=== PATIENT | female | born 1985 | race Caucasian/White ===

== ENCOUNTER 2023-10-07 12:37 | Inpatient (IN) | payer OTHER, SELFPAY ==
[2023-10-07] VITALS (20 sets, daily range): BP systolic 109–153; BP diastolic 64–108; BMI 32.9
--- NOTE | 2023-10-07 09:29 | ED.GENMED ---
History of Present Illness
General
Chief Complaint: Seizure
Source: patient and ambulance crew
Exam Limitations: none
Time Seen by Provider: 10/07/23 09:16
Nursing documentation reviewed up to this point in time: agreed with
Travel History
Have you had any contact with someone who has COVID-19?: No
Do you have any symptoms of coronavirus? Fever > 100 degrees, chills, cough, shortness of breath, sore throat, loss of taste or smell, muscle aches, or headache?: No
History of Present Illness
History of Present Illness:
38-year-old female presents emergency department due to seizure, jaundice and fever. She went to the bathroom, and had a seizure. She has some low back pain but denies any other pain.
Past History
Past History
ED Past Medical History: None
ED Past Surgical History: Gynecological (Ectopic pregnancies with removal of left fallopian tube)
Social History
Tobacco: Non-smoker
Alcohol: Binge drinker
Drug: None
Personal:
Living: with family
Review of Systems
Review of Systems
Allergies reviewed?: Yes
All Other Systems: Not applicable
Constitutional: Reports fever
EENT: Reports other (Bit tongue)
Respiratory: Reports no symptoms
Cardiac: Reports no symptoms
ABD/GI: Reports no symptoms
: Reports no symptoms
Musculoskeletal: Reports back pain
Skin: Reports no symptoms
Neurological: Reports other (Seizure)
Endocrine: Reports no symptoms
Hematologic/Lymphatic: Reports no symptoms
Psychiatric: Reports no symptoms
Phy Exam
Physical Exam
Physical Exam:
Physical Exam
General: Fever 101.3
Neck: supple. no meningeal signs. normal posterior pharynx
Heart: s1/s2 tachycardia, no murmur. equal radial
pulses.
HEENT: Pupils equal round reactive to light, EOMI, scleral icterus
Lungs: no acute respiratory distress. clear bilaterally
Abdomen: normal bowel sounds. not tender. no CVAT
Neuro: alert and oriented. no focal neurological deficits cranial nerves II through XII intact
Skin: Jaundice
Psychiatric: well kept. interactive and cooperative
Extremities: no edema. no calf tenderness. negative homans. good distal pulses
Course
Orders/Labs/Results
Orders:
Orders
10/07/23 09:16
Cardiac Monitoring- Treatment ONCE
IV Insert/Care/Rem.- Treatment PRN
Pulse Ox/cont/shift [RESP] Urgent
Quantity: 1
10/07/23 09:23
Complete Blood Count/With Diff Urgent
Comprehensive Metabolic Panel Urgent
Lactic Acid Q4H
Comment: CANCEL 2nd LACTIC ACID IF 1st LACTIC ACID IS LESS THAN 2
PTT Urgent
Prothrombin Time Urgent
Blood Culture Q30M
LILIBETH Source: Blood/Venous
Specimen Description:
10/07/23 09:26
COVID-19 Antigen Urgent
Source: Nasal Swab
Blood Culture Q30M
LILIBETH Source: Blood/Venous
Specimen Description:
Influenza A+B Rapid Molecular Urgent
LILIBETH Source: Nasal Swab
Specimen Description:
10/07/23 09:27
US Abdomen Complete/Upper Urgent
Comment:
Reason For Exam: jaundice, fever
10/07/23 09:28
CT Head W/o Iv Contrast Urgent
Comment:
Reason For Exam: seizure, jaundice
10/07/23 10:07
0.9% Sodium Chloride 1000 ml [Nss] 1,000 ml IV BOLUS
10/07/23 10:12
CR Chest - 2 Views Urgent
Comment:
Reason For Exam: fever
10/07/23 10:48
Ammonia Urgent
Urinalysis Reflex To Culture Urgent
Date Specimen was Collected: 10/07/23
Time Specimen was Collected: 10:45
Urine Microscopic Reflex Cult Urgent
Urine Culture Urgent
LILIBETH Source: U
Specimen Description:
Date Specimen was Collected: 10/07/23
Time Specimen was Collected: 10:45
10/07/23 11:22
Cefepime HCl [Maxipime] 2,000 mg IV NOW STA
10/07/23 11:52
Alcohol Routine
Urine Drug Abuse Screen Routine
Lorazepam [Ativan] 2 mg .ROUTE .STK-MED ONE
10/07/23 11:57
Lorazepam [Ativan] 4 mg .ROUTE .STK-MED ONE
10/07/23 13:30
Lactic Acid Q4H
Comment: CANCEL 2nd LACTIC ACID IF 1st LACTIC ACID IS LESS THAN 2
Abnormal Lab Results
10/07/23 10/07/23
09:23 10:48
WBC 11.7 H 10^3/uL
(4.8-10.8)
MCH 31.4 H pg
(27.0-31.0)
RDW 17.2 H %
(11.5-14.5)
Plt Count 102 L 10^3/uL
(130-400)
MPV 11.8 H fL
(7.4-10.4)
Abs Immat Gran (auto) 0.2 H 10^3/uL
(0-0.05)
Absolute Neuts (auto) 8.8 H 10^3/uL
(1.4-6.5)
Absolute Monos (auto) 0.7 H 10^3/uL
(0.1-0.6)
Immature Gran % 1.3 H %
(0-0.5)
Lymphocytes % 17.7 L %
(20.5-51.1)
PT 18.2 H Sec
(11.4-14.6)
APTT 38.3 H Sec
(23.4-35.0)
Carbon Dioxide 16 L mmol/L
(22-30)
Glucose 151 H mg/dl
(70-99)
Lactic Acid 7.5 H* mmol/L
(0.7-2.0)
Total Bilirubin 6.4 H mg/dl
(0.2-1.3)
AST 316 H U/L
(14-36)
ALT 101 H U/L
(0-35)
Alkaline Phosphatase 318 H U/L
(38-126)
Ammonia 32 H umol/L
(9-30)
Total Protein 8.7 H g/dl
(6.3-8.2)
Urine Ketones Trace A
(Negative)
Ur Occult Blood Reflex 4+ A
(Negative)
Urine Nitrite (Reflex) Positive A
(Negative)
Urine Bilirubin 2+ A
(Negative)
Urine Urobilinogen 4+ A
(Neg - 1+)
Leukocyte Esterase Rfl 2+ A
(Negative)
Urine RBC 3-6 A /HPF
(0-2)
Urine WBC (Reflex) 70-80 A /HPF
(0-5)
Urine Bacteria (Reflex) Moderate A
(Negative)
Urine Albumin (Reflex) 2+ A
(Neg - Trace)
10/07/23 09:23
10/07/23 09:23
Vital Signs
Initial and Last Documented VS:
Initial Vital Signs
BP
123/84
10/07/23 09:08
Last Documented Vital Signs
Temp Pulse Resp BP Pulse Ox
101.3 F H 129 26 129/85 94
10/07/23 09:09 10/07/23 12:00 10/07/23 12:00 10/07/23 11:00 10/07/23 12:00
MDM/Problems Addressed
Differential Diagnosis Includes:
Sepsis, UTI, pneumonia, cirrhosis, hepatic failure, alcoholism
MDM/Problems Addressed:
38-year-old female with seizure, fever, jaundice, UTI, sepsis. IV fluids given. Cefepime ordered. Suspect seizure may be result of alcohol withdrawal. Admit to hospitalist.
*Radiology
Radiology exam reviewed: preliminary read by ED provider (Chest x-ray no acute findings) and radiology read reviewed (Ultrasound shows hepatomegaly with likely cirrhosis, distended gallbladder without cholelithiasis, CT head no acute findings)
*Pulse Oximetry
Patient hypoxic: no
*Dining Room Host/Hostess Interpretation
Rate: tachycardiac
Interpretation: abnormal
Heart Rate: 101
Rhythm: sinus tachycardia
*Critical Care Note
Total Time (30-74mins, 75-104mins- exclusive of procedures): 30
comment:
Critical care statement: A total of 30 minutes of critical care time was provided for this patient. This includes management of unstable vital signs, evaluation of the patient at bedside, reviewing the patient's pertinent medical records, discussion
with consultants, review of old EKGs and review of pertinent medical records. This time with separate from time utilized to perform the aforementioned documented procedures
Patient Management
Social determinants of health affecting care: Living situation and Strong social support
Discussion with other providers: Hospitalist
Escalation/DeEscalation of care consider admission/obs:
Admit indicated
Update Note
Update Note:
Patient had seizure while I was in the room. She asked me to adjust the bed and then had a complex procedure. She bit her tongue, seizure lasted between 1 and 2 minutes. 3 mg IV Ativan given. She is awake but agitated. Discussed with
Mazin, who states that she drinks daily, but did not drink for the past 2 days.
ED Attending Note
-
Portions of this chart may have been created with voice recognition software.� Occasional wrong word or��sound alike� substitutions may have occurred due to the inherent limitations of voice recognition software.
Discharge Plan
Departure
Patient Disposition: Admit
Date of Disposition: 10/07/23
Time of Disposition: 11:27
Admit to: ICU
Presentation/result/management discussed w/ accepting MD/DO: Hospitalist
Patient with high blood pressure during this ER visit?: Yes
Condition: Fair
Discharge Problem:
Sepsis, UTI (urinary tract infection), Jaundice, Cirrhosis, Seizure, Alcohol withdrawal
Prescriptions:
No Action
No Current Medications
0
Referrals:
NONE,* [Family Provider] -
Interventions
Interventions:
*Risk Screen - Suicide Last Done: 10/07/23 09:16
*General Assessment Last Done: 10/07/23 09:16
*Neglect/Abuse Screening Last Done: 10/07/23 09:16
ED- Fall Risk Assessment Last Done: 10/07/23 09:16
*ED COVID-19 Vaccine History Last Done: 10/07/23 09:16
ED- Cardiac Assessment Last Done: 10/07/23 09:16
ED- Neurological Assessment Last Done: 10/07/23 09:16
ED- Pulmonary Assessment Last Done: 10/07/23 09:16
[2023-10-07 09:44] LABS: % Basophils 0.5 % (0-2); % Eosinophils 0.1 % (0-6); % Immature Granulocytes 1.3 % (0-0.5); % Lymphocytes 17.7 % (20.5-51.1); % Monocytes 5.8 % (1.7-9.3); % Neutrophils 74.6 % (42.2-75.2); Absolute Basophils 0.1 10^3/uL (0-0.2); Absolute Immature Granulocytes 0.2 10^3/uL (0-0.05); Absolute Lymphocytes 2.1 10^3/uL (1.2-3.4); Absolute Monocytes 0.7 10^3/uL (0.1-0.6); Absolute Neutrophils 8.8 10^3/uL (1.4-6.5); Hematocrit 39.4 % (37.0-47.0); Hemoglobin 13.7 g/dL (12.0-16.0); Mean Corp Hgb Conc. 34.8 g/dL (33.0-37.0); Mean Corpuscular Hgb 31.4 pg (27.0-31.0); Mean Corpuscular Volume 90.4 fL (81.0-99.0); Mean Platelet Volume 11.8 fL (7.4-10.4); Nucleated Red Blood Cells % 0 %; Platelet Count 102 10^3/uL (130-400); Red Blood Cell Count 4.36 10^6/uL (4.20-5.40); Red Cell Dist. Width 17.2 % (11.5-14.5); White Blood Cell Count 11.7 10^3/uL (4.8-10.8)
[2023-10-07 09:53] LABS: INR 1.53; PT 18.2 Sec (11.4-14.6)
[2023-10-07 09:54] LABS: APTT 38.3 Sec (23.4-35.0)
[2023-10-07 09:57] LABS: ALT (SGPT) 101 U/L (0-35); AST (SGOT) 316 U/L (14-36); Albumin 4.4 g/dl (3.5-5.0); Alkaline Phosphatase 318 U/L (38-126); Blood Urea Nitrogen 7 mg/dl (7-17); Calcium 8.9 mg/dl (8.4-10.2); Carbon Dioxide 16 mmol/L (22-30); Chloride 99 mmol/L (98-107); Estimated Creatinine Clearance > 125 ml/min; Glucose 151 mg/dl (70-99); Potassium 3.5 mmol/L (3.5-5.1); Sodium 136 mmol/L (135-145); Total Bilirubin 6.4 mg/dl (0.2-1.3); Total Protein 8.7 g/dl (6.3-8.2); eGFR > 60.00
[2023-10-07 10:01] LABS: Lactic Acid 7.5 mmol/L (0.7-2.0)
[2023-10-07 10:12] LABS: COVID-19 Antigen Negative (Negative)
[2023-10-07] MEDS: NSS 1000 IV ×2 (10:55→16:55)
[2023-10-07 10:57] LABS: Urine Albumin 2+ (Neg - Trace); Urine Bilirubin 2+ (Negative); Urine Character Slightly Cloudy (Clear); Urine Color Amber; Urine Glucose Negative (Negative); Urine Ketone Trace (Negative); Urine Leukocyte 2+ (Negative); Urine Nitrite Positive (Negative); Urine Occult Blood 4+ (Negative); Urine Specific Gravity 1.015 (<1.030); Urine Urobilinogen 4+ (Neg - 1+)
[2023-10-07 11:08] LABS: Ammonia 32 umol/L (9-30)
[2023-10-07 11:15] LABS: Urine Bacteria Moderate (Negative); Urine Squamous Cell 0-2 /LPF (Few); Urine White Cell 70-80 /HPF (0-5)
--- NOTE | 2023-10-07 12:08 | EDRN ---
1150 Dr. Gutierrez with at the bedside discussing results and adjusting the head of the stretcher for the patient. Loud yell heard and a verbal order for IV ativan given. Patient currently seizing having yelled out prior to seizure. Tonic clonic
seizing, bleeding from mouth, jaw clamped, SPO2 dropping. Suction used and O2 provided with BVM ready if needed. 2mg ativan given IVP with some response. Additional 1mg ativan IVP administered. Dr. Kori Burroughs is now at the bedside discussing with
Matt and then family who were at the bedside. Orders for ICU to be provided.
--- NOTE | 2023-10-07 12:20 | HPS.HSE ---
Family Physician
-
Family Physician: * NONE
Chief Complaint
-
Seizure episode confusion
History of Present Illness
Patient is 38-year-old female with past medical history of alcohol use disorder, history of miscarriage, obesity was brought in by family after patient had a seizure at home. During my evaluation in ER patient delirious not able to provide any
information, this has been gathered from patient family who is at bedside. Patient has history of alcohol use disorder and drinks bottle of vodka in a day or 2, have history of possible seizure once before although no history of alcohol withdrawal.
No history of head trauma/motor vehicle accident. Patient had last drink on Sunday evening and today in the morning patient was going to bathroom and ended up having seizure. No visible lacerations/cuts on the body. Patient will being evaluated
in ER had a second witnessed seizure got total of 3 mg of Ativan. Patient had tongue bite from the seizure episode.
Patient overall was in her usual state of health otherwise did not have any problem chest pain/shortness of breath/cough/fever/abdominal pain/nausea/vomiting for last few days.
Medical History
Past Medical History
Past Medical History: Reports Other
Additional Past Medical History:
History of miscarriage, obesity
Past Surgical History: Reports Other
Social History
Tobacco: Non-smoker
Alcohol: Daily (Half to 1 bottle of vodka)
Drug: None
Personal:
Living: With Family
Employment: Employed
Family History
Family History: Not pertinent
Allergies / Home Medications
Allergies reflects when Allergies were last updated in [employer].
Home Medications with original date entered in [employer]
Allergy/Medication List:
Allergies
Allergy/AdvReac Type Severity Reaction Status Date / Time
No Known Allergies Allergy Unverified 10/07/23 09:16
Home Medications
No Meds [No Current Medications] 10/07/23
Review of Systems
-
Unable to obtain full review of systems at this time due to: Acuity
Physical Exam
Vital Signs
Vital Signs
Temp Pulse Resp BP Pulse Ox
101.3 F H 129 26 129/85 94
10/07/23 09:09 10/07/23 12:00 10/07/23 12:00 10/07/23 11:00 10/07/23 12:00
Physical Exam
General: Pain and Obese
HEENT: Atraumatic, Oxygen (NC) and Other (Blood from mouth)
Respiratory: Rhonchi
Cardiac: S1/S2, Regular Rhythm and Tachycardia; No Murmur
GI: Soft, Non Distended, Normal Bowel Sounds and Tender; No Organomegaly
Musculoskeletal: No Edema
Skin: No Rash
Neuro: Awake and No Motor Deficits; No Oriented
Psych: Confused
Laboratory Results
-
10/07/23 09:23
10/07/23 09:23
Laboratory Results
PT 18.2 Sec (11.4-14.6) H 10/07/23 09:23
INR 1.53 10/07/23 09:23
APTT 38.3 Sec (23.4-35.0) H 10/07/23 09:23
Lactic Acid 7.5 mmol/L (0.7-2.0) H* 10/07/23 09:23
Total Bilirubin 6.4 mg/dl (0.2-1.3) H 10/07/23 09:23
AST 316 U/L (14-36) H 10/07/23 09:23
ALT 101 U/L (0-35) H 10/07/23:23
Alkaline Phosphatase 318 U/L (38-126) H 10/07/23 09:23
Data Reviewed
-
Diagnostic Radiology: Image Personally Visualized and interpreted, Report Reviewed by me, Discussed with Physician and Discussed with Family
Lab Data: Labs Reviewed by me, Discussed with Physician and Discussed with Family
Impression/Plan
-
CT head
No acute intracranial abnormality.
Abd US
Hepatomegaly with diffuse fatty infiltration and microlobulated border, latter suggesting possible cirrhotic morphology.
Distended gallbladder without findings to confirm cholelithiasis. Gallbladder sludge versus incidental reverberation artifact. No findings to suggest intrahepatic biliary tract dilatation. Negative sonographic Montesinos's sign.
Chest xr
Low lung volumes.
No focal parenchymal consolidation to suggest pneumonia.
Mild elevation of left hemidiaphragm with minor left basilar subsegmental atelectasis.

1. Alcohol use disorder
Alcohol withdrawal
Toxic metabolic encephalopathy from Alc withdrawal
-Patient drinks half to 1 bottle of vodka every day. No previous history of withdrawal
-Blood alcohol level and urine drug screen pending in the ER
-Last reported drink on 10/05 evening.
-Patient tachycardic/delirious/seizures, likely with alcohol withdrawal and started on Precedex drip.
-MSAS/Ativan ordered
-will consider Phenobarb protocol if not improved with ativan/precedex
-Admit to ICU for close monitoring
2. Sepsis from UTI
-Tachycardic/febrile/Mild leukocytosis
-UA showing significant pyuria and bacteriuria
-Urine culture and blood culture collected in ER
-Got cefepime in ER, continue
3. Liver cirrhosis
Jaundice
Coagulopathy
Thrombocytopenia
-Abdominal ultrasound showing microlobulated liver border suggestive of cirrhotic morphology
-No previous diagnosis of liver cirrhosis
-Have associated thrombocytopenia/jaundice/transaminitis/coagulopathy
-INR 1.53, continue monitoring
-AST 316/ALT 101 suggestive alcohol related liver inj. Discriminant factor of 23.
-T kayden 6.4, direct bilirubin check ordered
-NH3 wnl .
-GI consulted to follow with new dx of liver cirrhosis
4. Seizure episode
-Likely alcohol use and alcohol withdrawal related
-CT head within normal limit
-Discussed with neurology, recommended loading of 1 g Keppra. Further dosing per neuro
-neuro planning to do an EEG emergently
DVT PPX - SCD
Full code
Discussed with Patient Family at Bedside
Discussed with neurology/GI/wheat shipper
Total time spent : 90 mins
I personally saw and examined the patient.
I have reviewed all diagnostic interpretations and treatment plans as written.
Time includes patient management by me, time spent at the patients bedside, time to review lab and imaging results, discussing patient care, documentation in the medical record, and time spent with the family or caregiver and discussing care plan
with RN/Consultants.
[2023-10-07] MEDS: KEPPRA 1000 MG IV (12:31)
[2023-10-07] MEDS: MAXIPIME 2000 MG IV ×2 (12:32→19:54)
[2023-10-07] MEDS: ATIVAN 3 MG IV (12:41)
--- NOTE | 2023-10-07 13:33 | CON.INTV ---
Consultation
Consultation Request
Date/Time Consultation Requested: 10/07/2023-1:30 PM
Date/Time Consultation Performed: 10/07/2023-1:30 PM
Requesting Provider: Hospitalist
Performing Provider: Dr. Esparza
Reason for Consultation: Alcohol withdrawal/seizures/critical care management
Medical History
-
Chief Complaint: Alcohol withdrawal/seizure
History of Present Illness:
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 Patient is actually alert
and cooperative in the emergency room receiving an EEG. She complains of some mild shortness of breath but no chest pain, chest congestion, productive cough, abdominal pain, nausea, weakness, increased swelling. She states that she has had perhaps
a seizure once before. Her last drink was 10/05/2019 4 in the evening. She has been hospitalized for withdrawal in the past.
Past Medical History
Past Medical History: None (Alcohol use disorder. Obesity.)
Social History
Tobacco: Non-smoker
Alcohol: Daily (Half a bottle of vodka)
Drug: None
Personal:
Living: With Family
Occupational Exposures: No known asbestos exposure
Environmental Exposures: No known tuberculosis exposure
Family History
Family History: Reviewed & Not Pertinent
Allergies / Home Medications
Allergies
Allergy/AdvReac Type Severity Reaction Status Date / Time
No Known Allergies Allergy Unverified 10/07/23 09:16
Home Medications
Medication Instructions Recorded Confirmed Last Taken Type
No Meds [No Current Medications] 10/07/23 10/07/23 Unknown History
Review of Systems
-
Unable to Obtain full review of systems at this time due to: Other (Per HPI)
Vitals / Labs / Diagnostic Testing
Vital Signs
Temp Pulse Resp BP Pulse Ox
101.3 F H 121 27 126/87 99
10/07/23 09:09 10/07/23 13:00 10/07/23 13:00 10/07/23 13:00 10/07/23 12:45
Lab Data
10/07/23 09:23
10/07/23 09:23
Laboratory Results
10/07/23
09:23
PT 18.2 H
INR 1.53
APTT 38.3 H
Microbiology
10/07/23 09:26 Nasal Swab Influenza Types A & B (AMAN) - Final
Negative for Influenza A & B, NAAT
Negative results must be combined with clinical observations
and patient history.
Nucleic Acid Amplification test (NAAT)performed on the
[employer] platform.
Diagnostic Testing:
Physical Exam
-
Exam:
Well-nourished and well-developed in no apparent distress
HEENT-atraumatic, normocephalic
Neck-supple, no JVD, no bruit
Heart-regular rate and rhythm-no murmurs, rubs or gallops
Chest-clear to auscultation, no wheezes, crackles
Back-no tenderness
Abdomen-soft, nontender, nondistended, no hepatosplenomegaly
Extremities-no cyanosis, clubbing, edema and good peripheral pulses
Integument-intact, no rashes, lesions or ecchymosis
Neurology-alert and oriented, nonfocal motor and sensory exam
Assessment
-
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
Assessment
Alcohol withdrawal/DTs/seizures-last drink 10/05/2023 evening
Seizure episode
Sepsis from UTI-tachycardia, febrile, mild leukocytosis
UTI
Cirrhosis-abdominal ultrasound suggestive of
Thrombocytopenia
Elevated LFTs-total bilirubin 6.4, AST 316, ALT 101
Coagulopathy
Mild leukocytosis
Thrombocytopenia-platelet count 102
Lactic acidosis
Metabolic acidosis
Obstructive sleep apnea suspected
Conditions present prior to admission:
Alcohol use disorder.
Cirrhosis suspected
[id number]
Plan
Patient will be admitted to medical intensive care unit withalcohol withdrawal syndrome
Supplemental oxygen as needed
Aspiration precautions
Incentive spirometry
Head of bed elevation
Follow MSAS
Alcohol withdrawal treatment protocol will continue
Supplements glucose and thiamine to prevent Wernicke's encephalopathy
Supplement multivitamins and folate
Replete deficiencies and glucose, potassium, magnesium and phosphorus
Benzodiazepines as needed-diazepam or lorazepam
Precedex drip if needed
If refractory DTs then would consider Phenobarbital 130-260 mg IV every 20 minutes
Alcohol cessation counseling-Dr. Esparza asked if she thought about quitting-she replied 'yes probably cutting down'-Dr. Esparza told her she needs to quit completely as she has cirrhosis and she is dying-she will think about it
Consider psychiatry evaluation
Consider rehabilitation
Check cultures
Empiric antibiotics as UTI suspected-received cefepime in the emergency room
Follow lactate
Intravenous fluids
Norepinephrine/pressors if needed
Monitor LFTs
Discriminant factor of 23
GI evaluation-pending
Seizure precautions
Keppra load
EEG-pending
Neurology evaluation pending
DVT prophylaxis-mechanical
GI prophylaxis
Early nutrition
Early mobilization
Outpatient sleep disordered breathing/obstructive sleep apnea follow-up
Critical care statement: A total of 50 minutes of critical care time was provided for this patient today. This includes management of unstable vital signs, treatment for and prevention of alcohol withdrawal, evaluation of the patient at bedside,
reviewing the patient's pertinent medical records including radiographs, delirium tremens prophylaxis, sepsis management, microbiology, laboratory evaluations, and discussion with primary team, consultants, pharmacy, nutrition, physical therapy,
case management, charge nurse, critical care nursing, and respiratory therapy.
Diagnostic data:
Chest x-ray 10/07/2023-low lung volumes, no focal parenchymal consolidation to suggest pneumonia, mildly elevated left hemidiaphragm with basilar subsegmental atelectasis
Abdominal ultrasound 10/07/2023-hepatomegaly with diffuse fatty infiltration and microlobulated border suggestive of cirrhosis, distended gallbladder without cholelithiasis, gallbladder sludge versus incidental artifact, negative Montesinos sign
CT head 10/07/2023-no acute intracranial abnormalities
Data Reviewed
-
EKG: Report reviewed by me
Radiology: Image personally visualized and interpreted and Report reviewed by me
Ultrasound: Report reviewed by me
Medical Tests (Nuc Med, Echo etc): Report reviewed by me
Labs: Labs reviewed by me
Critical Care Time (in minutes): 50
[2023-10-07 13:46] LABS: Amphetamines Negative (Negative); Barbiturates Negative (Negative); Benzodiazepines Negative (Negative); Buprenorphine Negative (Negative); Cocaine Negative (Negative); Methadone Negative (Negative); Methamphetamines Negative (Negative)
[2023-10-07 13:47] LABS: Marijuana Negative (Negative); Opiates Negative (Negative); Phencyclidine Negative (Negative); Tricyclic Antidepressants Negative (Negative)
[2023-10-07 15:06] LABS: Alcohol None Detected
--- NOTE | 2023-10-07 15:14 | CON.NEURO4 ---
Consultation - Neurology 4
-
CONSULTING PHYSICIAN: Zara
REFERRING PHYSICIAN: Manjeet
DICTATED BY: Zara
DATE/TIME OF REQUEST: 10/07/23 midday
DATE/TIME OF CONSULTATION: 10/07/23
Reason for Consultation: seizure
History of Present Illness:
38-year-old female with past medical history of alcohol use disorder, miscarriage, and possible seizure years ago in the setting of alcohol use brought in by family after she had a witnessed seizure at home. She apparently drinks about half a
bottle of vodka each day. No clear head trauma with the seizure or prior. Last drink was on Sunday evening. The seizure occurred in the context of going to the bathroom. While being evaluated in the ED she had a second convulsive seizure and
received 3 mg of Ativan. + tongue laceration with the seizure. She was initially only intermittently following commands. Stat EEG showed no evidence of any ongoing seizure. No clear epileptiform abnormalities. Head CT without any acute
findings. She was loaded with Keppra 1 g IV in the ED.
She is been found to be septic from a UTI and also has cirrhosis with coagulopathy.
Past Medical History: miscarriage, ectopic pregnancies, reports having a seizure years ago that may have been associated with ETOH w/d per patient
Surgical History: ectopic pregnancies with removal of L fallopian tube
Family History: denies family history of seizure
Social History:
Tobacco: Non-smoker
Alcohol: Binge drinker
Drug: None
Personal:
Living: with family
Allergies
No Known Allergies Allergy (Unverified 10/07/23 09:16)
Home Medications
Medication Instructions Recorded
No Meds [No Current Medications] 10/07/23
Review of Symptoms:
Patient denies any fever, headache, chest pain, shortness of breath, GI or symptoms.
�Per the HPI.�All systems are reviewed negative except above.
Vital Signs
Temp Pulse Resp BP Pulse Ox
101.3 F H 113 27 134/94 95
10/07/23 09:09 10/07/23 14:15 10/07/23 14:15 10/07/23 14:00 10/07/23 13:15
Lab Results
10/07/23 09:23
10/07/23:23
PT 18.2 Sec (11.4-14.6) H 10/07/23:23
INR 1.53 10/07/23:
APTT 38.3 Sec (23.4-35.0) H 10/07/23:23
Sodium 136 mmol/L (135-145) 10/07/23:
Potassium 3.5 mmol/L (3.5-5.1) 10/07/23:23
BUN 7 mg/dl (7-17) 10/07/23:23
Glucose 151 mg/dl (70-99) H 10/07/23:23
Calcium 8.9 mg/dl (8.4-10.2) 10/07/23 09:23
Ur Buprenorphine Negative (Negative) 10/07/23 11:52
Physical Exam:
The patient is afebrile, heart sounds S1 and S2 are regular , and chest is clear to auscultation bilaterally. +jaundice
Neurologic Examination:
The patient is awake, alert and oriented; oriented to location; able to provide some vague medical history. (He/She) is able to follow commands and answer questions appropriately. There is no aphasia or dysarthria. On cranial nerve assessment,
pupils are 3 mm bilateral, round and reactive to light and accommodation. Visual garza are full. Extraocular movements are intact. Facial sensations are intact and bilaterally symmetrical, there is no facial asymmetry. Hearing is intact bilaterally
to normal conversation volume. Tongue palate and uvula are midline. Sternocleidomastoid strengths are full bilaterally. Motor strengths are 5/5 bilateral upper and lower extremities on medical research [place] scale. There is no drift or
involuntary movement noted. Deep tendon reflexes are 2+ bilateral upper and lower extremities and Babinski is absent bilaterally. Sensations of pain, touch, temperature and vibration are intact and bilaterally symmetrical. There was no extinction
noted on double simultaneous stimulation. Coordination is intact by finger to nose bilaterally.
Neuro Imaging:
HCT, no acute findings:
'Unenhanced CT imaging of the head reveals no findings to suggest recent infarction, intracranial hemorrhage, extra-axial fluid collection, mass effect or midline shift. The ventricles, cisterns and sulci are within the limits of normal. The
brainstem and posterior fossa structures demonstrate no significant focal abnormality.'
Impression:
JUAN CARLOS PRICE is a 38 year old F who has presented to the hospital after a witnessed seizure at home in the setting of alcohol withdrawal and sepsis from UTI as well as liver cirrhosis. She had a second seizure in the ED. She was only
intermittently following commands initially. Stat EEG showed no evidence of any ongoing epileptiform abnormalities/ruled out nonconvulsive status. Her mental status is now improved and she is following commands but she has become more agitated.
Recommendations:
1. stat EEG showed no ongoing seizure activity
2. loaded with Keppra 1g IV in ER, continue 500mg IV q12 while at risk for further w/d seizure; can taper after; reviewed with pharmacy; ok with adding phenobarbital if needed from standpoint of ETOH w/d
3. reviewed HCT; will hold off on MRI brain for now
4. ETOH withdrawal protocol
5. thiamine supplementation
6. seizure precautions and neurochecks
7. check UDS
Critical care time 65 mins
Discussed patient care with: patient and her partner, nursing, ED staff, pharmacy, pharmacy picking technician
--- NOTE | 2023-10-07 15:27 | EEG.RPT ---
Electroencephalogram Report
Recording
Date of EE10/07/23
Type of EEG: Routine
Length of EEG recordin mins
Done with Video Recording: Yes
Patient Status: Emergency Room
Recording Conditions: Awake
Hyperventilation Performed: Yes
Photic Stimulation Performed: Yes
Report
METHODS
A 21 channel digitized electroencephalogram was performed at [facility]. The 10/20 international system of electrode placement was used. In addition to EEG, the patient was monitored for EKG. The duration of the recording was 28 minutes.
BACKGROUND
During the awake state, with the eyes closed, diffuse excess beta activity was seen with no clear underlying posterior dominant rhythm.
SLEEP
Stage II sleep was not obtained.
HYPERVENTILATION
Hyperventilation resulted in no slowing of the background activity but no appearance of abnormal activity.
PHOTIC STIMULATION
Photic stimulation using a step-agudelo increase in photic frequency varying from 1-31 Hertz resulted in no driving responses but no appearance of abnormal activity.
ABNORMAL EEG ACTIVITY
This EEG is abnormal due to the presence of diffuse excess beta activity without any no clear underlying posterior dominant rhythm.
CLINICAL EVENTS
One episode of not listening to commands noted by the maintenance department technician at 14:58 had no epileptiform correlate.
INTERPRETATION AND CLINICAL CORRELATION
This EEG is abnormal due to the presence of diffuse excess beta activity without any no clear underlying posterior dominant rhythm; this can be seen due to drug effect or anxiety; one episode of not listening to commands had no epileptiform
correlate.
[2023-10-07 15:51] LABS: Lactic Acid 2.3 mmol/L (0.7-2.0)
[2023-10-07 16:37] LABS: Direct Bilirubin 4.1 mg/dl (0.0-0.4)
[2023-10-07] MEDS: ATIVAN 2 MG IV ×4 (16:49→20:55)
[2023-10-07] MEDS: PHENOBARBITAL 97.5 MG IV ×2 (17:46→22:05)
[2023-10-07] MEDS: NSS (PRESERVATIVE FREE) 10 ML IV (18:31)
[2023-10-07] MEDS: PROTONIX IV 40 MG IV (18:31)
[2023-10-07] MEDS: THIAMINE INJECTION 200 MG IV (18:31)
[2023-10-07 18:56] LABS: Creatine Phosphokinase 513 U/L (30-135); GGTP 1079 U/L (12-43); Lactic Acid 1.8 mmol/L (0.7-2.0); Magnesium 1.4 mg/dl (1.6-2.3); Phosphorus 1.2 mg/dl (2.5-4.5)
[2023-10-07 19:03] LABS: B-Hydroxybutyrate 0.43 mmol/L (0.02-0.27)
--- NOTE | 2023-10-07 19:23 | PTCARENOTE ---
1630-Received pt from ED via stretcher.
Pt awakens spontaneously and to voice.Initially the date was correct,now she responds it is 1921.Pt does know she is at .RADHA 3mm.+COO[place].Frequently rolling from side to side,and at times she is prone.c/o low back pain that she states is r/t fall
today.Pt positioned for comfort.No seizure activity noted.Only 1 seizure pad is available despite calling [facility] and other nursing units.MSAS 14-15.Ativan given as per MSAS scale.ST noted.BP 131/83.IVF infusing.Temp 103.1 po.Decreased breath sounds
throughout.POX 94% on RA.+ tachypnea.No SOB noted.NPO.+ Small liquid green BM. Incontinent of large amount tea colored urine.Abrasion noted under chin.2 areas of ecchymosis noted on abdomen.+ jaundice noted.Pt's Mazin at bedside.Plan of care
discussed with pt and her .
[2023-10-07] MEDS: STERILE WATER FOR INJECTION 10 ML IV (19:53)
[2023-10-07] MEDS: OFIRMEV 100 IV (19:53)
[2023-10-07] MEDS: MAGNESIUM SULFATE 50 IV (19:53)
[2023-10-07] MEDS: KEPPRA 500 MG IV (19:54)
[2023-10-07 20:26] LABS: Blood Urea Nitrogen 7 mg/dl (7-17); Calcium 7.8 mg/dl (8.4-10.2); Carbon Dioxide 23 mmol/L (22-30); Chloride 106 mmol/L (98-107); Estimated Creatinine Clearance > 125 ml/min; Glucose 101 mg/dl (70-99); Potassium 3.2 mmol/L (3.5-5.1); Sodium 136 mmol/L (135-145); eGFR > 60.00
--- NOTE | 2023-10-07 20:30 | PTCARENOTE ---
Assumed care of pt at 1900. Pt is alert to self and aware she is in the hospital, disoriented to time (said it was January 1922) and situation. Pt very restless, continuously turning herself in bed and ends up wrapped in her IV tubing and linens.
Purewick had been in place but suction tubing was almost wrapped around pt's neck, this was disconnected and pt is in a brief. Temp 103.1, order obtained for Ofirmev which was administered, had to physically hold pt's arm straight in order to get
medication in and not lose the IV site (other IV site was residential out and pt not holding still to let me fix it at the time). Ativan 2mg given for MSAS score, see flowsheet and EMAR. Mag 2gm rider administered. Pt had removed her pulse ox, this was
replaced and reading was 86% on RA. Placed on 2LNC-->no change in SpO2. O2 increased to 4L-->90%, increased to 6LNC and now is 92%. Pt tachypneic with RR in high 30s-40s. ST on monitor, 110-120 right now but >130 just prior to receiving Ativan.
Physical assessment completed, see nursing shift assessment flowsheet for details. Seizure precautions in place. Bed alarm activated.
[2023-10-07] MEDS: POTASSIUM PHOSPHATE 259.090899999999976 MEQ IV (22:08)
[2023-10-08] VITALS (27 sets, daily range): BP systolic 46–158; BP diastolic 35–125; BMI 33.2
[2023-10-08] MEDS: THIAMINE INJECTION 200 MG IV ×3 (00:38→16:02)
[2023-10-08] MEDS: ATIVAN 1 MG IV ×4 (01:13→16:23)
--- NOTE | 2023-10-08 01:20 | PTCARENOTE ---
Assessment unchanged. Pt's temperature down to 99.3 after receiving Ofirmev and turning temp all the way down in the room. Pt received Ativan 2mg at 1941 and 2054, Phenobarb around 2199 and then was much less restless and fell asleep. Went into room
around 0030 to clean patient up, full soap and water bed bath done and all linens changed. Pt was incontinent of loose stool and large amount of urine. After fully bathed pt proceeded to have another large loose BM and was cleaned up again. At this
time pt was awake and restless/fidgety. Loosely oriented to time, relative to earlier when she said it was 1921--now she said it was 2022. RAC IV was senior care out, this was removed. L wrist IV positional and pt also picking at it despite being told
multiple times to please not touch it. Spandage placed over IV site. Two new sites placed: R forearm #20 and L forearm #22. Ativan 1mg administered at 0113. Pt pulling off pulse ox and picking at IV sites, keeps removing her gown, continuously
turning in bed and laying prone so that IV tubing is wrapped around her and taut. Able to wean pt off of her oxygen. MSAS protocol ongoing, bed alarm activated.
[2023-10-08] MEDS: NSS 1000 IV ×2 (02:11→11:21)
--- NOTE | 2023-10-08 03:27 | PTCARENOTE ---
At around 0305, pt's SpO2 alarm went off, reading 47%. Unsure if erroneous or not--waveform in room looked somewhat regular, pulse ox was still in place (had thought maybe pt had pulled it off). Light turned on, pt noted to have had a nose bleed and
had blood all over her nose and mouth and on the pillow case. Pt easily awakened, pulse ox then reading 94%. Blood cleaned off patient's face. Pt becomes restless when awakened, turned herself prone again and had wires and tubing tangled underneath
her. Incontinent of urine--incontinence care done. Temp now 98.3.
[2023-10-08 04:11] LABS: Hematocrit 38.3 % (37.0-47.0); Mean Corp Hgb Conc. 33.9 g/dL (33.0-37.0); Mean Corpuscular Hgb 31.3 pg (27.0-31.0); Mean Corpuscular Volume 92.3 fL (81.0-99.0); Red Blood Cell Count 4.15 10^6/uL (4.20-5.40); Red Cell Dist. Width 17.6 % (11.5-14.5); White Blood Cell Count 5.4 10^3/uL (4.8-10.8)
[2023-10-08] MEDS: MAXIPIME 2000 MG IV ×2 (04:11→11:22)
[2023-10-08] MEDS: STERILE WATER FOR INJECTION 10 ML IV ×2 (04:11→11:22)
[2023-10-08 04:15] LABS: Ammonia 11 umol/L (9-30)
[2023-10-08 04:29] LABS: Platelet Count 56 10^3/uL (130-400)
[2023-10-08 04:32] LABS: ALT (SGPT) 57 U/L (0-35); AST (SGOT) 211 U/L (14-36); Albumin 3.4 g/dl (3.5-5.0); Alkaline Phosphatase 209 U/L (38-126); Blood Urea Nitrogen 6 mg/dl (7-17); Calcium 7.4 mg/dl (8.4-10.2); Carbon Dioxide 24 mmol/L (22-30); Chloride 108 mmol/L (98-107); Direct Bilirubin 3.6 mg/dl (0.0-0.4); Estimated Creatinine Clearance > 125 ml/min; Glucose 85 mg/dl (70-99); Magnesium 2.2 mg/dl (1.6-2.3); Phosphorus 3.4 mg/dl (2.5-4.5); Potassium 3.6 mmol/L (3.5-5.1); Sodium 138 mmol/L (135-145); Total Bilirubin 5.1 mg/dl (0.2-1.3); Total Protein 7.3 g/dl (6.3-8.2); eGFR > 60.00
--- NOTE | 2023-10-08 04:47 | PTCARENOTE ---
0400 assessment unchanged. SR 80s-90s on monitor. SpO2 100% on RA. Medicated for MSAS score, see flowsheet/EMAR. Bed alarm activated.
[2023-10-08] MEDS: KCL 160 MEQ IV (06:14)
[2023-10-08] MEDS: PRECEDEX 100 IV ×2 (06:49→21:47)
--- NOTE | 2023-10-08 06:49 | CON.GI ---
Addendum entered and electronically signed by Janee Bond MD 10/08/23 14:59:
I saw and examined the patient.
The RN HOSPITAL or PA's note was reviewed and I agree with the note.
Comment: 38-year-old female with history of alcohol abuse presenting with seizures, fever, noted to have jaundice as well.
On admission, noted to have leukocytosis and gram-negative bacteremia and UA positive for UTI. Patient denies any GI complaints, no abdominal pain, nausea or vomiting. No heartburn or trouble swallowing. No constipation, diarrhea, blood in the
stool or black stool. Reports drinking a bottle of wine couple of times a week. On admission, AST, ALT 3-5 times upper limit of normal, elevated bilirubin and alkaline phosphatase as well. Discriminant function about 30. Abdominal ultrasound
showing possible cirrhosis of the liver.
-Alcoholic liver disease with new diagnosis of cirrhosis, alcohol abuse with current alcohol use
Monitor for DTs
Will check hepatitis panel
Avoid hepatotoxic medication
Will follow discriminant function closely for acute alcoholic hepatitis though with bacteremia, not a candidate for steroids.
Reviewed alcohol abstinence, needs outpatient rehab.
Would not follow ammonia as it is not recommended to diagnose hepatic encephalopathy, more of a clinical diagnosis.
-Gram-negative bacteremia
Currently on antibiotics
Will follow
Addendum entered and electronically signed by LILLIANA Spears 10/08/23 09:16:
hep B/C pending
Original Note:
Consultation
-
Date/Time Consultation Requested: 10/07/23 1600
Date/Time Consultation Performed: 10/08/23 0800
Requesting Provider: Chantelle Burroughs MD
Performing Provider: LILLIANA Harper, Janee Bond MD
Reason for Consultation: increased LFT's
Medical History
Chief Complaint / HPI
Chief Complaint: ETOH withdrawal
History of Present Illness:
Pt is a 38yo with hx ETOH abuse(currently admits to several cups vodka every other day), obesity with noted seizure prior to admission. On admission she is note with WBC 11,700, platelet 102 with drop to 56, INR 1.53., lactate 7.5, libertad 6.4, AST 316,
ALT 101., alk phos 318 and ammonia of 32. She is also noted with gram neg bacilli in blood and + UA with concern for UTI. US abdomen with changes of HM with fatty infiltration ans possible cirrhosis, distended GB with sludge. Pt denies hx liver
issues or hepatitis in past. No new medication or excessive Tylenol use.
Pt currently with some sedation with W/D protocol but denies odynophagia, dysphagia, nausea, vomiting, abdominal pain, diarrhea, constiaption, or rectal bleeding. Denies hx EGD or colonoscopy in past.
Past Medical History
Past Medical History: Other (ETOH abuse, obesity, seizure disorder)
Social History
Tobacco: Non-Smoker
Alcohol: Chronic Alcoholic (admits to vodka several cups every other day)
Drug: None
Personal:
Living: With Family
Employment: Employed
Family History
Family History: Other (denies family hx liver issues)
Allergies / Home Medications
Allergy/AdvReac Type Severity Reaction Status Date / Time
No Known Allergies Allergy Unverified 10/07/23 09:16
Medication Instructions Recorded
No Meds [No Current Medications] 10/07/23
Review of Systems
-
Unable to obtain full review of systems at this time due to: Other (sedated with precedex withdrawal protocol)
History Source: Patient
Constitutional: Reports Weight Loss (few lbs) and Fatigue
EENT: Reports No Symptoms
Respiratory: Reports No Symptoms
Cardiac: Reports No Symptoms
Abdomen/GI: Reports No Symptoms
: Reports No Symptoms
Musculoskeletal: Reports No Symptoms
Skin: Reports No Symptoms
Neurological: Reports Weakness
Endocrine: Reports No Symptoms
Hematologic/Lymphatic: Reports No Symptoms
Vital Signs
Temp Pulse Resp BP Pulse Ox
98.3 F 90 36 143/99 100
10/08/23 03:23 10/08/23 06:00 10/08/23 06:00 10/08/23 06:00 10/08/23 06:00
Physical Exam
Exam
General: Other (sleepy but arousable and disheveled appearing)
HEENT: Other
Respiratory: Clear
Cardiac: Other (slight tachy around 100)
GI: Soft, Non Tender (some limitation in pt positioning) and Non Distended
Musculoskeletal: No Clubbing and No Cyanosis
Skin: Warm and Dry
Neuro: Other (sleepy but answered one work responses to most questions)
Psych: Calm
Results
WBC 5.4 10^3/uL (4.8-10.8) 10/08/23 03:41
Hgb 13.0 g/dL (12.0-16.0) 10/08/23 03:41
Hct 38.3 % (37.0-47.0) 10/08/23 03:41
MCV 92.3 fL (81.0-99.0) 10/08/23 03:41
Plt Count 56 10^3/uL (130-400) L D 10/08/23 03:41
Absolute Neuts (auto) 8.8 10^3/uL (1.4-6.5) H 10/07/23 09:23
PT 18.2 Sec (11.4-14.6) H 10/07/23 09:23
INR 1.53 10/07/23 09:23
APTT 38.3 Sec (23.4-35.0) H 10/07/23 09:23
Sodium 138 mmol/L (135-145) 10/08/23 03:41
Potassium 3.6 mmol/L (3.5-5.1) 10/08/23 03:41
Chloride 108 mmol/L (98-107) H 10/08/23 03:41
Carbon Dioxide 24 mmol/L (22-30) 10/08/23 03:41
BUN 6 mg/dl (7-17) L 10/08/23 03:41
Creatinine 0.5 mg/dL (0.6-1.0) L 10/08/23 03:41
Calcium 7.4 mg/dl (8.4-10.2) L 10/08/23 03:41
Total Bilirubin 5.1 mg/dl (0.2-1.3) H 10/08/23 03:41
AST 211 U/L (14-36) H 10/08/23 03:41
ALT 57 U/L (0-35) H 10/08/23 03:41
Alkaline Phosphatase 209 U/L (38-126) H 10/08/23 03:41
Diagnostic Image Results:
10/07/23 US abdomen
�Hepatomegaly with diffuse fatty infiltration and microlobulated border, latter suggesting possible cirrhotic morphology.
Distended gallbladder without findings to confirm cholelithiasis. Gallbladder sludge versus incidental reverberation artifact. No findings to suggest intrahepatic biliary tract dilatation. Negative sonographic Montesinos's sign.
Common bile duct, pancreas, IVC and abdominal aorta significantly obscured at least in part due to overlying bowel gas.
10/07/23 HCT neg
Prior GI Procedures:
EGD: none
Colonoscopy: none
Assessment / Plan
-
Pt is a 38yo with hx ETOH abuse, obesity with noted seizure prior to admission. On admission she is note with WBC 11,700, platelet 102 with drop to 56, INR 1.53., lactate 7.5, libertad 6.4, AST 316, ALT 101., alk phos 318 and ammonia of 32. US with
changes of HM with fatty infiltration ans possible cirrhosis, distended GB with sludge.
-ETOH withdrawal seizure
-ETOH abuse
-elevated LFT's with concern for ETOH hepatitis with possible cirrhosis
-+ blood cx gram neg bacilli
-+ UA with concern for UTI
-mild ammonia elevation
-Elevated INR related to liver decompensation
-thrombocytopenia related to liver decompensation
-elevated lactate
-obesity
PLAN:
etiology of elevated LFT's with elevated INR and thrombocytopenia related to ETOH hepatitis vs underlying cirrhosis with some decompensation with thrombocytopenia and elevated INR
also concern for + blood cx and UA with possible UTI-- await cultures
DF on admission 30.3 with control of 13 no role for steroids as <32 and concern for concurrent infectious process
cont to trend labs with daily INR
ETOH abstinence-- social work for resources
avoid heptotoxic medication
repeat ammonia normal -- hold lactulose for now and monitor mental status
cont management for withdrawal per ICU team
OP GI follow up with concern for underlying cirrhosis
remains on Miralax daily
-
-
Thank you for consultation and allowing me to participate in the patient's care. Please call the manager environmental affairs GI physician during the after hours with any questions or concerns.
[2023-10-08] MEDS: KEPPRA 500 MG IV (07:48)
[2023-10-08] MEDS: PROTONIX IV 40 MG IV (07:48)
[2023-10-08] MEDS: NSS (PRESERVATIVE FREE) 10 ML IV (07:48)
[2023-10-08] MEDS: FOLVITE PO (07:49)
[2023-10-08] MEDS: PHENOBARBITAL 97.5 MG IV ×3 (07:49→21:43)
--- NOTE | 2023-10-08 08:00 | PTCARENOTE ---
PT received in bed, drowsy but arousable, disoriented to place and time, PT can be restless at times, rolling all over the bed tangling in IV tubing and monitor cables, NSR, + pulses trace edema, room air, shallow breathes, poor effort, fine
crackles bibasilar, abdomen soft NT +BS, scattered bruises notes, Left FA and Right INT flushed and patent, removing left wrist INT occluded, Precedex @ 0.2 mg/min, received order from DR Dudley for Ofirmev due to fever, administered as ordered
--- NOTE | 2023-10-08 08:01 | W.PN.INTV ---
Today's Communication / Plan
Recommendations
Precedex gtt and Abx
Follow up blood and urine Cx sensitivities
Acute liver failure workup including viral hepatitis serology and autoimmune serologes, although sepsis in setting of chronic alcoholic liver disease is likley explanation for her clinical pciture + labs
Neurochecks q1hr
Aspiration precautions
Hold of on DVT chemical ppx until plt count stabilizes and she has no evidence of bleeding
Small amount of ascitic fluid --> if she spikes fever then will see if enough fluid for paracentesis
Low threshold to be intubated
Assessment
-
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
Assessment
Alcohol withdrawal/DTs/seizures-last drink 10/05/2023 evening - currently on precedex gtt
Seizure episode likely withdrawal seizure
Gram-negative bacteremia - source likely due to UTI
AMS likely due to TME in setting of precedex + ativan; acute liver failure also on differential given her INR is >1.5 with elevated bilirubin and low platelet count with AMS
Complicated UTI
Alcoholic liver disease with suspected liver cirrhosis
Thrombocytopenia
Elevated LFTs, TCP & coagulopathy - likely related to acute liver failure in setting of sepsis with underlying suspected cirrhosis with alcohol use disorder; no RUQ or epigastric abd pain so doubt this is an acute alcoholic hepatitis
Leukocytosis
Lactic acidosis -now resolved
Metabolic acidosis - now resolved
Obstructive sleep apnea suspected
Conditions present prior to admission:
Alcohol use disorder.
Cirrhosis suspected
[id number]
Plan
Continue Precedex drip and wean as tolerated
Phenobarbital protocol
Supplemental oxygen as needed
Aspiration precautions
Incentive spirometry
Head of bed elevation
Follow MSAS
Alcohol withdrawal treatment protocol will continue
Supplements glucose and thiamine to prevent Wernicke's encephalopathy
Supplement multivitamins and folate
Replete deficiencies and glucose, potassium, magnesium and phosphorus
Benzodiazepines as needed but reduce dosing and frequency to avoid worsening mental status
Alcohol cessation counseling-Dr. Esparza asked if she thought about quitting-she replied 'yes probably cutting down'-Dr. Esparza told her she needs to quit completely as she has cirrhosis and she is dying-she will think about it
Consider psychiatry evaluation
Consider rehabilitation
Change cefepime to ceftriaxone given cefepime's tendency to lower seizure threshold, and follow-up urine culture sensitivities
Maintain MAP>65
Trend LFTs
GI on board --> recs appreciated
Considering acute liver failure is on the differential, trend INR, LFTs, GGT, LD; check autoimmune markers including anti-smooth muscle antibody, soluble liver antigen antibody, viral hepatitis serologies, and ceruloplasmin
If LFTs continue to worsen then would re-check RUQ with doppler to rule out veno-occlusive disease
Seizure precautions
Neurology on board --> recs appreciated
DVT prophylaxis-mechanical (hold off on chemical ppx for now given the dropping plt count and coagulopathy)
GI prophylaxis
Early nutrition
Early mobilization
Outpatient sleep disordered breathing/obstructive sleep apnea follow-up
Critical care statement: A total of 41 minutes of critical care time was provided for this patient today. This includes management of unstable vital signs, treatment for and prevention of alcohol withdrawal, evaluation of the patient at bedside,
reviewing the patient's pertinent medical records including radiographs, delirium tremens prophylaxis, sepsis management, microbiology, laboratory evaluations, and discussion with primary team, consultants, pharmacy, nutrition, physical therapy,
case management, charge nurse, critical care nursing, and respiratory therapy.
Diagnostic data:
Chest x-ray 10/07/2023-low lung volumes, no focal parenchymal consolidation to suggest pneumonia, mildly elevated left hemidiaphragm with basilar subsegmental atelectasis
Abdominal ultrasound 10/07/2023-hepatomegaly with diffuse fatty infiltration and microlobulated border suggestive of cirrhosis, distended gallbladder without cholelithiasis, gallbladder sludge versus incidental artifact, negative Montesinos sign
CT head 10/07/2023-no acute intracranial abnormalities
CT A/P 10-08-2023:
1. Urinary bladder wall is thickened, with adjacent inflammatory change, suggestive of cystitis. No nephrolithiasis or hydronephrosis on either side. No significant perinephric stranding on either side.
2. Liver is of diffusely heterogeneous attenuation, overall attenuation is similar to the contents of the gallbladder, consistent with diffuse fatty infiltration. Given heterogeneous attenuation pattern, hepatitis should also be considered. Liver is
enlarged, measuring 26.3 cm in diameter.
3. Nodular contour of the liver, suggestive of cirrhosis. Splenomegaly and multiple splenorenal collaterals, suggestive of portal hypertension.. Small amount of pelvic free fluid, which may be physiologic, but may also represent early ascites. No
fluid seen adjacent to the liver or spleen.
Subjective Dataa
Subjective Data
Date of Service:
Date of Service: October 08, 2023
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
Subjective:
Seen this AM. BP 123/83. Sleepy, on precedex gtt at 0.2mcg/kg/hr. she awakens easily and is answering questions appropriately. Family members x2 at bedside. She denies belly pain, headache, chest pain or shortness of breath.
Review of Systems
General: Other (Negative unless mentioned above)
Objective Data
Data Reviewed
Vital Signs / I&O / Oxygen:
Vital Signs
Temp Pulse Resp BP Pulse Ox
100.1 F 96 35 142/92 97
10/08/23 07:25 10/08/23 08:00 10/08/23 08:00 10/08/23 07:00 10/08/23 07:00
Intake and Output
10/07/23 10/08/23 10/09/23
06:59 06:59 06:59
Intake Total 1969 / 2073.4 313.2 / 313.2
Output Total 100 / 100
Balance 1869 / 1973.4 313.2 / 313.2
SaO2 97
Nasal Cannula flow liters per 2
minute
Physical Exam
General: Comfortable
HEENT: Normocephalic and Other (Icterus bilaterally)
Cardiovascular: S1-S2 and Peripheral Edema (negative)
Respiratory: Clear, Wheeze (negative), Crackles (negative), Rhonchi (negative) and Non-Labored Respirations
GI: Soft, Non Distended, Non Tender and Normal Bowel Sounds
Neurology: Awake, Tremors (negative) and Lethargic
Skin: Warm and Dry
Labs/Micro/Reports
Lab Data
10/08/23 03:41
10/08/23 03:41
Microbiology
10/07/23 10:48 Urine Urine Culture - Preliminary
Escherichia coli
10/07/23 09:26 Blood/Venous Blood Culture - Preliminary
Positive culture in progress
10/07/23 09:26 Blood/Venous Gram Stain - Final
10/07/23 09:23 Blood/Venous Blood Culture - Preliminary
Positive culture in progress
10/07/23 09:23 Blood/Venous Gram Stain - Final
10/07/23 09:26 Nasal Swab Influenza Types A & B (AMAN) - Final
Negative for Influenza A & B, NAAT
Negative results must be combined with clinical observations
and patient history.
Nucleic Acid Amplification test (NAAT)performed on the
[employer] platform.
[2023-10-08] MEDS: OFIRMEV 100 IV ×2 (08:27→20:28)
[2023-10-08] MEDS: FOLVITE 50.2000000000000028 MG IV (08:56)
--- NOTE | 2023-10-08 10:03 | W.PN.NEURO.1 ---
Today's Communication / Plan
-
.
Subjective/Objective
Subjective Data
Date of Service: October 08, 2023
This is a 38-year-old woman who presented to [facility] on October 07, 2023 with fever and seizure.
This patient reports no complaints.
24h events: afebrile, hypertensive up to 152/107, tachypneic, intermittently tachycardic, saturating well on RA.
Received Ativan 1 mg at 04: 24 and 06:33 AM today.
blood cx-positive for Gr negative Bacilli.
CXR(10/07/2023)-Low lung volumes. No focal parenchymal consolidation to suggest pneumonia.Mild elevation of left hemidiaphragm with minor left basilar subsegmental atelectasis.
Routine EEG(10/07/2023)-diffuse excess beta activity without any no clear underlying posterior dominant rhythm.
CT head(10/07/2023) mild bifrontal atrophy
Labs: ETOH level(10/07/2023)-neg
ua-WBC 70-80, LE, nitrates-positive; ammonia, Mg, -normal
PMH: ETOH addiction
All: NKDA
ROS:Constitutional: Negative. Negative for chills, fever and unexpected weight change.
HENT: Negative for ear pain, hearing loss, tinnitus and trouble swallowing.
Eyes: Negative. Negative for photophobia, pain and visual disturbance.
Respiratory: Negative for cough, choking and shortness of breath.
Cardiovascular: Negative for chest pain, palpitations and leg swelling.
Gastrointestinal: Negative for abdominal pain and vomiting.
Endocrine: Negative. Negative for cold intolerance.
Genitourinary: Negative for dysuria, flank pain and urgency.
Musculoskeletal: Negative for back pain, gait problem, neck pain and neck stiffness.
Skin: Negative for rash.
Allergic/Immunologic: Negative. Negative for immunocompromised state.
Neurological: negative for headaches.
Psychiatric/Behavioral: Negative for behavioral problems, confusion and hallucinations.
General: Well developed. In no acute distress. Icteric
Cardio: Regular rate and rhythm without murmur. Extremities are without cyanosis or edema.
Neuro:
Mental Status: Alert, oriented to self, year, president, not month. Poor attention and comprehension. Follows simple requests consistently. No hemineglect. Nonfluent
Cranial Nerves: . Pupils are equally round and reactive to light. EOMs full. Visual garza full to confrontation. No ptosis. No nystagmus. V1-V3 intact to light touch and pinprick bilaterally, symmetric. Face symmetric. Normal hearing AU.
The palate elevated well. SCMs and traps 5/5. Tongue midline. No dysarthria.
Motor: Normal bulk and tone. No pronator or arm drift. Strength 5/5 throughout. No clonus.
Reflexes: 2+ throughout the upper extremities and knees. Plantar responses flexor bilaterally.
Sensory: Donna vibration at the toes
Coordination: No dysmetria or tremor. No myoclonus
Gait: deferred
Assessment and Plan:
I. Provoked seizure
II. SIRS
III. ETOH withdrawal
IV. Multifactorial encephalopathy (infectious, toxic)
V. Thrombocytopenia
-Continue CIWA
-Avoid medications known to lower seizure threshold(Cefepime)
-Please check TFTs, CPK
-Brain MRI wo zoran
-D/c Keppra
I personally reviewed all radiology and labs along with past medical records pertinent to current medical problems.
Thank you for allowing us to participate in the care of this patient. We will continue to follow. Please do not hesitate to contact us with any questions or concerns.
Objective Data
Vital Signs
Temp Pulse Resp BP Pulse Ox
37.8 C 96 35 142/92 97
10/08/23 07:25 10/08/23 08:00 10/08/23 08:00 10/08/23 07:00 10/08/23 07:00
Lab Results
10/08/23 03:41
10/08/23 03:41
PT 18.2 Sec (11.4-14.6) H 10/07/23 09:23
INR 1.53 10/07/23 09:23
APTT 38.3 Sec (23.4-35.0) H 10/07/23 09:23
Sodium 138 mmol/L (135-145) 10/08/23 03:41
Potassium 3.6 mmol/L (3.5-5.1) 10/08/23 03:41
BUN 6 mg/dl (7-17) L 10/08/23 03:41
Glucose 85 mg/dl (70-99) 10/08/23 03:41
Calcium 7.4 mg/dl (8.4-10.2) L 10/08/23 03:41
Phosphorus 3.4 mg/dl (2.5-4.5) 10/08/23 03:41
Ur Buprenorphine Negative (Negative) 10/07/23 11:52
Patient Allergies
No Known Allergies Allergy (Unverified 10/07/23 09:16)
Modified Adis Score (MRS)
-
MRS Score:
--- NOTE | 2023-10-08 10:12 | CM ---
CM following re: discharger planning.
Reviewed pt's chart, met with pt.
Pt is a 38 year old female, admitted with primary dx of Alcohol use disorder. Alcohol withdrawal. Toxic metabolic encephalopathy from Alc withdrawal.
Pt presents lying in a bed, drowsy, falling to sleep constantly during interview. 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 Pt admitted to heavy drinking, stated: 'I should not drink that much'.
Emotional support offered and provided. Pt reports she has been drinking with her for years, usually drinks half of bottle to one bottle of vodka daily. Pt expressed her agreement to meet with [facility], referral to [facility] made, spoke to [facility]
JENNIFER Stratton and she will meet with pt tomorrow when pt is more awake. Hope pt will agree with going to inpatient residential D&A rehab.
PCP: Brien Nichole.
D/C plan: home pt agrees with going to inpatient residential D&A rehabilitation treatment. [facility] following.
CM will follow with discharge plan updates as hospitalization progresses
[2023-10-08 12:33] LABS: HCG, Serum Qualitative Screen Negative
--- NOTE | 2023-10-08 12:51 | PTCARENOTE ---
Assessment remains unchanged < PT drowsy but arousable, incontinent of large amount of siomara urine, PT cleaned and repositioned for comfort, at bedside
--- NOTE | 2023-10-08 12:55 | W.PN.HOSP.TC ---
Today's Communication/Plan
-
stop cefepime and switch IV rocephin
mr brain
r/o etiology
etoh wd protocol
ID eval
Assessment / Plan
Assessment / Plan
#Daily Alcohol use disorder
#Acute Alcohol withdrawal
#Toxic metabolic encephalopathy from Alc withdrawal and sepsis
-Patient drinks half to 1 bottle of vodka every day.� No previous history of withdrawal
-Last reported drink on 10/05 evening.
-Patient tachycardic/delirious/seizures, likely with alcohol withdrawal and started on Precedex drip.
-MSAS/Ativan ordered
-Continue wtih phenobarb protocol regimen.
-If worsening of withdrawal symptoms consider standing ativan
-Cont with ICU level of care
-CT head negative for acute pathology.
-start diet once improvement in mentation. Cont IVF.
-Electronic Court Recorder on board.
#Sepsis from e.coli UTI likely leading to e.coli bacteremia
#Lactic acidosis 2/2 above
-Tachycardic/febrile/Mild leukocytosis
-UCX with e.coli
-Blood culture positive
-Avoid cefepime in setting seizures/encephalopathy
-switch to Rocephin
-Check imaging r/o etiology.
-ID consult
#Liver cirrhosis likley 2/2 alcohol abuse
#Jaundice
#Coagulopathy
#Thrombocytopenia
-Abdominal ultrasound showing microlobulated liver border suggestive of cirrhotic morphology
-No previous diagnosis of liver cirrhosis
-Have associated thrombocytopenia/jaundice/transaminitis/coagulopathy
-defer prednisolone to GI.
-NH3 wnl . Hep serology pending
-GI consulted to follow with new dx of liver cirrhosis
#Provoked Seizure episode
-Likely alcohol use and alcohol withdrawal related
-CT head within normal limit
-Keppra stopped.
-Plan for MRI brain w/o contrast
-neuro on board.
#Hypomag/Hypophos/Hypokalemia
-replete/monitor
DVT PPX -lovenox
Full code
d/w with hydraulic press in operator
d/w with patient spouse and father at bedside in details.
Total Critical Care Time 40 minutes. I was immediately available to the patient and staff. I personally examined, reviewed labs, diagnostic images/reports, interpretations, treatment plans, discussed patient care with other providers and family
or caregivers (if patient is unable to make decisions), entered orders as appropriate and documented the medical record.
Anticipated Discharge: > 48 hours
Subjective/Interval History
-
Date of Service: October 08, 2023
sleeping comfortably
Received increase dose of ativan overnight
on precedex gtt
Objective Data
-
Labs:
Laboratory Results
10/08/23
03:41
WBC 5.4
Hgb 13.0
Hct 38.3
Plt Count 56 L D
Sodium 138
Potassium 3.6
Chloride 108 H
Carbon Dioxide 24
BUN 6 L
Creatinine 0.5 L
Glucose 85
Calcium 7.4 L
Total Bilirubin 5.1 H
AST 211 H
ALT 57 H
Alkaline Phosphatase 209 H
Vital Signs:
Vital Signs
Temp Pulse Resp BP Pulse Ox
100.2 F 96 35 142/92 97
10/08/23 11:30 10/08/23 08:00 10/08/23 08:00 10/08/23 07:00 10/08/23 07:00
I&O
10/07/23 10/08/23 10/09/23
06:59 06:59 06:59
Intake Total 1969 / 2073.4 626.4 / 626.4
Output Total 100 / 100
Balance 1870 / 1974.4 626.4 / 626.4
Physical Exam
-
General: Well Developed and No Apparent Distress
HEENT: Normocephalic, Atraumatic and Moist Mucous Membranes
Respiratory: Clear to Auscultation
Cardiac: Regular Rhythm and S1/S2; Negative Murmur, Rub or Gallop
GI: Soft, Nontender, Nondistended and Normal Bowel Sounds; Negative Organomegaly
Rectal: Deferred by Provider
Musculoskeletal: No Clubbing, No Cyanosis and No Edema
Skin: Negative Rash
Psych: Calm
[2023-10-08 13:41] LABS: Folate 19.7 ng/ml (2.76-20); Vitamin B12 831 pg/ml (239-931)
--- NOTE | 2023-10-08 15:21 | CON.ID ---
Consultation
-
Date/Time Consultation Requested: 10/08/2023 08:31
Date/Time Consultation Performed: 10/08/2023 1514
Requesting Provider: Dr. Dudley
Performing Provider: Dr. Luna
Reason for Consultation: Bacteremia
Chief Complaint / Past History
History of Present Illness
Li Estrada is a 38-year-old female being evaluated at the request of Dr. Dudley in regards to bacteremia. History is obtained from chart review, along with patient interview. The patient has a past medical history significant for alcohol use
disorder and obesity who presented to [facility] on 10/07/2023 secondary to seizures, along with noted jaundice and fever.
EMS records state that the patient had been experiencing nausea, vomiting and diarrhea for approximately 2 days along with a decreased appetite. On the morning of admission the woke up to hear a loud crash in the master bedroom and found
his on her knees slumped forward on the toilet 'convulsing'. was able to somehow assist his back to bed where the EMS team found her.
Workup in the emergency room included blood cultures, which have now been found to be positive for E. coli. The patient was found to have a leukocytosis at admission, along with marked transaminitis.
The patient admits to nausea and vomiting along with loose stool in the days prior to admission. She admits to some low back pain which she reports is in the middle and not along the flanks. It has improved since admission. She denies any recent
dysuria or hematuria. She does recall fevers prior to admission, along with chills and hot flashes. She denies any sick contacts. She denies any recent travel. She does eat out at restaurants, although not recently.
Past History
Past Medical History: None
Additional Past Surgical History:
Ectopic
Allergy History:
No Known Allergies Allergy (Unverified 10/07/23 09:16)
Medications Reviewed: Yes
Current Antibiotics:
Rocephin 2 g IV every 24 hours
Social History
Tobacco: Non-Smoker
Alcohol: Daily
Drug: None
Personal:
Living: With Family
Employment: Employed
Family History
Family History: Not Pertinent
Review of Systems
Vital Signs
Temp Pulse Resp BP Pulse Ox
100.2 F 77 42 123/78 97
10/08/23 11:30 10/08/23 13:00 10/08/23 13:00 10/08/23 13:00 10/08/23 07:00
Physical Exam
Physical Exam
Constitutional: No Acute Distress, Comfortable and Non-toxic
Eyes: No Conjunctival Hemorrhage and Sclera Anicteric
Oral: No Thrush and No Ulcers
Cardiovascular: Regular Rate and S1/S2; Negative S3/S4
Pulmonary: Clear; Negative Wheezes, Rales or Rhonchi
Gastrointestinal: Soft, Non Tender, Non Distended, Normal Bowel Sounds, No Rebound and No Guarding
Genito-Urinary: Negative [place], Suprapubic Tenderness or CVA Tenderness
Extremities: Negative Edema, Clubbing, Cyanosis or Erythema
Neurological: Awake and Alert
Psychological: Calm
Lab / Diagnostic Study Results
10/08/23 03:41
10/08/23 03:41
Abs Immat Gran (auto) 0.2 10^3/uL (0-0.05) H 10/07/23 09:23
Absolute Neuts (auto) 8.8 10^3/uL (1.4-6.5) H 10/07/23 09:23
Absolute Lymphs (auto) 2.1 10^3/uL (1.2-3.4) 10/07/23 09:23
Absolute Monos (auto) 0.7 10^3/uL (0.1-0.6) H 10/07/23 09:23
Absolute Basos (auto) 0.1 10^3/uL (0-0.2) 10/07/23 09:23
Immature Gran % 1.3 % (0-0.5) H 10/07/23 09:23
Neutrophils % 74.6 % (42.2-75.2) 10/07/23 09:23
Lymphocytes % 17.7 % (20.5-51.1) L 10/07/23 09:23
Monocytes % 5.8 % (1.7-9.3) 10/07/23 09:23
Eosinophils % 0.1 % (0-6) 10/07/23 09:23
Basophils % 0.5 % (0-2) 10/07/23 09:23
PT 18.2 Sec (11.4-14.6) H 10/07/23 09:23
INR 1.53 10/07/23 09:23
Lactic Acid Cancelled 10/08/23 04:03
Ur Squamous Epith Cells 0-2 /LPF (Few) 10/07/23 10:48
Microbiology Results
Micro:
10/07/23 09:26 Blood Culture - Preliminary
Blood/Venous Escherichia coli
Gram Stain - Final
10/07/23 10:48 Urine Culture - Preliminary
Urine Escherichia coli
10/07/23 09:23 Blood Culture - Preliminary
Blood/Venous Positive culture in progress
Gram Stain - Final
10/07/23 09:26 Influenza Types A & B (AMAN) - Final
Nasal Swab Negative for Influenza A & B, NAAT
Negative results must be combined with clinical observations
and patient history.
Nucleic Acid Amplification test (NAAT)performed on the
[employer] platform.
Imaging:
10/08/2023 CT abdomen/pelvis without contrast: Urinary bladder wall is thickened suggestive of cystitis. No nephrolithiasis or hydronephrosis noted. No perinephric stranding. Liver is diffusely heterogeneous in attenuation consistent with diffuse
fatty infiltration. Liver is enlarged with nodular contour suggestive of cirrhosis. Splenomegaly is suggestive of portal hypertension. Please see full dictation for additional detail.
Assessment / Plan
Bacteremia with E. coli
Suspected complicated urinary tract infection
Leukocytosis
Thrombocytopenia
Elevated bilirubin
Transaminitis
Seizure
Suspected acute alcohol withdrawal
Recommendations:
Continue with empiric ceftriaxone for the present.
Repeat blood cultures to assess clearance.
Monitor white count and temperature curve.
Await further susceptibility data to guide antimicrobial selection and de-escalation.
[2023-10-08] MEDS: ROCEPHIN 2000 MG IV (16:02)
[2023-10-08] MEDS: STERILE WATER FOR INJECTION 20 ML IV (16:02)
--- NOTE | 2023-10-08 16:58 | PTCARENOTE ---
PT had CT head, right tragus earring unable to be removed, notified MRI, they stated she should be fine with it, PT completed MRI without issue returned to room, Precedex continues at 0.3 mcg/min, NSS @ 100 ml/hr, at bedside
[2023-10-08 17:12] LABS: TSH Reflex To Free T4 4.44 uIU/ml (0.47-4.68)
[2023-10-08 18:51] LABS: Hepatitis B Surface Antigen Negative (Negative)
[2023-10-08 19:08] LABS: Hepatitis B Surface Antibody Positive; Hepatitis C Antibody Negative (Negative)
--- NOTE | 2023-10-08 22:39 | PTCARENOTE ---
recieved pt from [facility] RN, assessments completed. at bedside, patient is restless and shows s/s of increased anxiety. gave pt bedbath to calm / comfort her, also used shower cap to wash hair. brushed pts hair (until she became
more agitated with him) then i finished.
patient brushed teeth and washed face, ecouraged her to do as much for herself as possible.
IS brought into patients room , patient has short shallow breaths and not pulling much volume. patient educated as was her , on how to use, patient pullng 750 with IS. patient just needs cueing regarding taking deep breaths.
phenobarb protocol in place, no need for prn ativan, patients parents arrived at bedside, no issues noted there.
patient resting comfortably, and family went home, call andrade with in reach at all times.
[2023-10-09] VITALS (7 sets, daily range): BP systolic 104–159; BP diastolic 72–96; BMI 33.3
[2023-10-09] MEDS: NSS 1000 IV ×2 (00:49→19:54)
[2023-10-09] MEDS: THIAMINE INJECTION 200 MG IV ×3 (00:51→16:43)
[2023-10-09 04:24] LABS: Hematocrit 35.9 % (37.0-47.0); Hemoglobin 12.2 g/dL (12.0-16.0); Mean Corpuscular Hgb 31.4 pg (27.0-31.0); Mean Corpuscular Volume 92.5 fL (81.0-99.0); Mean Platelet Volume 11.8 fL (7.4-10.4); Platelet Count 54 10^3/uL (130-400); Red Blood Cell Count 3.88 10^6/uL (4.20-5.40); Red Cell Dist. Width 17.4 % (11.5-14.5); White Blood Cell Count 4.6 10^3/uL (4.8-10.8)
[2023-10-09 04:28] LABS: Ammonia 45 umol/L (9-30)
[2023-10-09 04:35] LABS: INR 1.93; PT 21.9 Sec (11.4-14.6)
[2023-10-09 04:53] LABS: ALT (SGPT) 53 U/L (0-35); AST (SGOT) 261 U/L (14-36); Albumin 2.8 g/dl (3.5-5.0); Alkaline Phosphatase 151 U/L (38-126); Blood Urea Nitrogen 10 mg/dl (7-17); Calcium 7.3 mg/dl (8.4-10.2); Carbon Dioxide 18 mmol/L (22-30); Chloride 108 mmol/L (98-107); Estimated Creatinine Clearance > 125 ml/min; Glucose 78 mg/dl (70-99); Magnesium 2.2 mg/dl (1.6-2.3); Phosphorus 2.5 mg/dl (2.5-4.5); Potassium 3.9 mmol/L (3.5-5.1); Sodium 139 mmol/L (135-145); Total Bilirubin 5.2 mg/dl (0.2-1.3); Total Protein 6.5 g/dl (6.3-8.2); eGFR > 60.00
[2023-10-09 05:01] LABS: IgG 1435 mg/dl (700-1600); IgM 329 mg/dl (40-230)
[2023-10-09 05:15] LABS: Vitamin D, 25-OH*** 35.2 ng/mL (30-80)
[2023-10-09 05:16] LABS: IgA 853 mg/dl (70-400)
[2023-10-09 05:37] LABS: Amylase 183 U/L (30-110); GGTP 947 U/L (12-43); LDH 570 U/L (120-246); Lipase 1485 U/L (23-300)
--- NOTE | 2023-10-09 06:19 | PTCARENOTE ---
patient remains calm, sleeping well through night, no c/o pain or discomfort. no nausea/vomiting, no abdominal pain.
patient continues to be jaundice, urine is dark siomara and foul smelling. patient remains incontinent.
precedex and ivf running with no issue, labs sent in am, no new orders.
[2023-10-09] MEDS: LR 1000 IV (07:53)
[2023-10-09] MEDS: PROTONIX IV 40 MG IV (07:55)
[2023-10-09] MEDS: PHENOBARBITAL 97.5 MG IV (07:55)
[2023-10-09] MEDS: NSS (PRESERVATIVE FREE) 10 ML IV (07:55)
--- NOTE | 2023-10-09 08:00 | PTCARENOTE ---
PT received in bed, drowsy but arousable, more awake and alert than yesterday, AAOx3 PT can be restless at times, NSR, + pulses trace edema, room air, shallow breathes, poor effort, fine crackles bibasilar, abdomen soft NT +BS, scattered bruises
notes, Left FA and Right INT flushed and patent, Precedex @ 0.3 mg/min, PT advanced to clear liquid diet, if tolerated we can advance
[2023-10-09] MEDS: PRECEDEX 100 IV (08:05)
[2023-10-09] MEDS: FOLVITE PO (08:11)
--- NOTE | 2023-10-09 08:59 | W.PN.GI.CBS2 ---
Addendum entered and electronically signed by Sebastian Jacob MD 10/09/23 18:54:
I saw and examined the patient.
The PA's note was reviewed and I agree with the note.
Comment:
Admitted with alcoholic hepatitis and acute pancreatitis. Pt has h/o alcohol abuse, has been drinking a bottle of vodka in 1-2 days, 3-4 days a week, for few years. DF on admission was 30, today increased to 46. Pt also has E. coli UTI with E.
coli bacteremia as she grew this from blooc cx. Her case was discussed with emergency dispatcher at [facility] (Dr. Faraz Watkins) - would prefer to clear bacteremia before starting steroids (if repeat blood cx is -ve, then can start prednisolone 40 mg). Continue
with supportive mx. Will follow.
Addendum entered and electronically signed by LILLIANA Spears 10/09/23 09:31:
add iron studies
Addendum entered and electronically signed by LILLIANA Spears 10/09/23 09:30:
Pt denies tylenol use prior to admission tox screen neg but will check Acetaminophen level as not checked on admission
Addendum entered and electronically signed by LILLIANA Spears 10/09/23 09:25:
hepatitis B with immunity, hep C neg, Immunoglobulin A 853, G 1435, m 329, b hyroxybutrate 0.43 HIV, SLA, F actin, LKM, ceruloplasmin pending, repeat ammonia 45 but remains awake and alert will add lactulose daily
Original Note:
Today's Communication / Plan
-
etiology of elevated LFT's with elevated INR and thrombocytopenia related to ETOH hepatitis vs underlying cirrhosis with some decompensation with thrombocytopenia and elevated INR and ETOH pancreatitis
also concern for Ecoli UTI with bacteremia
DF on admission 30.3 with control of 13 no role for steroids as <32 and concern for concurrent infectious process on admission -- repeat DF today 46 with rise in INR and bili will cont to hold steroid but likely will need when UTI adequately treated
cont to trend labs with daily INR
ETOH abstinence-- social work for resources
avoid hepatotoxic medication--- I reviewed with pharmacy to check med for any changes with worsening liver function
repeat ammonia normal mental status remains intact
cont management for withdrawal per ICU team
OP GI follow up with concern for underlying cirrhosis
remains on Miralax daily
will add clear diet and if tolerating low fat later today
tiger texted Dr. Jacob, hospitalist and computer tape librarian with update
Assessment / Plan
-
Pt is a 38yo with hx ETOH abuse, obesity with noted seizure prior to admission. On admission she is note with WBC 11,700, platelet 102 with drop to 56, INR 1.53., lactate 7.5, libertad 6.4, AST 316, ALT 101., alk phos 318 and ammonia of 32. Lipase 1485
after admission US with changes of HM with fatty infiltration ans possible cirrhosis, distended GB with sludge.
-ETOH withdrawal seizure
-ETOH abuse
-elevated LFT's with concern for ETOH hepatitis with possible cirrhosis
-elevated lipase with concern for component ETOH pancreatitis
-Ecoli UTI with bacteremia
-mild ammonia elevation
-Elevated INR related to liver decompensation
-thrombocytopenia related to liver decompensation
-elevated lactate
-obesity
PLAN:
etiology of elevated LFT's with elevated INR and thrombocytopenia related to ETOH hepatitis vs underlying cirrhosis with some decompensation with thrombocytopenia and elevated INR and ETOH pancreatitis
also concern for Ecoli UTI with bacteremia
DF on admission 30.3 with control of 13 no role for steroids as <32 and concern for concurrent infectious process on admission -- repeat DF today 46 with rise in INR and bili will cont to hold steroid but likely will need when UTI adequately treated
cont to trend labs with daily INR
ETOH abstinence-- social work for resources
avoid hepatotoxic medication--- I reviewed with pharmacy to check med for any changes with worsening liver function
repeat ammonia normal mental status remains intact
cont management for withdrawal per ICU team
OP GI follow up with concern for underlying cirrhosis
remains on Miralax daily
will add clear diet and if tolerating low fat later today
tiger texted Dr. Jacob, hospitalist and computer tape librarian with update
Subjective
Subjective
Date of Service: October 09, 2023
no abdominal pain, nausea, vomiting, or diarrhea feeling ok
Objective
Data Reviewed
Laboratory Data:
Laboratory Results
10/09/23 03:59
10/09/23 03:58
Laboratory Results
PT 21.9 Sec (11.4-14.6) H 10/09/23 03:57
INR 1.93 10/09/23 03:57
APTT 38.3 Sec (23.4-35.0) H 10/07/23 09:23
Phosphorus 2.5 mg/dl (2.5-4.5) 10/09/23 03:58
Magnesium 2.2 mg/dl (1.6-2.3) 10/09/23 03:58
Total Bilirubin 5.2 mg/dl (0.2-1.3) H 10/09/23 03:58
AST 261 U/L (14-36) H 10/09/23 03:58
ALT 53 U/L (0-35) H 10/09/23 03:58
Alkaline Phosphatase 151 U/L (38-126) H 10/09/23 03:58
Amylase 183 U/L (30-110) H 10/09/23 03:58
Lipase 1485 U/L (23-300) H* 10/09/23 03:58
Vital Signs and I&O:
Vital Signs
Temp Pulse Resp BP Pulse Ox
98.6 F 69 25 159/96 94
10/09/23 08:15 10/09/23 08:02 10/09/23 08:02 10/09/23 08:02 10/08/23 20:00
I&O
10/08/23 10/09/23 10/10/23
06:59 06:59 06:59
Intake Total 1969.4 2562.6 / 1.4 215. / 215.4
Output Total 100 / 100
Balance 1869.4 2562.6 / 1.4 215. / 215.4
Physical Exam
Physical Exam
HEENT: Other (jaundice)
Cardiology: Normal Sinus Rhythm
Pulmonary: Clear
GI: Soft, Distended (minimal) and Non Tender
Extremities: No Edema
Neuro: Other (more awake this am slight tremor)
--- NOTE | 2023-10-09 09:02 | W.PN.INTV ---
Today's Communication / Plan
Recommendations
Wean off precedex gtt and Abx
Acute liver failure workup pending including autoimmune serologies, although sepsis in setting of chronic alcoholic liver disease is likely explanation for her clinical picture + labs
Neurochecks q1hr
Aspiration precautions
Hold of on DVT chemical ppx until plt count stabilizes and she has no evidence of bleeding
Small amount of ascitic fluid --> if she spikes fever then will see if enough fluid for paracentesis
Low threshold to be intubated
GI is assisting with possible TRX to [facility]
Assessment
-
38-year-old male with a history of alcohol use disorder, obesity and was brought in by family after patient had a seizure at home-director strategic planning consulted for seizures/alcohol withdrawal/critical care management 10/07/2023.
Assessment
Alcohol withdrawal/DTs/seizures-last drink 10/05/2023 evening - currently on precedex gtt
Alcoholic pancreatitis
Seizure episode likely withdrawal seizure
E. coli bacteremia - unknown source although suspect abdomen; initially suspected source to be UTI but her UCx is growing Kluyvera ascorbata
AMS likely due to TME in setting of acute liver failure; acute hepatitis also on differential
Complicated UTI
Alcoholic liver disease with suspected liver cirrhosis
Thrombocytopenia
Elevated LFTs, TCP & coagulopathy - likely related to acute liver failure in setting of sepsis with underlying suspected cirrhosis with alcohol use disorder; no RUQ or epigastric abd pain so I question if this is an acute alcoholic hepatitis
Leukocytosis
Lactic acidosis -now resolved
Metabolic acidosis with normal AG
At risk for sbstructive sleep apnea
AOCD (elevated ferritin with preserved TIBC and low Fe-Saturation)
Conditions present prior to admission:
Alcohol use disorder.
Cirrhosis suspected
[id number]
Plan
Continue Precedex drip and wean as tolerated
Phenobarbital DC'd as this can cause rise in LFTs ---> continue prn ativan instead for EtOH withdrawal Sx
Supplemental oxygen as needed
Aspiration precautions
Incentive spirometry
Head of bed elevation
Follow MSAS
Supplement glucose and thiamine to prevent Wernicke's encephalopathy
Supplement multivitamins and folate
Replete K>3.5, Mg>1.8, PO4>3
Given her worsening LFTs, I DC'd her phenobarb and continue ativan
Alcohol cessation counseling-Dr. Esparza asked if she thought about quitting-she replied 'yes probably cutting down'-Dr. Esparza told her she needs to quit completely as she has cirrhosis and she is dying-she will think about it
Consider psychiatry evaluation
Consider rehabilitation
On 10/08, I changed cefepime to ceftriaxone given cefepime's tendency to lower seizure threshold, and follow-up urine culture sensitivities--> ID now changing ABx back to cefepime
Maintain MAP>65
Considering she continues to spike fevers, I will consult IR for paracentesis
Trend LFTs including lipase, INR, LDH and GGT
GI on board --> recs appreciated
Considering acute liver failure is on the differential, follow-up autoimmune markers including anti-smooth muscle antibody, soluble liver antigen antibody; viral hepatitis serologies are negative (HBsAb positive indicating immunization Hz); follow
up ceruloplasmin
If LFTs continue to worsen then would re-check RUQ with doppler to rule out veno-occlusive disease
Follow up phosphatidylethanol level (send-out)
Trend ammonia level
TG level 157 -> continue to monitor with infrequent TG levels
May be better taken care of at a tertiary care center with liver transplant capabilities
Seizure precautions
Neurology on board --> recs appreciated
DVT prophylaxis-mechanical (hold off on chemical ppx for now given the dropping plt count and coagulopathy)
GI prophylaxis
Early nutrition
Early mobilization
Outpatient sleep disordered breathing/obstructive sleep apnea follow-up
Critical care statement: A total of 38 minutes of critical care time was provided for this patient today. This includes management of unstable vital signs, treatment for and prevention of alcohol withdrawal, evaluation of the patient at bedside,
reviewing the patient's pertinent medical records including radiographs, delirium tremens prophylaxis, sepsis management, microbiology, laboratory evaluations, and discussion with primary team, consultants, pharmacy, nutrition, physical therapy,
case management, charge nurse, critical care nursing, and respiratory therapy.
Diagnostic data:
Chest x-ray 10/07/2023-low lung volumes, no focal parenchymal consolidation to suggest pneumonia, mildly elevated left hemidiaphragm with basilar subsegmental atelectasis
Abdominal ultrasound 10/07/2023-hepatomegaly with diffuse fatty infiltration and microlobulated border suggestive of cirrhosis, distended gallbladder without cholelithiasis, gallbladder sludge versus incidental artifact, negative Montesinos sign
CT head 10/07/2023-no acute intracranial abnormalities
CT A/P 10-08-2023:
1. Urinary bladder wall is thickened, with adjacent inflammatory change, suggestive of cystitis. No nephrolithiasis or hydronephrosis on either side. No significant perinephric stranding on either side.
2. Liver is of diffusely heterogeneous attenuation, overall attenuation is similar to the contents of the gallbladder, consistent with diffuse fatty infiltration. Given heterogeneous attenuation pattern, hepatitis should also be considered. Liver is
enlarged, measuring 26.3 cm in diameter.
3. Nodular contour of the liver, suggestive of cirrhosis. Splenomegaly and multiple splenorenal collaterals, suggestive of portal hypertension.. Small amount of pelvic free fluid, which may be physiologic, but may also represent early ascites. No
fluid seen adjacent to the liver or spleen.
MRI Brain 10-09-2023:
No definite acute process. There is no new area of abnormal signal intensity on the diffusion-weighted images.
No change in the 3 mm focus of increased T2 signal intensity in the deep white matter posterior right parietal region seen on the exam the day before. Additional small punctate focus in the right frontal lobe. These areas do not enhance.
Minimal increase in T2 signal intensity in the periaqueductal region, thalami and mamillary bodies, with faint enhancement of the thalami bilaterally question Wernicke encephalopathy.
Subjective Dataa
Subjective Data
Date of Service:
Date of Service: October 09, 2023
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
Subjective:
Seen this AM. No acute events reported from overnight. On precedex at 0.3mcg/kg/hr. She is lethargic but is awake and oriented. LFTs worsening.
Review of Systems
General: Other (12 point ROS performed and is negative unless mentioned above.)
Objective Data
Data Reviewed
Vital Signs / I&O / Oxygen:
Vital Signs
Temp Pulse Resp BP Pulse Ox
98.6 F 69 25 159/96 94
10/09/23 08:15 10/09/23 08:02 10/09/23 08:02 10/09/23 08:02 10/09/23 09:00
Intake and Output
10/08/23 10/09/23 10/10/23
06:59 06:59 06:59
Intake Total 1970 / 2073.4 2562.6 / 2671.4 322.0 / 322.0
Output Total 100 / 100
Balance 1870 / 1974.4 2562.6 / 2671.4 322.0 / 322.0
SaO2 94
Nasal Cannula flow liters per 2
minute
Physical Exam
General: Comfortable
HEENT: Normocephalic and Other (Icterus bilaterally)
Cardiovascular: S1-S2 and Peripheral Edema (negative)
Respiratory: Clear, Wheeze (negative), Crackles (negative), Rhonchi (negative) and Non-Labored Respirations
GI: Soft, Non Distended, Non Tender and Normal Bowel Sounds
Neurology: Awake, Tremors (negative) and Lethargic
Skin: Warm and Dry
Labs/Micro/Reports
Lab Data
10/09/23 03:59
10/09/23 03:58
Laboratory Results
10/09/23
03:57
PT 21.9 H
INR 1.93
Microbiology
10/07/23 10:48 Urine Urine Culture - Final
Kluyvera ascorbata
10/07/23 09:23 Blood/Venous Blood Culture - Preliminary
Escherichia coli
10/07/23 09:23 Blood/Venous Gram Stain - Final
10/07/23 09:26 Blood/Venous Blood Culture - Preliminary
Escherichia coli
10/07/23 09:26 Blood/Venous Gram Stain - Final
10/07/23 09:26 Nasal Swab Influenza Types A & B (AMAN) - Final
Negative for Influenza A & B, NAAT
Negative results must be combined with clinical observations
and patient history.
Nucleic Acid Amplification test (NAAT)performed on the
[employer] platform.
[2023-10-09 10:07] LABS: Acetaminophen < 10 ug/ml (10-30); Iron 36 ug/dl (37-170)
[2023-10-09 10:16] LABS: Percent Saturation 13 % (20-50); Total Iron Binding Capacity 266 ug/dl (265-497)
--- NOTE | 2023-10-09 10:28 | W.PN.NEURO.1 ---
Today's Communication / Plan
-
.
Subjective/Objective
Subjective Data
Date of Service: October 09, 2023
24h events: Transient hypotension down to 46/35, febrile up to 39.2 C.
This patient reports no headache, change in vision, strength or sensory deficits.
Started on ceftriaxone, continues to be on Precedex and phenobarbital.
Brain MRI without zoran-Single focus of 3 mm T2/FLAIR hyperintense signal in the subcortical white matter of the right parietal lobe with no associated edema or DWI abnormalities.
Labs: lipase-1485, normal TFTs, Pl-54.
PMH: ETOH addiction
All: NKDA
ROS:Constitutional: Negative. Negative for chills, fever and unexpected weight change.
HENT: Negative for ear pain, hearing loss, tinnitus and trouble swallowing.
Eyes: Negative. Negative for photophobia, pain and visual disturbance.
Respiratory: Negative for cough, choking and shortness of breath.
Cardiovascular: Negative for chest pain, palpitations and leg swelling.
Gastrointestinal: Negative for abdominal pain and vomiting.
Endocrine: Negative. Negative for cold intolerance.
Genitourinary: Negative for dysuria, flank pain and urgency.
Musculoskeletal: Negative for back pain, gait problem, neck pain and neck stiffness.
Skin: Negative for rash.
Allergic/Immunologic: Negative. Negative for immunocompromised state.
Neurological: negative for headaches.
Psychiatric/Behavioral: Negative for behavioral problems, confusion and hallucinations.
�
�
General: Well developed. In no acute distress. Icteric
Cardio: Regular rate and rhythm without murmur. Extremities are without cyanosis or edema.
Neuro:
Mental Status: Alert, oriented to self, year, month.� Impaired attention(improved).� Follows simple requests consistently.� No hemineglect.� Nonfluent
Cranial Nerves: . Pupils are equally round and reactive to light.� EOMs full.� Visual garza full to confrontation.� No ptosis.� No nystagmus.� V1-V3 intact to light touch and pinprick bilaterally, symmetric.� Face symmetric.� Normal hearing AU.�
The palate elevated well.� SCMs and traps 5/5.� Tongue midline.� No dysarthria.
Motor:� � � � Normal bulk and tone.� No pronator or arm drift.� Strength 5/5 throughout. No clonus.
Coordination: No dysmetria or tremor. No myoclonus
Gait: � � � � � deferred
Assessment and Plan:
�
�I. Provoked seizure
II. Abnormal brain MRI
III. ETOH withdrawal
IV.� Multifactorial encephalopathy (infectious, toxic)
V. Thrombocytopenia
. E coli bacteremia
-Continue CIWA protocol
-Avoid medications known to lower seizure threshold(Cefepime)
-Repeat brain MRI with gadolinium
-OP neurology follow up in 2 weeks
�
I personally reviewed all radiology and labs along with past medical records pertinent to current medical problems.
�
Thank you for allowing us to participate in the care of this patient. Please do not hesitate to contact us with any questions or concerns.
�
Objective Data
Vital Signs
Temp Pulse Resp BP Pulse Ox
37.0 C 69 25 159/96 94
10/09/23 08:15 10/09/23 08:02 10/09/23 08:02 10/09/23 08:02 10/09/23 09:00
Lab Results
10/09/23 03:59
10/09/23 03:58
PT 21.9 Sec (11.4-14.6) H 10/09/23 03:57
INR 1.93 10/09/23 03:57
APTT 38.3 Sec (23.4-35.0) H 10/07/23 09:23
Sodium 139 mmol/L (135-145) 10/09/23 03:58
Potassium 3.9 mmol/L (3.5-5.1) 10/09/23 03:58
BUN 10 mg/dl (7-17) 10/09/23 03:58
Glucose 78 mg/dl (70-99) 10/09/23 03:58
Calcium 7.3 mg/dl (8.4-10.2) L 10/09/23 03:58
Phosphorus 2.5 mg/dl (2.5-4.5) 10/09/23 03:58
Vitamin B12 831 pg/ml (239-931) 10/08/23 12:13
Ur Buprenorphine Negative (Negative) 10/07/23 11:52
Patient Allergies
No Known Allergies Allergy (Unverified 10/07/23 09:16)
[2023-10-09] MEDS: DUPHALAC/CHRONULAC 20 GRAMS PO (10:35)
[2023-10-09] MEDS: FOLVITE 1 MG PO (10:35)
--- NOTE | 2023-10-09 11:35 | W.PN.UPDATE ---
Addendum entered and electronically signed by LILLIANA Spears 10/09/23 12:59:
Dr. Jacob spoke with Dr. Watkins at [facility]. Await clearance of blood cx and then consider steroids. If worsening number for transfer. Will add phosphatidyethanol level. spoke updated
Addendum entered and electronically signed by LILLIANA Spears 10/09/23 11:59:
verified with patient and spouse no other medication, only supplement were probiotics and hair/nail vitamin-biotin. Spouse does confirm consumption of large amount of ETOH prior to admission.
Original Note:
Update Note
Progress Note Update
reviewed with Dr. Jacob and ICU team. Plan to review case with [facility] for hepatology input. Pt is willing for transfer if needed with rise in DF overnight and concurrent infection. I updated patient, spouse and ICU team.
[2023-10-09 11:41] LABS: HDL Cholesterol 14 mg/dl; LDL Cholesterol, Calculated 96 mg/dl; Total Cholesterol 141 mg/dl (50-199); Triglyceride 157 mg/dl (10-149); Very Low Density Lipoprotein 31 mg/dl (0-30)
--- NOTE | 2023-10-09 11:41 | PTCARENOTE ---
PT assisted OOB to bathroom and and chair, set PT up to wash face and brush teeth, PT remained OOB for aprox. 30 mins, PT advanced to clear liquid diet, tolerated breakfast, call andrade in reach, bed in lowest position
--- NOTE | 2023-10-09 12:12 | W.PN.ID1 ---
Date of Service
Date of Service: October 09, 2023
Today's Communication
Continue antibiotics. Transition back to cefepime. See below�.
Assessment / Plan
Bacteremia with E. coli
Suspected complicated urinary tract infection
- Jagdisha ascorbata recovered.
Leukocytosis
Thrombocytopenia
Elevated bilirubin
Transaminitis
Seizure
Suspected acute alcohol withdrawal
Recommendations:
Full sensitivities of recovered isolates reviewed.
Transition back to cefepime to avoid any further stressors on the liver (ceftriaxone cleared via liver metabolism)
Following repeat blood cultures to assess clearance.
Monitor white count and temperature curve.
����������������������������������������������������������
Chief Complaint
-: UTI and Bacteremia
Subjective / Review of Systems
Patient seen and examined. Reports no specific complaints today. Denies fevers or chills. Denies cough. Denies abdominal pain. Denies dysuria.
Vital Signs / Physical Exam
Vital Signs
Vital Signs
Temp Pulse Resp BP Pulse Ox
98.1 F 87 30 149/87 94
10/09/23 12:09 10/09/23 11:00 10/09/23 11:00 10/09/23 10:00 10/09/23 09:00
Physical Exam
Constitutional: No Acute Distress, Comfortable and Non-toxic
Eyes: No Conjunctival Hemorrhage
Cardiovascular: S1/S2; Negative S3/S4
Pulmonary: Clear and Non Labored; Negative Wheezes or Rales
Gastrointestinal: Soft, Non Tender, Non Distended and Normal Bowel Sounds
Neurological: Awake, Alert and Oriented
Psychological: Calm
Objective Data
Lab Data
Lab Results
10/09/23 03:59
10/09/23 03:58
PT 21.9 Sec (11.4-14.6) H 10/09/23 03:57
INR 1.93 10/09/23 03:57
APTT 38.3 Sec (23.4-35.0) H 10/07/23 09:23
Estimated Creat Clear > 125 ml/min 10/09/23 03:58
Lactic Acid Cancelled 10/08/23 04:03
Total Bilirubin 5.2 mg/dl (0.2-1.3) H 10/09/23 03:58
GGT 947 U/L (12-43) H 10/09/23 03:58
AST 261 U/L (14-36) H 10/09/23 03:58
ALT 53 U/L (0-35) H 10/09/23 03:58
Alkaline Phosphatase 151 U/L (38-126) H 10/09/23 03:58
Amylase 183 U/L (30-110) H 10/09/23 03:58
Most recent labs reviewed.
Micro Results:
10/07/23 10:48 Urine Culture - Final
Urine Kluyvera ascorbata
10/07/23 09:23 Blood Culture - Preliminary
Blood/Venous Escherichia coli
Gram Stain - Final
10/07/23 09:26 Blood Culture - Preliminary
Blood/Venous Escherichia coli
Gram Stain - Final
10/08/23 17:25 Blood Culture - Pending
Blood/Venous
10/08/23 17:25 Blood Culture - Pending
Blood/Venous
10/07/23 09:26 Influenza Types A & B (AMAN) - Final
Nasal Swab Negative for Influenza A & B, NAAT
Negative results must be combined with clinical observations
and patient history.
Nucleic Acid Amplification test (NAAT)performed on the
[employer] platform.
Imaging:
10/08/2023 CT abdomen/pelvis without contrast: Urinary bladder wall is thickened suggestive of cystitis. No nephrolithiasis or hydronephrosis noted. No perinephric stranding. Liver is diffusely heterogeneous in attenuation consistent with diffuse
fatty infiltration. Liver is enlarged with nodular contour suggestive of cirrhosis. Splenomegaly is suggestive of portal hypertension. Please see full dictation for additional detail.
Care Review
Plan reviewed with: Physician (Critical Care, GI, Clinical pharmacist)
--- NOTE | 2023-10-09 13:09 | W.PN.HOSP.TC ---
Today's Communication/Plan
-
clears started
LR IVF
Await surveillance cultures
IV cefepime
Assessment / Plan
Assessment / Plan
#Daily Alcohol use disorder
#Acute Alcohol withdrawal
#Toxic metabolic encephalopathy from Alc withdrawal and sepsis
-Patient drinks half to 1 bottle of vodka every day.� No previous history of withdrawal
-Last reported drink on 10/05 evening.
-Patient tachycardic/delirious/seizures, likely with alcohol withdrawal and started on Precedex drip.
-MSAS/Ativan ordered
-s/p phenobarb protocol regimen due to elevated in LFTs and phenobarb discontinued.
-Cont with ICU level of care
-CT head negative for acute pathology.
-start diet once improvement in mentation. Cont IVF. Clears started
-MR brain single small focus of signal alteration in the subcortical white matter of the right parietal lobe, doubtful clinical significance. Otherwise normal MRI of the brain.
-Per neurology continue with CIWA protocol. Neurology recommending MRI with contrast today
-Medical Records Manager on board.
#Sepsis from kluyvera UTI and e.coli bacteremia
#Lactic acidosis 2/2 above
-Tachycardic/febrile/Mild leukocytosis
-Blood culture positive E.coli and surveillance culture in lab
-Avoid cefepime in setting seizures/encephalopathy
-Ceftriaxone discontinued started on cefepime by ID
-CT abdomen pelvis was negative for renal stone obstruction. No nephrolithiasis or hydronephrosis. No significant perinephric stranding.
-ID consult
#Liver cirrhosis likley 2/2 alcohol abuse
#Jaundice
#Coagulopathy
#Thrombocytopenia
-Abdominal ultrasound showing microlobulated liver border suggestive of cirrhotic morphology
-No previous diagnosis of liver cirrhosis
-Have associated thrombocytopenia/jaundice/transaminitis/coagulopathy
-defer prednisolone to GI.
-NH3 wnl . Hep serology non reactive.
-CT abdomen pelvis showed Liver is of diffusely heterogeneous attenuation, overall attenuation is similar to the contents of the gallbladder, consistent with diffuse fatty infiltration. Given heterogeneous attenuation pattern, hepatitis should also
be considered. Liver is enlarged, measuring 26.3 cm in diameter. Nodular contour of the liver, suggestive of cirrhosis. Splenomegaly and multiple splenorenal collaterals, suggestive of portal hypertension. Small amount of pelvic free fluid, which
may be physiologic, but may also represent early ascites. No fluid seen adjacent to the liver or spleen.
-INR worse. Bili high. Worsening DF.
-GI following and d/w with Oscar- recommending possible start steroids if surveillance cultures negative
#Provoked Seizure episode
-Likely alcohol use and alcohol withdrawal related
-CT head within normal limit
-Keppra stopped.
-Plan for MRI brain w/ contrast
-neuro on board.
#Hypomag/Hypophos/Hypokalemia
-replete/monitor
#Non anion gap acidosis likely 2/2 NS
-Agree with LR
#Hypocalcemia
-corrected ca with albumin wnl.
DVT PPX -lovenox
Full code
d/w with GI and Medical Records Manager
Anticipated Discharge: > 48 hours
Subjective/Interval History
-
Date of Service: October 09, 2023
More awake today
answering questions
aox3
tremors noted but not agitated
Objective Data
-
Labs:
Laboratory Results
10/09/23 10/09/23 10/09/23
03:57 03:58 03:59
WBC 4.6 L
Hgb 12.2
Hct 35.9 L
Plt Count 54 L
PT 21.9 H
INR 1.93
Sodium 139
Potassium 3.9
Chloride 108 H
Carbon Dioxide 18 L
BUN 10
Creatinine 0.4 L
Glucose 78
Calcium 7.3 L
Total Bilirubin 5.2 H
AST 261 H
ALT 53 H
Alkaline Phosphatase 151 H
Vital Signs:
Vital Signs
Temp Pulse Resp BP Pulse Ox
98.1 F 87 30 149/87 94
10/09/23 12:09 10/09/23 11:00 10/09/23 11:00 10/09/23 10:00 10/09/23 09:00
I&O
10/08/23 10/09/23 10/10/23
06:59 06:59 06:59
Intake Total 1970 / 4.4 2562.6 / 2671.4 535.2 / 535.2
Output Total 100 / 100
Balance 1870 / 1974.4 2562.6 / 2671.4 535.2 / 535.2
Physical Exam
-
General: Well Developed and No Apparent Distress
HEENT: Normocephalic, Atraumatic and Moist Mucous Membranes
Respiratory: Clear to Auscultation
Cardiac: Regular Rhythm and S1/S2; Negative Murmur, Rub or Gallop
GI: Soft, Nontender, Nondistended and Normal Bowel Sounds; Negative Organomegaly
Rectal: Deferred by Provider
Musculoskeletal: No Clubbing, No Cyanosis and No Edema
Skin: Warm and Jaundice; Negative Rash
Neuro: Awake, Alert, Oriented, No Motor Deficits and Tremors
Psych: Calm
Data Reviewed
-
Total Time Spent with Patient (in minutes): 55
[2023-10-09 14:22] LABS: HIV Combo Negative (Negative)
[2023-10-09] MEDS: MAXIPIME 2000 MG IV (14:29)
[2023-10-09] MEDS: STERILE WATER FOR INJECTION 10 ML IV (14:29)
--- NOTE | 2023-10-09 14:52 | PTCARENOTE ---
PT transferred to MRI (brain), returned after, PT to continue clears for lunch then advance to low fat diet, assessment remains unchanged, call andrade in reach, bed in lowest position
--- NOTE | 2023-10-09 15:14 | PN.CDI ---
CDI
- -
CDI:
Physician Documentation Request
Admit Date: 10/07/23 12:37
Dear Doctor Octavia,
Patient hospitalized for acute alcohol withdrawal, sepsis from UTI
Hospitalist states 'Alcohol use disorder'
GI states 'ETOH abuse '
Patient has had seizures and a MSAS of 15 at times.
Pt was on Precedex gtt. and has received Ativan.
If possible, please specify the pattern of use, include all that apply:
- Use, with or without abuse and/or dependence
- Abuse with or without dependence
- Dependence
- Other
Use of terms such as suspected, likely, concern for, or probable (associated with a specific diagnosis that is being evaluated, monitored, or treated as if it exists) are acceptable and can be coded in the inpatient setting, when documented at the
time of discharge.
Thank you,
Tabatha Moreno RN, BSN
CDI Specialist
tiger text
Please use your independent medical judgment in providing your response.
--- NOTE | 2023-10-09 16:58 | PTCARENOTE ---
PT OOB x2 hours, needs assistance, shaky and unsteady, bed alarm and chair alarm on, call andrade in reach, bed in lowest position
[2023-10-09] MEDS: PRELONE 40 MG PO (19:53)
--- NOTE | 2023-10-09 20:37 | PTCARENOTE ---
received from previous shift. family at bedside. pt alert and oriented x3, pleasant and cooperative. currently on room air, lungs clear. oob ambulaing with 1 assist to the bathroom. NS on the monitor. NSS at 125
[2023-10-10] VITALS (10 sets, daily range): BP systolic 125–150; BP diastolic 80–103; BMI 33.8
[2023-10-10] MEDS: THIAMINE INJECTION 200 MG IV ×2 (00:08→07:57)
[2023-10-10] MEDS: PRECEDEX 100 IV (01:27)
[2023-10-10] MEDS: STERILE WATER FOR INJECTION 10 ML IV ×2 (01:46→14:13)
[2023-10-10] MEDS: MAXIPIME 2000 MG IV ×2 (01:47→14:13)
--- NOTE | 2023-10-10 04:58 | PTCARENOTE ---
precedex off. IV site leaking, removed and a new site started without incident. labs pending.
[2023-10-10] MEDS: NSS 1000 IV (05:02)
[2023-10-10 05:03] LABS: Hematocrit 36.7 % (37.0-47.0); Hemoglobin 12.4 g/dL (12.0-16.0); Mean Corp Hgb Conc. 33.8 g/dL (33.0-37.0); Mean Corpuscular Hgb 31.1 pg (27.0-31.0); Platelet Count 67 10^3/uL (130-400); Red Blood Cell Count 3.99 10^6/uL (4.20-5.40); Red Cell Dist. Width 17.4 % (11.5-14.5); White Blood Cell Count 4.6 10^3/uL (4.8-10.8)
[2023-10-10 05:09] LABS: INR 1.75; PT 20.3 Sec (11.4-14.6)
[2023-10-10 05:23] LABS: Ammonia 33 umol/L (9-30)
[2023-10-10 05:32] LABS: ALT (SGPT) 66 U/L (0-35); AST (SGOT) 398 U/L (14-36); Albumin 2.9 g/dl (3.5-5.0); Alkaline Phosphatase 168 U/L (38-126); Amylase 48 U/L (30-110); Blood Urea Nitrogen 8 mg/dl (7-17); Carbon Dioxide 20 mmol/L (22-30); Chloride 109 mmol/L (98-107); Estimated Creatinine Clearance > 125 ml/min; Glucose 113 mg/dl (70-99); Lipase 189 U/L (23-300); Potassium 3.9 mmol/L (3.5-5.1); Sodium 135 mmol/L (135-145); Total Bilirubin 4.2 mg/dl (0.2-1.3); Total Protein 6.6 g/dl (6.3-8.2); eGFR > 60.00
[2023-10-10] MEDS: CALCIUM GLUCONATE 130 MG IV (06:00)
[2023-10-10] MEDS: DUPHALAC/CHRONULAC 20 GRAMS PO (07:56)
[2023-10-10] MEDS: FOLVITE 1 MG PO (07:56)
[2023-10-10] MEDS: VITAMIN D3 (cholecalciferol) 125 MCG PO (07:56)
[2023-10-10] MEDS: THERAGRAN 1 TABLET PO (07:57)
--- NOTE | 2023-10-10 09:00 | PTCARENOTE ---
Additional assessment- Skin is pink wm and dry but does have bruising on R buttock and chest and arms. Scleral is sl jaundiced.
--- NOTE | 2023-10-10 09:00 | PTCARENOTE ---
Rec'd pt at 0800 awake alert and oriented resting in bed. Overall states she feels better and is hoping to take a shower today. Denies pain. No tremors noted. No seizure activity noted. Skin is pink wm and dry. Respirs are unlabored on RA with sats
of 97%. BS are clear. Monitor SR at rest but does get tachy into the 120's up to the 140's with activity then goes back to SR at rest. + pulses. VS as documented. Deneis chest pain. Abd is soft with + BS. Denies nausea. Aware that she is NPO for
potential paracentesis. Ambulated to the bathroom for urine and loose greenish/brown stool per pt. Pt does get Lactulose. IV NSS infusing at 125 ml/hr via R forearm IV site. Gait is minimally shaky with ambulation but overall easily able to bear wt
and ambulate. Call andrade in reach. Plan of care updated with pt.
--- NOTE | 2023-10-10 09:49 | W.PN.GI.CBS2 ---
Addendum entered and electronically signed by Sebastian Jacob MD 10/10/23 10:44:
I saw and examined the patient.
The PA's note was reviewed and I agree with the note.
Comment:
Pt feels better today. DF down to 37.8 from 46 yesterday which is encouraging sign. Repeat blood cx was -ve for growth yesterday and prednisolone 40 mg started. Will need to complete 4 week course. Continue / complete course of abx for E. coli
bacteremia. Pt will need alcohol counseling. Agree with diet. Will follow.
Addendum entered and electronically signed by LILLIANA Spears 10/10/23 10:33:
liver serology pending hep B/c neg, iron 36, TIBC 266, % sat 13, ferritin 260
Original Note:
Today's Communication / Plan
-
etiology of elevated LFT's with elevated INR and thrombocytopenia related to ETOH hepatitis vs underlying cirrhosis with some decompensation with thrombocytopenia and elevated INR and ETOH pancreatitis with concurrent UTI/bacteremia
LFT improving with decreased INR and platelets slightly up today
DF on admission 30.3 with (control of 13 )no role for steroids as <32 and concern for concurrent infectious process on admission -- repeat DF 46 10/09 with rise in INR and bili will cont. Dr. Jacob reviewed with Dr. June rangel for steroids if blood cx
clear. Prednisolone started last PM and DF today 37.8
cont Prednisolone daily with close watch for infection-- will need Lille score day 7 10/16 and arrange for GI follow up after discharge
MELD 3.0 21 on 10/10 labs
cont to trend labs with daily INR
ETOH abstinence-reinforced with patient and motivated to stop. She has had periods of sobriety in past
for IR eval to see if any ascites to tap for diagnostic purpose to rule out infection for cell count, cultures, etc. notify GI with volume removed if albumin needed
avoid hepatotoxic medication--
cont Lactulose daily -mental status remains intact, will stop Miralax as does not need to be on both if mental status intact
cont management for withdrawal per ICU team
OP GI follow up with concern for underlying cirrhosis
ok for regular diet with daily supplement -- review with nursing to verify NPO status-- does not need to be NPO for para
updated spouse on improvement -- sent pt name and spouse number to front desk administrator to arrange GI follow up 3-4 week
Assessment / Plan
-
Pt is a 38yo with hx ETOH abuse, obesity with noted seizure prior to admission. On admission she is note with WBC 11,700, platelet 102 with drop to 56, INR 1.53., lactate 7.5, libertad 6.4, AST 316, ALT 101., alk phos 318 and ammonia of 32. Lipase 1485
after admission US with changes of HM with fatty infiltration ans possible cirrhosis, distended GB with sludge.
-ETOH withdrawal seizure
-ETOH abuse
-elevated LFT's with concern for ETOH hepatitis with possible cirrhosis with rise in DF during admission
-elevated lipase with concern for component ETOH pancreatitis
-Ecoli bacteremia
-Kluyvera Ascorbata UTI
-mild ammonia elevation
-Elevated INR related to liver decompensation
-thrombocytopenia related to liver decompensation
-elevated lactate
-obesity
PLAN:
etiology of elevated LFT's with elevated INR and thrombocytopenia related to ETOH hepatitis vs underlying cirrhosis with some decompensation with thrombocytopenia and elevated INR and ETOH pancreatitis with concurrent UTI/bacteremia
LFT improving with decreased INR and platelets slightly up today
DF on admission 30.3 with (control of 13 )no role for steroids as <32 and concern for concurrent infectious process on admission -- repeat DF 46 10/09 with rise in INR and bili will cont. Dr. Jacob reviewed with Dr. June rangel for steroids if blood cx
clear. Prednisolone started last PM and DF today 37.8
cont Prednisolone daily with close watch for infection-- will need Lille score day 7 10/16 and arrange for GI follow up after discharge
MELD 3.0 21 on 10/10 labs
cont to trend labs with daily INR
ETOH abstinence-reinforced with patient and motivated to stop. She has had periods of sobriety in past
for IR francesca to see if any ascites to tap for diagnostic purpose to rule out infection for cell count, cultures, etc. notify GI with volume removed if albumin needed
avoid hepatotoxic medication--
cont Lactulose daily -mental status remains intact, will stop Miralax as does not need to be on both if mental status intact
cont management for withdrawal per ICU team
OP GI follow up with concern for underlying cirrhosis
ok for regular diet with daily supplement -- review with nursing to verify NPO status-- does not need to be NPO for para
updated spouse on improvement -- sent pt name and spouse number to front desk administrator to arrange GI follow up 3-4 week
Subjective
Subjective
Date of Service: October 10, 2023
NPO per doughmaker, feeling better 10/10 green, brown stool
Objective
Data Reviewed
Laboratory Data:
Laboratory Results
10/10/23 04:50
10/10/23 04:50
Laboratory Results
PT 20.3 Sec (11.4-14.6) H 10/10/23 04:50
INR 1.75 10/10/23 04:50
APTT 38.3 Sec (23.4-35.0) H 10/07/23 09:23
Phosphorus 2.5 mg/dl (2.5-4.5) 10/09/23 03:58
Magnesium 2.2 mg/dl (1.6-2.3) 10/09/23 03:58
Total Bilirubin 4.2 mg/dl (0.2-1.3) H 10/10/23 04:50
AST 398 U/L (14-36) H 10/10/23 04:50
ALT 66 U/L (0-35) H 10/10/23 04:50
Alkaline Phosphatase 168 U/L (38-126) H 10/10/23 04:50
Amylase 48 U/L (30-110) 10/10/23 04:50
Lipase 189 U/L (23-300) 10/10/23 04:50
Vital Signs and I&O:
Vital Signs
Temp Pulse Resp BP Pulse Ox
98.4 F 86 29 142/92 97
10/10/23 07:30 10/10/23 09:00 10/10/23 09:00 10/10/23 08:00 10/10/23 08:00
I&O
10/09/23 10/10/23 10/11/23
06:59 06:59 06:59
Intake Total 2562.6 / 2671.4 2896.6 / 3021.6 350 / 350
Balance 2562.6 / 2671.4 2896.6 / 3021.6 350 / 350
Physical Exam
Physical Exam
HEENT: Moist mucous membranes and Other (jaundice)
Cardiology: Normal Sinus Rhythm
Pulmonary: Clear
GI: Soft, Distended (very minimal ) and Non Tender
Extremities: No Edema
Neuro: Other (minimal shakiness but awake and alert )
--- NOTE | 2023-10-10 10:08 | PN.CDI ---
CDI
- -
CDI:
Physician Documentation Request
Admit Date: 10/07/23 12:37
Dear Doctor Octavia,
Patient admitted with sepsis, uti, TME from alcohol withdrawal and seizures.
10/07 Nurses note states 'Pt had removed her pulse ox, this was replaced and reading was 86% on RA. Placed on 2LNC-->no change in SpO2. O2 increased to 4L-->90%, increased to 6LNC and now is 92%. Pt tachypneic with RR in high 30s-40s'
Please clarify which of the following accurately represents the patient's respiratory status:
Acute respiratory failure - please indicate type
Hypoxia
Other
Additional information for Respiratory Failure:
Recognized criteria for Respiratory Failure (Source: [facility] Hospitalist Jun 2013)
ABGs: (1 or more) Symptoms Please indicate type
1. p)2 <60 or RA SPO2 <91% on RA 1. Tachypnea, SOB, dyspnea Hypoxic
2. pCO2 50 and pH <7.35 2. Use of accessory muscles Hypercapnic
3. pO2 decrease of pCO2 increase by 3. Pallor or cyanosis Hypoxic and Hypercapnic
10 mmHg from baseline if known 4. Anxiety or restlessness Unable to determine
5. Unable to speak in full sentences
Supplemental O2 of > 40% (5LPM) Intubation is not required
Use of terms such as suspected, likely, concern for, or probable (associated with a specific diagnosis that is being evaluated, monitored, or treated as if it exists) are acceptable and can be coded in the inpatient setting, when documented at the
time of discharge.
Thank you,
Tabatha Moreno RN, BSN
CDI Specialist
tiger text
Please use your independent medical judgment in providing your response.
--- NOTE | 2023-10-10 10:30 | PTCARENOTE ---
Ambulated to the bathroom then assisted oob to the chair. Again gets tachy into the 130's with movement but then settles to the 115 range. Stach. Call andrade in reach.
--- NOTE | 2023-10-10 11:03 | W.PN.ID1 ---
Date of Service
Date of Service: October 10, 2023
Today's Communication
Continue antibiotics.
Assessment / Plan
Bacteremia with E. coli
- Repeat blood cultures without growth.
Suspected complicated urinary tract infection
- Carline ascorbata recovered.
Leukocytosis
- Improved
Thrombocytopenia
Elevated bilirubin
Transaminitis
Seizure
Acute alcohol withdrawal
Recommendations:
Continue with cefepime.
Following repeat blood cultures to assure clearance.
Monitor white count and temperature curve.
����������������������������������������������������������
Chief Complaint
-: UTI and Bacteremia
Subjective / Review of Systems
Patient seen and examined. Reports no significant issues at present. Denies fevers or chills. Denies abdominal pain. Denies dysuria. No rigors. No difficulty with antibiotics noted.
Vital Signs / Physical Exam
Vital Signs
Vital Signs
Temp Pulse Resp BP Pulse Ox
98.4 F 86 29 142/92 97
10/10/23 07:30 10/10/23 09:00 10/10/23 09:00 10/10/23 08:00 10/10/23 08:00
Physical Exam
Constitutional: No Acute Distress, Comfortable and Non-toxic
Eyes: No Conjunctival Hemorrhage
Cardiovascular: S1/S2; Negative S3/S4
Pulmonary: Clear and Non Labored
Gastrointestinal: Soft, Non Tender, Non Distended and Normal Bowel Sounds
Extremities: Negative Edema, Cyanosis or Erythema
Neurological: Awake and Alert
Psychological: Calm
Objective Data
Lab Data
Lab Results
10/10/23 04:50
10/10/23 04:50
PT 20.3 Sec (11.4-14.6) H 10/10/23 04:50
INR 1.75 10/10/23 04:50
APTT 38.3 Sec (23.4-35.0) H 10/07/23 09:23
Estimated Creat Clear > 125 ml/min 10/10/23 04:50
Lactic Acid Cancelled 10/08/23 04:03
Total Bilirubin 4.2 mg/dl (0.2-1.3) H 10/10/23 04:50
GGT 947 U/L (12-43) H 10/09/23 03:58
AST 398 U/L (14-36) H 10/10/23 04:50
ALT 66 U/L (0-35) H 10/10/23 04:50
Alkaline Phosphatase 168 U/L (38-126) H 10/10/23 04:50
Amylase 48 U/L (30-110) 10/10/23 04:50
Most recent labs reviewed.
Micro Results:
10/07/23 09:26 Blood Culture - Final
Blood/Venous Escherichia coli
Gram Stain - Final
10/07/23 09:23 Blood Culture - Final
Blood/Venous Escherichia coli
Gram Stain - Final
10/10/23 04:50 Blood Culture - Pending
Blood/Venous
10/08/23 17:25 Blood Culture - Preliminary
Blood/Venous No Growth in 24 hours- Final report to follow
10/08/23 17:25 Blood Culture - Preliminary
Blood/Venous No Growth in 24 hours- Final report to follow
10/07/23 10:48 Urine Culture - Final
Urine Kluyvera ascorbata
10/07/23 09:26 Influenza Types A & B (AMAN) - Final
Nasal Swab Negative for Influenza A & B, NAAT
Negative results must be combined with clinical observations
and patient history.
Nucleic Acid Amplification test (NAAT)performed on the
[employer] platform.
Urine Culture Final 10/09/23-909
CC: Greater than 100,000 CFU/ML Kluyvera ascorbata
Organism 1 Kluyvera ascorbata
1. Kluyvera ascorbata
M.I.C. RX
--------- ---
Amoxicillin/Potas. Clavulanate 16/8 I
Ampicillin >16 R
Ampicillin/Sulbactam >16/8 R
Cefazolin 16 R
Cefepime <=2 S
Ceftazidime <=1 S
Ceftriaxone <=1 S
Ertapenem <=0.5 S
Ciprofloxacin <=0.25 S
Gentamicin <=4 S
Levofloxacin <=0.5 S
Meropenem <=1 S
Nitrofurantoin-Urine Only <=32 S
Piperacillin/Tazobactam 64 I
Tobramycin <=4 S
Trimethoprim/Sulfamethoxazole > R
Blood Culture Final 10/10/23-1005
Organism 1 Escherichia coli
1. Escherichia coli
M.I.C. RX
--------- ---
Amoxicillin/Potas. Clavulanate 16/8 I
Ampicillin >16 R
Ampicillin/Sulbactam >16/8 R
Cefazolin >16 R
Cefepime <=2 S
Ceftazidime <=1 S
Ceftriaxone <=1 S
Ertapenem <=0.5 S
Ciprofloxacin <=0.25 S
Gentamicin <=4 S
Levofloxacin <=0.5 S
Meropenem <=1 S
Piperacillin/Tazobactam 64 I
Tobramycin <=4 S
Trimethoprim/Sulfamethoxazole >/38 R
Imaging:
10/08/2023 CT abdomen/pelvis without contrast: Urinary bladder wall is thickened suggestive of cystitis. No nephrolithiasis or hydronephrosis noted. No perinephric stranding. Liver is diffusely heterogeneous in attenuation consistent with diffuse
fatty infiltration. Liver is enlarged with nodular contour suggestive of cirrhosis. Splenomegaly is suggestive of portal hypertension. Please see full dictation for additional detail.
--- NOTE | 2023-10-10 12:54 | W.PN.HOSP.TC ---
Today's Communication/Plan
-
Continue cefepime
started steroids
irad for para eval
monitor HR
Tx to tele
Assessment / Plan
Assessment / Plan
#Daily Alcohol use disorder with dependence
#Acute Alcohol withdrawal
#Toxic metabolic encephalopathy from Alc withdrawal and sepsis
-Patient drinks half to 1 bottle of vodka every day.� No previous history of withdrawal
-Last reported drink on 10/05 evening.
-Patient tachycardic/delirious/seizures, likely with alcohol withdrawal and off precedex gtt now.
-MSAS/Ativan ordered
-s/p phenobarb protocol regimen due to elevated in LFTs and phenobarb discontinued.
-CT head negative for acute pathology.
-MR brain single small focus of signal alteration in the subcortical white matter of the right parietal lobe, doubtful clinical significance. Otherwise normal MRI of the brain.
-Per neurology continue with CIWA protocol.
-Field Sales Executive on board.
#Sepsis from kluyvera UTI and e.coli bacteremia
#Lactic acidosis 2/2 above
-Tachycardic/febrile/Mild leukocytosis
-Blood culture positive E.coli and surveillance culture in lab negative.
-additional surveillance culture ordered for today
-Ceftriaxone discontinued started on cefepime by ID
-CT abdomen pelvis was negative for renal stone obstruction. No nephrolithiasis or hydronephrosis. No significant perinephric stranding.
-ID consulted
#Liver cirrhosis [facility] 2/2 alcohol abuse
#Jaundice
#Coagulopathy
#Thrombocytopenia
-Abdominal ultrasound showing microlobulated liver border suggestive of cirrhotic morphology
-No previous diagnosis of liver cirrhosis
-Have associated thrombocytopenia/jaundice/transaminitis/coagulopathy
-defer prednisolone to GI.
-NH3 wnl . Hep serology non reactive.
-CT abdomen pelvis showed Liver is of diffusely heterogeneous attenuation, overall attenuation is similar to the contents of the gallbladder, consistent with diffuse fatty infiltration. Given heterogeneous attenuation pattern, hepatitis should also
be considered. Liver is enlarged, measuring 26.3 cm in diameter. Nodular contour of the liver, suggestive of cirrhosis. Splenomegaly and multiple splenorenal collaterals, suggestive of portal hypertension. Small amount of pelvic free fluid, which
may be physiologic, but may also represent early ascites. No fluid seen adjacent to the liver or spleen.
-INR with mild improvement. DF improved fortunately. Start prednisolone 40mg daily. Add pepcid.
-IRAD eval for para
-GI following and d/w with Oscar
#Provoked Seizure episode
-Likely alcohol use and alcohol withdrawal related
-CT head within normal limit
-Keppra stopped.
-s/p MRI
-neuro on board.
#Hypomag/Hypophos/Hypokalemia
-replete/monitor
#Non anion gap acidosis likely 2/2 NS
-Agree with LR. Improving.
#Hypocalcemia 2/2 vit D def
-replete/monitor
-started po supplementation.
Acute hypoxic respiratory insufficiency
-resolved
#Sinus tachycardia
-monitor for now
DVT PPX -lovenox
Full code
tx to tele
Anticipated Discharge: > 48 hours
Subjective/Interval History
-
Date of Service: October 10, 2023
resting in bed
no abd pain or nausea or vomiting
tolerating some liquids and egg white
HR with tachycardia on exertion
no cp or sob
Objective Data
-
Labs:
Laboratory Results
10/10/23
04:50
WBC 4.6 L
Hgb 12.4
Hct 36.7 L
Plt Count 67 L D
PT 20.3 H
INR 1.75
Sodium 135
Potassium 3.9
Chloride 109 H
Carbon Dioxide 20 L
BUN 8
Creatinine 0.4 L
Glucose 113 H
Calcium 7.0 L
Total Bilirubin 4.2 H
AST 398 H
ALT 66 H
Alkaline Phosphatase 168 H
Vital Signs:
Vital Signs
Temp Pulse Resp BP Pulse Ox
98.4 F 131 18 141/102 97
10/10/23 07:30 10/10/23 11:00 10/10/23 11:00 10/10/23 10:50 10/10/23 08:00
I&O
10/09/23 10/10/23 10/11/23
06:59 06:59 06:59
Intake Total 2562.6 / 2671.4 2896.6 / 3021.6 350 / 350
Balance 2562.6 / 2671.4 2896.6 / 3021.6 350 / 350
Physical Exam
-
General: Well Developed and No Apparent Distress
HEENT: Normocephalic, Atraumatic and Moist Mucous Membranes
Respiratory: Clear to Auscultation
Cardiac: Regular Rhythm and S1/S2; Negative Murmur, Rub or Gallop
GI: Soft, Nontender, Nondistended and Normal Bowel Sounds; Negative Organomegaly
Rectal: Deferred by Provider
Musculoskeletal: No Clubbing, No Cyanosis and No Edema
Skin: Warm and Jaundice; Negative Rash
Neuro: Awake, Alert, Oriented, AO x 3 and No Motor Deficits; Negative Tremors
Psych: Calm
Data Reviewed
-
Total Time Spent with Patient (in minutes): 54
--- NOTE | 2023-10-10 13:00 | PTCARENOTE ---
Pt allowed to shower- assisted to the shower- Denies dizziness. in room with pt.
--- NOTE | 2023-10-10 13:20 | W.PN.INTV ---
Documented by User: Zee Almonte MD, Resident 10/10/23 14:02
Today's Communication / Plan
Recommendations
Precedex discontinued. Ativan PRN, although patient has not required it today.
Suitable to downgrade from ICU
Continue Cefepime
Acute liver failure workup pending including autoimmune serologies
Neurochecks q1hr
Aspiration precautions
Heparin started for DVT prophylaxis. No evidence of bleeding, Hgb stable, platelets mildly trending up (67 today).
Small amount of ascitic fluid --> if she spikes fever then will see if enough fluid for paracentesis
Low threshold to be intubated
Will conduct POCUS abd to assess ascites
Assessment
-
38-year-old male with a history of alcohol use disorder, obesity and was brought in by family after patient had a seizure at home-allergist/immunologist physician consulted for seizures/alcohol withdrawal/critical care management 10/07/2023. Out of active withdrawal
Assessment
Alcohol withdrawal/DTs/seizures-last drink 10/05/2023 evening - off precedex gtt since 4am
Alcoholic pancreatitis
Seizure episode likely withdrawal seizure
E. coli bacteremia - unknown source although suspect abdomen; initially suspected source to be UTI but her UCx is growing Kluyvera ascorbata
AMS likely due to TME in setting of acute liver failure; acute hepatitis also on differential
Complicated UTI
Alcoholic liver disease with suspected liver cirrhosis
Thrombocytopenia
Elevated LFTs, TCP & coagulopathy - likely related to acute liver failure in setting of sepsis with underlying suspected cirrhosis with alcohol use disorder; no RUQ or epigastric abd pain so I question if this is an acute alcoholic hepatitis
Leukocytosis
Lactic acidosis -now resolved
Metabolic acidosis with normal AG
At risk for sbstructive sleep apnea
AOCD (elevated ferritin with preserved TIBC and low Fe-Saturation)
Conditions present prior to admission:
Alcohol use disorder.
Cirrhosis suspected
[id number]
Plan
Phenobarbital DC'd as this can cause rise in LFTs ---> continue prn ativan, although pt has not required it today. Ready for downgrade to IMU
Supplemental oxygen as needed
Aspiration precautions
Incentive spirometry
Head of bed elevation
Follow MSAS
Supplement glucose and thiamine to prevent Wernicke's encephalopathy
Supplement multivitamins and folate
Replete K>3.5, Mg>1.8, PO4>3
Given her worsening LFTs, I DC'd her phenobarb and continue ativan PRN
Alcohol cessation counseling-Dr. Esparza asked if she thought about quitting-she replied 'yes probably cutting down'-Dr. Esparza told her she needs to quit completely as she has cirrhosis and she is dying-she will think about it
Consider psychiatry evaluation
Consider rehabilitation
On 10/08, I changed cefepime to ceftriaxone given cefepime's tendency to lower seizure threshold, and follow-up urine culture sensitivities--> ID now changing ABx back to cefepime
Maintain MAP>65
Considering she continues to spike fevers, I will consult IR for paracentesis
Trend LFTs including lipase, INR, LDH and GGT
GI on board
Considering acute liver failure is on the differential, follow-up autoimmune markers including anti-smooth muscle antibody, soluble liver antigen antibody; viral hepatitis serologies are negative (HBsAb positive indicating immunization Hz); follow
up ceruloplasmin
Continue Prednisolone for hepatitis
LFTs worsening, will consider re-check RUQ with doppler to rule out veno-occlusive disease
Follow up phosphatidylethanol level (send-out)
Trend ammonia level 45->37
TG level 157 -> continue to monitor with infrequent TG levels
May be better taken care of at a tertiary care center with liver transplant capabilities
Seizure precautions
Neurology on board --> Outpt follow up in 2 weeks
DVT prophylaxis - Heparin
GI prophylaxis
Early nutrition
Early mobilization
Outpatient sleep disordered breathing/obstructive sleep apnea follow-up
Diagnostic data:
Chest x-ray 10/07/2023-low lung volumes, no focal parenchymal consolidation to suggest pneumonia, mildly elevated left hemidiaphragm with basilar subsegmental atelectasis
Abdominal ultrasound 10/07/2023-hepatomegaly with diffuse fatty infiltration and microlobulated border suggestive of cirrhosis, distended gallbladder without cholelithiasis, gallbladder sludge versus incidental artifact, negative Montesinos sign
CT head 10/07/2023-no acute intracranial abnormalities
CT A/P 10-08-2023:
1. Urinary bladder wall is thickened, with adjacent inflammatory change, suggestive of cystitis. No nephrolithiasis or hydronephrosis on either side. No significant perinephric stranding on either side.
2. Liver is of diffusely heterogeneous attenuation, overall attenuation is similar to the contents of the gallbladder, consistent with diffuse fatty infiltration. Given heterogeneous attenuation pattern, hepatitis should also be considered. Liver is
enlarged, measuring 26.3 cm in diameter.
3. Nodular contour of the liver, suggestive of cirrhosis. Splenomegaly and multiple splenorenal collaterals, suggestive of portal hypertension.. Small amount of pelvic free fluid, which may be physiologic, but may also represent early ascites. No
fluid seen adjacent to the liver or spleen.
MRI Brain 10-09-2023:
No definite acute process. There is no new area of abnormal signal intensity on the diffusion-weighted images.
No change in the 3 mm focus of increased T2 signal intensity in the deep white matter posterior right parietal region seen on the exam the day before. Additional small punctate focus in the right frontal lobe. These areas do not enhance.
Minimal increase in T2 signal intensity in the periaqueductal region, thalami and mamillary bodies, with faint enhancement of the thalami bilaterally question Wernicke encephalopathy.
Subjective Dataa
Subjective Data
Date of Service:
Date of Service: October 10, 2023
Chief Complaint: [facility] Consultant Follow Up
Subjective:
No adverse events overnight. Pt feels better today, awake, alert and with no new complaints
Review of Systems
General: Fever (negative), Pain (negative) and Bruising (on right abdomen )
Cardiopulmonary: Dyspnea (negative), Cough (negative), Chest Pain (negative) and Lower Extremity Pain (negative)
GI: Abdominal Pain (negative), Diarrhea (positive) and Constipation (negative)
Genitourinary: Dysuria (negative)
Objective Data
Data Reviewed
Vital Signs / I&O / Oxygen:
Vital Signs
Temp Pulse Resp BP Pulse Ox
98.4 F 131 18 141/102 97
10/10/23 07:30 10/10/23 11:00 10/10/23 11:00 10/10/23 10:50 10/10/23 08:00
Intake and Output
10/09/23 10/10/23 10/11/23
06:59 06:59 06:59
Intake Total 2562.6 / 2671.4 2896.6 / 3021.6 350 / 350
Balance 2562.6 / 2671.4 2896.6 / 3021.6 350 / 350
SaO2 97
Nasal Cannula flow liters per 2
minute
Physical Exam
General: Comfortable and Pain (negative)
HEENT: Other (Scleral Icterus bilaterally)
Cardiovascular: S1-S2, Peripheral Edema (negative) and Calf Tenderness (negative)
Respiratory: Clear, Wheeze (negative), Crackles (fine crackles in LLL), Rhonchi (negative) and Non-Labored Respirations
GI: Soft, Non Distended, Non Tender and Normal Bowel Sounds
Neurology: Awake, Alert, Oriented, Tremors (negative) and Lethargic (Negative)
Skin: Warm, Dry and Jaundice
Labs/Micro/Reports
Lab Data
10/10/23 04:50
10/10/23 04:50
Laboratory Results
10/10/23
04:50
PT 20.3 H
INR 1.75
Microbiology
10/07/23 09:26 Blood/Venous Blood Culture - Final
Escherichia coli
10/07/23 09:26 Blood/Venous Gram Stain - Final
10/07/23 09:23 Blood/Venous Blood Culture - Final
Escherichia coli
10/07/23 09:23 Blood/Venous Gram Stain - Final
10/08/23 17:25 Blood/Venous Blood Culture - Preliminary
No Growth in 24 hours- Final report to follow
10/08/23 17:25 Blood/Venous Blood Culture - Preliminary
No Growth in 24 hours- Final report to follow
10/07/23 10:48 Urine Urine Culture - Final
Kluyvera ascorbata
10/07/23 09:26 Nasal Swab Influenza Types A & B (AMAN) - Final
Negative for Influenza A & B, NAAT
Negative results must be combined with clinical observations
and patient history.
Nucleic Acid Amplification test (NAAT)performed on the
[employer] platform.

Documented by User: Carloz Hopper MD 10/10/23 16:40
Today's Communication / Plan
Recommendations
Precedex discontinued. Ativan PRN, although patient has not required it today.
Continue Cefepime
Acute liver failure workup pending including autoimmune serologies
Neurochecks q4hr
Aspiration precautions
Heparin started for DVT prophylaxis. No evidence of bleeding, Hgb stable, platelets mildly trending up (67 today).
Small amount of ascitic fluid --> if she spikes fever then will see if enough fluid for paracentesis
Suitable to downgrade from ICU to IMU; [facility] Consultant/pulmonary service will sign off. Please reconsult if there are any additional questions/concerns, or if respiratory issues develop.
Assessment
-
38-year-old male with a history of alcohol use disorder, obesity and was brought in by family after patient had a seizure at home-allergist/immunologist physician consulted for seizures/alcohol withdrawal/critical care management 10/07/2023. Out of active withdrawal, and
patient now awaiting transfer to telemetry floor.
Assessment
Alcohol withdrawal/DTs/seizures-last drink 10/05/2023 evening - off precedex gtt since 4am
Alcoholic pancreatitis
Seizure episode likely EtOH withdrawal seizure
E. coli bacteremia - unknown source although suspect abdomen; initially suspected source to be UTI but her UCx is growing Kluyvera ascorbata
AMS likely due to TME in setting of acute liver failure; acute hepatitis also on differential - AMS now resolved and she is back to baseline
Complicated UTI
Alcoholic liver disease with suspected liver cirrhosis
Thrombocytopenia
Elevated LFTs, TCP & coagulopathy - likely related to acute liver failure in setting of sepsis with underlying suspected cirrhosis with alcohol use disorder; no RUQ or epigastric abd pain so I question if this is an acute alcoholic hepatitis
Leukocytosis
Lactic acidosis -now resolved
Metabolic acidosis with normal AG
At risk for obstructive sleep apnea
AOCD (elevated ferritin with preserved TIBC and low Fe-Saturation)
Conditions present prior to admission:
Alcohol use disorder.
Cirrhosis suspected
[id number]
Plan
Phenobarbital DC'd as this can cause rise in LFTs ---> continue prn ativan, although pt has not required it today. Ready for downgrade to IMU
Supplemental oxygen as needed
Aspiration precautions
Incentive spirometry
Head of bed elevation
Follow MSAS
Supplement glucose and thiamine to prevent Wernicke's encephalopathy
Supplement multivitamins and folate
Replete K>3.5, Mg>1.8, PO4>3
Given her worsening LFTs, I DC'd her phenobarb on 10/09 and continue ativan PRN
Alcohol cessation counseling-Dr. Esparza asked if she thought about quitting-she replied 'yes probably cutting down'-Dr. Esparza told her she needs to quit completely as she has cirrhosis and she is dying-she will think about it
Consider psychiatry evaluation
Consider rehabilitation
On 10/08, I changed cefepime to ceftriaxone given cefepime's tendency to lower seizure threshold, and follow-up urine culture sensitivities--> ID changed ABx back to cefepime on 10/09
Maintain MAP>65
Considering she continues to spike fevers, I consulted IR for paracentesis --> not large enough pocket for paracentesis; no fevers since 10/08 at 1930; pt has benign abdomen as well. Doubt infected ascites
Trend LFTs including lipase, INR, LDH and GGT
GI on board
Considering acute liver failure is on the differential, follow-up autoimmune markers including anti-smooth muscle antibody, soluble liver antigen antibody; viral hepatitis serologies are negative (HBsAb positive indicating immunization Hz); follow
up ceruloplasmin
Continue Prednisolone for hepatitis
LFTs worsening, will consider re-check RUQ with doppler to rule out veno-occlusive disease
Follow up phosphatidylethanol level (send-out)
Trend ammonia level 45->33
TG level 157 -> continue to monitor with infrequent TG levels
If LFTs begin to rise again, then would TRX to tertiary care center with liver transplant capabilities
Seizure precautions
Neurology on board --> Outpt follow up in 2 weeks
DVT prophylaxis - HSQ to be started today
GI prophylaxis
Early nutrition
Early mobilization
Outpatient sleep disordered breathing/obstructive sleep apnea follow-up
She also needs to follow up as an outpatient with hepatology.
Dispo: Downgrade to telemetry. [facility] Consultant/pulmonary service will now sign off. Thank you for allowing us to be involved in the care of this patient. Please reconsult if there are any additional questions/concerns, or if respiratory issues
develop.
Diagnostic data:
Chest x-ray 10/07/2023-low lung volumes, no focal parenchymal consolidation to suggest pneumonia, mildly elevated left hemidiaphragm with basilar subsegmental atelectasis
Abdominal ultrasound 10/07/2023-hepatomegaly with diffuse fatty infiltration and microlobulated border suggestive of cirrhosis, distended gallbladder without cholelithiasis, gallbladder sludge versus incidental artifact, negative Montesinos sign
CT head 10/07/2023-no acute intracranial abnormalities
CT A/P 10-08-2023:
1. Urinary bladder wall is thickened, with adjacent inflammatory change, suggestive of cystitis. No nephrolithiasis or hydronephrosis on either side. No significant perinephric stranding on either side.
2. Liver is of diffusely heterogeneous attenuation, overall attenuation is similar to the contents of the gallbladder, consistent with diffuse fatty infiltration. Given heterogeneous attenuation pattern, hepatitis should also be considered. Liver is
enlarged, measuring 26.3 cm in diameter.
3. Nodular contour of the liver, suggestive of cirrhosis. Splenomegaly and multiple splenorenal collaterals, suggestive of portal hypertension.. Small amount of pelvic free fluid, which may be physiologic, but may also represent early ascites. No
fluid seen adjacent to the liver or spleen.
MRI Brain 10-09-2023:
No definite acute process. There is no new area of abnormal signal intensity on the diffusion-weighted images.
No change in the 3 mm focus of increased T2 signal intensity in the deep white matter posterior right parietal region seen on the exam the day before. Additional small punctate focus in the right frontal lobe. These areas do not enhance.
Minimal increase in T2 signal intensity in the periaqueductal region, thalami and mamillary bodies, with faint enhancement of the thalami bilaterally question Wernicke encephalopathy.
Objective Data
Physical Exam
HEENT: Normocephalic
[2023-10-10] MEDS: PRELONE 40 MG PO (14:13)
[2023-10-10] MEDS: FLUSH (NSS) 1 FLUSH IV (14:14)
[2023-10-10] MEDS: LR 1000 IV ×2 (14:14→23:17)
--- NOTE | 2023-10-10 14:15 | PTCARENOTE ---
Pt showered then sat oob in the chair for lunch- had pt on tele pack. Currently back in bed.Dr. Hopepr in to see pt and spoke with pt and . IV fluids capped around 1100 as pt was eating and drinking but restarted currently per Dr. Dudley-
LR at 100 ml/hr via R forearm IV site. Predisilone given per md order. VS as documented. No complaints. Other then being tachycardic 105-140's depending on activity- no tremors noted. Call andrade in reach. Pt encouraged by GI to eat regularly and a
healthy diet to help with the cirrhosis. Pt education info given on diet. Will continue to monitor
[2023-10-10] MEDS: HEPARIN 5000 UNITS SC ×2 (16:16→23:17)
--- NOTE | 2023-10-10 16:30 | PTCARENOTE ---
Remains resting. No changes in assessment. SCD's reapplied to legs now that back in bed.
--- NOTE | 2023-10-10 16:42 | W.PN.UPDATE ---
Update Note
Progress Note Update
Preschool Teacher Aide Daily progress note dictated, refer to family medicine residents note (Dr. Almonte). My completed section is within that note.
--- NOTE | 2023-10-10 17:20 | W.PN.NEURO.1 ---
Today's Communication / Plan
-
.
Subjective/Objective
Subjective Data
Date of Service: October 10, 2023
24h events: Afebrile, tachycardic. Off phenobarbital, was started on prednisone yesterday.
Labs: Pl-60, WBC 4.6.
Brain MRI with zoran-Minimal increase in T2 signal intensity in the periaqueductal region, thalami and mamillary bodies, with faint enhancement of the thalami bilaterally.
PMH: ETOH addiction
All: NKDA
ROS:Constitutional: Negative. Negative for chills, fever and unexpected weight change.
HENT: Negative for ear pain, hearing loss, tinnitus and trouble swallowing.
Eyes: Negative. Negative for photophobia, pain and visual disturbance.
Respiratory: Negative for cough, choking and shortness of breath.
Cardiovascular: Negative for chest pain, palpitations and leg swelling.
Gastrointestinal: Negative for abdominal pain and vomiting.
Endocrine: Negative. Negative for cold intolerance.
Genitourinary: Negative for dysuria, flank pain and urgency.
Musculoskeletal: Negative for back pain, gait problem, neck pain and neck stiffness.
Skin: Negative for rash.
Allergic/Immunologic: Negative. Negative for immunocompromised state.
Neurological: negative for headaches.
Psychiatric/Behavioral: Negative for behavioral problems, confusion and hallucinations.
�
�
General: Well developed. In no acute distress. Icteric
Cardio: Regular rate and rhythm without murmur. Extremities are without cyanosis or edema.
Neuro:
Mental Status: Alert, oriented to self, year, month.� Impaired attention(improved).� Follows simple requests consistently.� No hemineglect.� Nonfluent
Cranial Nerves: . Pupils are equally round and reactive to light.� EOMs full.� Visual garza full to confrontation.� No ptosis.� No nystagmus.� V1-V3 intact to light touch and pinprick bilaterally, symmetric.� Face symmetric.� Normal hearing AU.�
The palate elevated well.� SCMs and traps 5/5.� Tongue midline.� No dysarthria.
Motor:� � � � Normal bulk and tone.� No pronator or arm drift.� Strength 5/5 throughout. No clonus.
Coordination: No dysmetria or tremor. No myoclonus
Gait: � � � � � deferred
R tongue laceration/ecchymosis
Assessment and Plan:
�
�I. EtOH addiction with with withdrawal and provoked seizure
II. Abnormal brain MRI, likely due to thiamine deficiency
III. Thrombocytopenia
IV. E coli bacteremia
-Avoid medications known to lower seizure threshold(Cefepime)
-Continue IV thiamine 200 mg once a day
-OP neurology follow up in 2 weeks
�
I personally reviewed all radiology and labs along with past medical records pertinent to current medical problems.
�
Thank you for allowing us to participate in the care of this patient.� Please do not hesitate to contact us with any questions or concerns
Objective Data
Vital Signs
Temp Pulse Resp BP Pulse Ox
36.8 C 110 22 139/103 97
10/10/23 15:00 10/10/23 16:06 10/10/23 16:06 10/10/23 16:01 10/10/23 16:00
Lab Results
10/10/23 04:50
10/10/23 04:50
PT 20.3 Sec (11.4-14.6) H 10/10/23 04:50
INR 1.75 10/10/23 04:50
APTT 38.3 Sec (23.4-35.0) H 10/07/23 09:23
Sodium 135 mmol/L (135-145) 10/10/23 04:50
Potassium 3.9 mmol/L (3.5-5.1) 10/10/23 04:50
BUN 8 mg/dl (7-17) 10/10/23 04:50
Glucose 113 mg/dl (70-99) H 10/10/23 04:50
Calcium 7.0 mg/dl (8.4-10.2) L 10/10/23 04:50
Phosphorus 2.5 mg/dl (2.5-4.5) 10/09/23 03:58
LDL Cholesterol, Calc 96 mg/dl 10/09/23 03:58
Vitamin B12 831 pg/ml (239-931) 10/08/23 12:13
Ur Buprenorphine Negative (Negative) 10/07/23 11:52
Patient Allergies
No Known Allergies Allergy (Unverified 10/07/23 09:16)
--- NOTE | 2023-10-10 18:21 | PTCARENOTE ---
OOB to the bathroom then to the chair. Voided and had per pt a small amt of loose stool. No other changes. Cheeks tend to get flushed which pt states happens to her. Was tearful earlier this afternoon thinking about things but is better now. Support
given. Call andrade in reach.
--- NOTE | 2023-10-10 19:20 | PTCARENOTE ---
C/O intermittent lower back soreness which she states she gets. Ambulated x2 loops in the hallway with her . HR up to the 140's with walking. Currently with resting back down to 126. Sinus Tach. K pad and Lidoderm patch ordered. Will continue
to monitor. at the bedside
[2023-10-10] MEDS: LIDOCAINE 4% PATCH 1 PATCH TOPICAL (19:34)
[2023-10-10] MEDS: VITAMIN B1 100 MG PO (20:01)
--- NOTE | 2023-10-10 20:57 | PTCARENOTE ---
alert and orientated x3, pleasnt and cooperative. visiting with family, remains on room air. heating pad applied to lower back.
[2023-10-11] VITALS (13 sets, daily range): BP systolic 105–150; BP diastolic 77–107
[2023-10-11] MEDS: STERILE WATER FOR INJECTION 10 ML IV ×2 (03:38→15:25)
[2023-10-11] MEDS: MAXIPIME 2000 MG IV ×2 (03:39→15:25)
[2023-10-11 03:49] LABS: Hematocrit 36.6 % (37.0-47.0); Hemoglobin 12.5 g/dL (12.0-16.0); Mean Corp Hgb Conc. 34.2 g/dL (33.0-37.0); Mean Corpuscular Hgb 30.9 pg (27.0-31.0); Mean Corpuscular Volume 90.6 fL (81.0-99.0); Mean Platelet Volume 12.3 fL (7.4-10.4); Platelet Count 101 10^3/uL (130-400); Red Blood Cell Count 4.04 10^6/uL (4.20-5.40); Red Cell Dist. Width 17.3 % (11.5-14.5); White Blood Cell Count 8.2 10^3/uL (4.8-10.8)
[2023-10-11 04:01] LABS: INR 1.76; PT 20.4 Sec (11.4-14.6)
[2023-10-11 04:26] LABS: ALT (SGPT) 93 U/L (0-35); AST (SGOT) 637 U/L (14-36); Albumin 3.3 g/dl (3.5-5.0); Alkaline Phosphatase 184 U/L (38-126); Amylase 125 U/L (30-110); Blood Urea Nitrogen 10 mg/dl (7-17); Calcium 8.5 mg/dl (8.4-10.2); Carbon Dioxide 25 mmol/L (22-30); Chloride 104 mmol/L (98-107); Estimated Creatinine Clearance > 125 ml/min; Glucose 93 mg/dl (70-99); Lipase 1077 U/L (23-300); Potassium 3.7 mmol/L (3.5-5.1); Sodium 134 mmol/L (135-145); Total Bilirubin 4.8 mg/dl (0.2-1.3); Total Protein 7.2 g/dl (6.3-8.2); eGFR > 60.00
[2023-10-11] MEDS: PRELONE 40 MG PO (08:13)
[2023-10-11] MEDS: DUPHALAC/CHRONULAC 20 GRAMS PO (08:14)
[2023-10-11] MEDS: THERAGRAN 1 TABLET PO (08:15)
[2023-10-11] MEDS: PEPCID 20 MG PO (08:15)
[2023-10-11] MEDS: FOLVITE 1 MG PO (08:15)
[2023-10-11] MEDS: VITAMIN B1 100 MG PO ×2 (08:15→20:14)
[2023-10-11] MEDS: VITAMIN D3 (cholecalciferol) 125 MCG PO (08:15)
[2023-10-11] MEDS: HEPARIN 5000 UNITS SC ×2 (08:15→15:25)
--- NOTE | 2023-10-11 08:24 | SUR.OPER ---
0700 patient received out of bed ambulating in a room. AAO x3 Denies pain. BP via left upper arm 151/91 ST 101; RR 20. Abdomen round non distended. Stated of having 4 loose bowel movement over night. Voiding in a bathroom. LR d/c. left AC flushed
capped . pt telemetry level of care . call andrade with reach
[2023-10-11 10:01] LABS: F-Actin Antibody IgG 6 Units (0-19)
--- NOTE | 2023-10-11 10:18 | W.PN.ID1 ---
Date of Service
Date of Service: October 11, 2023
Today's Communication
Continue antibiotics. See below�
Assessment / Plan
Bacteremia with E. coli
- Repeat blood cultures without growth.
Suspected complicated urinary tract infection
- Carline ascorbata recovered.
Leukocytosis
- Improved
Thrombocytopenia
Elevated bilirubin
Transaminitis
Seizure
Acute alcohol withdrawal
Recommendations:
Continue with cefepime. Neurology note reviewed in detail and request to avoid medications lowering the seizure threshold noted (specifically, cefepime) but antibiotic options are limited, and other medications would potentially have a equal, if
not more, deleterious effect upon the seizure threshold (ie. fluoroquinolones, carbapenems)
May be able to transition to an oral regimen in the next 24 to 48 hours.
Following repeat blood cultures to assure clearance.
Monitor white count and temperature curve.
����������������������������������������������������������
Chief Complaint
-: UTI and Bacteremia
Subjective / Review of Systems
Review of Systems: No Fever, No Chills, No Abdominal Pain, No Nausea and No Dysuria
Vital Signs / Physical Exam
Vital Signs
Vital Signs
Temp Pulse Resp BP Pulse Ox
98.9 F 130 18 150/101 100
10/11/23 08:17 10/11/23 08:20 10/11/23 08:17 10/11/23 08:17 10/11/23 08:17
Physical Exam
Constitutional: No Acute Distress, Comfortable and Non-toxic
Eyes: Sclera Anicteric
Cardiovascular: S1/S2; Negative S3/S4
Pulmonary: Non Labored; Negative Wheezes, Rales or Rhonchi
Gastrointestinal: Soft and Non Tender
Skin: Negative Rash or Jaundice
Neurological: Awake and Alert
Psychological: Calm
Objective Data
Lab Data
Lab Results
10/11/23 03:37
10/11/23 03:37
PT 20.4 Sec (11.4-14.6) H 10/11/23 03:37
INR 1.76 10/11/23 03:37
APTT 38.3 Sec (23.4-35.0) H 10/07/23 09:23
Estimated Creat Clear > 125 ml/min 10/11/23 03:37
Lactic Acid Cancelled 10/08/23 04:03
Total Bilirubin 4.8 mg/dl (0.2-1.3) H 10/11/23 03:37
GGT 947 U/L (12-43) H 10/09/23 03:58
AST 637 U/L (14-36) H* 10/11/23 03:37
ALT 93 U/L (0-35) H 10/11/23 03:37
Alkaline Phosphatase 184 U/L (38-126) H 10/11/23 03:37
Amylase 125 U/L (30-110) H 10/11/23 03:37
Most recent labs reviewed.
Micro Results:
10/10/23 04:50 Blood Culture - Preliminary
Blood/Venous No Growth in 24 hours- Final report to follow
10/08/23 17:25 Blood Culture - Preliminary
Blood/Venous No Growth in 48 hours- Final report to follow
10/08/23 17:25 Blood Culture - Preliminary
Blood/Venous No Growth in 48 hours- Final report to follow
10/07/23 09:26 Blood Culture - Final
Blood/Venous Escherichia coli
Gram Stain - Final
10/07/23 09:23 Blood Culture - Final
Blood/Venous Escherichia coli
Gram Stain - Final
10/07/23 10:48 Urine Culture - Final
Urine Kluyvera ascorbata
10/07/23 09:26 Influenza Types A & B (AMAN) - Final
Nasal Swab Negative for Influenza A & B, NAAT
Negative results must be combined with clinical observations
and patient history.
Nucleic Acid Amplification test (NAAT)performed on the
[employer] platform.
Urine Culture Final 10/09/23-909
CC: Greater than 100,000 CFU/ML Kluyvera ascorbata
Organism 1 Kluyvera ascorbata
1. Kluyvera ascorbata
M.I.C. RX
--------- ---
Amoxicillin/Potas. Clavulanate 16/8 I
Ampicillin >16 R
Ampicillin/Sulbactam >16/8 R
Cefazolin 16 R
Cefepime <=2 S
Ceftazidime <=1 S
Ceftriaxone <=1 S
Ertapenem <=0.5 S
Ciprofloxacin <=0.25 S
Gentamicin <=4 S
Levofloxacin <=0.5 S
Meropenem <=1 S
Nitrofurantoin-Urine Only <=32 S
Piperacillin/Tazobactam 64 I
Tobramycin <=4 S
Trimethoprim/Sulfamethoxazole >2/38 R
Blood Culture Final 10/10/23-1005
Organism 1 Escherichia coli
1. Escherichia coli
M.I.C. RX
--------- ---
Amoxicillin/Potas. Clavulanate 16/8 I
Ampicillin >16 R
Ampicillin/Sulbactam >16/8 R
Cefazolin >16 R
Cefepime <=2 S
Ceftazidime <=1 S
Ceftriaxone <=1 S
Ertapenem <=0.5 S
Ciprofloxacin <=0.25 S
Gentamicin <=4 S
Levofloxacin <=0.5 S
Meropenem <=1 S
Piperacillin/Tazobactam 64 I
Tobramycin <=4 S
Trimethoprim/Sulfamethoxazole > R
Imaging:
10/08/2023 CT abdomen/pelvis without contrast: Urinary bladder wall is thickened suggestive of cystitis. No nephrolithiasis or hydronephrosis noted. No perinephric stranding. Liver is diffusely heterogeneous in attenuation consistent with diffuse
fatty infiltration. Liver is enlarged with nodular contour suggestive of cirrhosis. Splenomegaly is suggestive of portal hypertension. Please see full dictation for additional detail.
[2023-10-11 11:09] LABS: Total T3 (Sendout) 80 ng/dL (80-200)
--- NOTE | 2023-10-11 12:18 | W.PN.HOSP.TC ---
Today's Communication/Plan
-
IV abx
po steroids
lopressor
Cont thiamine
GI recs
Assessment / Plan
Assessment / Plan
#Liver cirrhosis likley 2/2 alcohol abuse
#Jaundice
#Coagulopathy
#Thrombocytopenia
-Abdominal ultrasound showing microlobulated liver border suggestive of cirrhotic morphology
-No previous diagnosis of liver cirrhosis
-Have associated thrombocytopenia/jaundice/transaminitis/coagulopathy
-defer prednisolone to GI.
-NH3 wnl . Hep serology non reactive.
-CT abdomen pelvis showed Liver is of diffusely heterogeneous attenuation, overall attenuation is similar to the contents of the gallbladder, consistent with diffuse fatty infiltration. Given heterogeneous attenuation pattern, hepatitis should also
be considered. Liver is enlarged, measuring 26.3 cm in diameter. Nodular contour of the liver, suggestive of cirrhosis. Splenomegaly and multiple splenorenal collaterals, suggestive of portal hypertension. Small amount of pelvic free fluid, which
may be physiologic, but may also represent early ascites. No fluid seen adjacent to the liver or spleen.
-INR with mild improvement. DF improved fortunately. Start prednisolone 40mg daily. Added pepcid.
-IRAD eval for para-not enough fluid for para.
-severe bump in AST noted today
-GI following and d/w with Oscar and requested phosphatidylethanol level-send out.
#Daily Alcohol use disorder with dependence
#Acute Alcohol withdrawal
#Toxic metabolic encephalopathy from Alc withdrawal and sepsis
-Patient drinks half to 1 bottle of vodka every day.� No previous history of withdrawal
-Last reported drink on 10/05 evening.
-Patient tachycardic/delirious/seizures, likely with alcohol withdrawal and off precedex gtt now.
-MSAS/Ativan ordered
-s/p phenobarb protocol regimen due to elevated in LFTs and phenobarb discontinued.
-CT head negative for acute pathology.
-MR brain single small focus of signal alteration in the subcortical white matter of the right parietal lobe, doubtful clinical significance. Otherwise normal MRI of the brain.
-Continue with Thiamine.
-Per neurology continue with [facility] protocol.
#Sepsis from kluyvera UTI and e.coli bacteremia
#Lactic acidosis 2/2 above
-Tachycardic/febrile/Mild leukocytosis
-Blood culture positive E.coli and surveillance culture in lab are negative so far.
-Ceftriaxone discontinued started on cefepime by ID
-CT abdomen pelvis was negative for renal stone obstruction. No nephrolithiasis or hydronephrosis. No significant perinephric stranding.
-ID consulted
#Provoked Seizure episode
-Likely alcohol use and alcohol withdrawal related
-CT head within normal limit
-Keppra stopped.
-s/p MRI
-IV thaimine
-OP f/u with neuro
#Hypomag/Hypophos/Hypokalemia
-replete/monitor
#Non anion gap acidosis likely 2/2 NS
-improved.
#Hypocalcemia 2/2 vit D def
-replete/monitor
-started po supplementation.
Acute hypoxic respiratory insufficiency
-resolved
#Sinus tachycardia with elevated blood pressure
-monitor for now -started low dose lopressor.
DVT PPX -lovenox
Full code
awaiting bed to tele
Anticipated Discharge: > 48 hours
Subjective/Interval History
-
Date of Service: October 11, 2023
Tolerating diet
HR with tachycardia and elevated bp
no nausea or vomiting
Objective Data
-
Labs:
Laboratory Results
10/11/23
03:37
WBC 8.2
Hgb 12.5
Hct 36.6 L
Plt Count 101 L D
PT 20.4 H
INR 1.76
Sodium 134 L
Potassium 3.7
Chloride 104
Carbon Dioxide 25
BUN 10
Creatinine 0.4 L
Glucose 93
Calcium 8.5 D
Total Bilirubin 4.8 H
AST 637 H*
ALT 93 H
Alkaline Phosphatase 184 H
Vital Signs:
Vital Signs
Temp Pulse Resp BP Pulse Ox
98.3 F 130 18 150/101 100
10/11/23 11:27 10/11/23 08:20 10/11/23 08:17 10/11/23 08:17 10/11/23 08:17
I&O
10/10/23 10/11/23 10/12/23
06:59 06:59 06:59
Intake Total 2896.6 / 3021.6 2750 / 2750
Balance 2896.6 / 3021.6 2750 / 2750
Physical Exam
-
General: Well Developed and No Apparent Distress
HEENT: Normocephalic, Atraumatic and Moist Mucous Membranes
Respiratory: Clear to Auscultation
Cardiac: Regular Rhythm, S1/S2 and Tachycardic; Negative Murmur, Rub or Gallop
GI: Soft, Nontender, Nondistended and Normal Bowel Sounds; Negative Organomegaly
Rectal: Deferred by Provider
Musculoskeletal: No Clubbing, No Cyanosis and No Edema
Skin: Warm and Jaundice; Negative Rash
Neuro: Awake, Alert, Oriented, AO x 3 and No Motor Deficits; Negative Tremors
Psych: Calm
Data Reviewed
-
Total Time Spent with Patient (in minutes): 44
[2023-10-11] MEDS: LOPRESSOR 12.5 MG PO ×2 (12:42→20:15)
--- NOTE | 2023-10-11 14:12 | CM ---
CM following re: discharge planning.
Discussed in Rounds, reviewed pt's chart, met with pt yesterday. Pt is treating for Liver cirrhosis likely 2/2 alcohol abuse, Daily Alcohol use disorder with dependence, Acute Alcohol withdrawal. Toxic metabolic encephalopathy from Alc withdrawal
and sepsis, continue supportive care.
[facility] met with pt yesterday, pt declined [facility] services, inpatient and/or outpatient D&A resources and she stated she will stop drinking on her own. CM explained the benefits of D&A treatment and pt declined it.
D/C plan: home with anticipated no needs. to transport at discharge.
CM will follow with discharge plan updates as hospitalization progresses
--- NOTE | 2023-10-11 15:53 | PTCARENOTE ---
patient ambulates with her in a hallway OOB in chair 8 hrs . tolerating food and liquids without difficulties
--- NOTE | 2023-10-11 16:08 | W.PN.GI.CBS2 ---
Today's Communication / Plan
-
.
Assessment / Plan
-
Admitted with alcoholic hepatitis and acute pancreatitis.� Pt has h/o alcohol abuse, has been drinking a bottle of vodka in 1-2 days, 3-4 days a week, for few years.� DF on admission was 30, which increased to 46 on day #2. Pt also noted to have E.
coli UTI with E. coli bacteremia as she grew this from blooc cx.� Her case was discussed with [employer] principal at [facility] (Dr. Faraz Watkins) - would prefer to clear bacteremia before starting steroids. Her repeat blood cx was -ve and prednisolone 40 mg
started 10/09 evening.�
Her DF improved to 37.8, it is 38.8 today. Had discussion with pt - if her DF worsens tomorrow, will need to re-contact [facility] for possible transfer. Will follow.
Total Time Spent with Patient (in minutes): 35
Subjective
Subjective
Date of Service: October 11, 2023
No events o/n.
Objective
Data Reviewed
Laboratory Data:
Laboratory Results
10/11/23 03:37
10/11/23 03:37
Laboratory Results
PT 20.4 Sec (11.4-14.6) H 10/11/23 03:37
INR 1.76 10/11/23 03:37
APTT 38.3 Sec (23.4-35.0) H 10/07/23 09:23
Phosphorus 2.5 mg/dl (2.5-4.5) 10/09/23 03:58
Magnesium 2.2 mg/dl (1.6-2.3) 10/09/23 03:58
Total Bilirubin 4.8 mg/dl (0.2-1.3) H 10/11/23 03:37
AST 637 U/L (14-36) H* 10/11/23 03:37
ALT 93 U/L (0-35) H 10/11/23 03:37
Alkaline Phosphatase 184 U/L (38-126) H 10/11/23 03:37
Amylase 125 U/L (30-110) H 10/11/23 03:37
Lipase 1077 U/L (23-300) H* 10/11/23 03:37
Vital Signs and I&O:
Vital Signs
Temp Pulse Resp BP Pulse Ox
98.4 F 88 18 133/91 100
10/11/23 15:00 10/11/23 15:50 10/11/23 08:17 10/11/23 14:45 10/11/23 08:17
I&O
10/10/23 10/11/23 10/12/23
06:59 06:59 06:59
Intake Total 2896.6 / 3021.6 2750 / 2750 480 / 480
Balance 2896.6 / 3021.6 2750 / 2750 480 / 480
[2023-10-11 18:58] LABS: LKM-1 Ab (IgG) 0.8 U (0.0-24.9); Soluble Liver Antigen Ab 1.8 U (0.0-24.9)
--- NOTE | 2023-10-11 20:43 | PTCARENOTE ---
alert and orientated x3. oob most of the day, ambulating in room, parents at bedside.
[2023-10-12] MEDS: HEPARIN 5000 UNITS SC (00:11)
[2023-10-12 01:00] LABS: Ceruloplasmin 24 mg/dL (16-45)
[2023-10-12] MEDS: MAXIPIME 2000 MG IV (01:23)
[2023-10-12] MEDS: STERILE WATER FOR INJECTION 10 ML IV (01:23)
[2023-10-12 05:07] LABS: Hemoglobin 11.1 g/dL (12.0-16.0); Mean Corp Hgb Conc. 34.7 g/dL (33.0-37.0); Mean Corpuscular Hgb 30.9 pg (27.0-31.0); Mean Corpuscular Volume 89.1 fL (81.0-99.0); Mean Platelet Volume 12.2 fL (7.4-10.4); Platelet Count 91 10^3/uL (130-400); Red Blood Cell Count 3.59 10^6/uL (4.20-5.40); Red Cell Dist. Width 17.2 % (11.5-14.5)
[2023-10-12 05:33] LABS: Blood Urea Nitrogen 10 mg/dl (7-17); Calcium 8.1 mg/dl (8.4-10.2); Carbon Dioxide 25 mmol/L (22-30); Chloride 102 mmol/L (98-107); Estimated Creatinine Clearance > 125 ml/min; Glucose 87 mg/dl (70-99); Sodium 134 mmol/L (135-145); eGFR > 60.00
[2023-10-12 05:43] LABS: ALT (SGPT) 88 U/L (0-35); AST (SGOT) 428 U/L (14-36); Albumin 2.7 g/dl (3.5-5.0); Alkaline Phosphatase 157 U/L (38-126); Amylase 160 U/L (30-110); Direct Bilirubin 2.6 mg/dl (0.0-0.4); Lipase 1570 U/L (23-300); Total Bilirubin 3.7 mg/dl (0.2-1.3); Total Protein 6.2 g/dl (6.3-8.2)
[2023-10-12] MEDS: KCL 270 MEQ IV (06:18)
[2023-10-12] MEDS: KCL 40 MEQ PO (06:19)
[2023-10-12 08:39] VITALS: BP 146/91
[2023-10-12] MEDS: DUPHALAC/CHRONULAC 20 GRAMS PO (08:39)
[2023-10-12] MEDS: PRELONE 40 MG PO (08:39)
[2023-10-12] MEDS: PEPCID 20 MG PO (08:40)
[2023-10-12] MEDS: LOPRESSOR 12.5 MG PO ×2 (08:40→19:25)
[2023-10-12] MEDS: VITAMIN D3 (cholecalciferol) 125 MCG PO (08:40)
[2023-10-12] MEDS: FOLVITE 1 MG PO (08:40)
[2023-10-12] MEDS: THERAGRAN 1 TABLET PO (08:40)
[2023-10-12] MEDS: VITAMIN B1 100 MG PO ×2 (08:40→19:21)
[2023-10-12] MEDS: HEPARIN SC ×4 (08:41→23:15)
--- NOTE | 2023-10-12 09:14 | W.PN.ID1 ---
Date of Service
Date of Service: October 12, 2023
Today's Communication
Transition to oral cefdinir.
Assessment / Plan
Bacteremia with E. coli
- Repeat blood cultures without growth.
Suspected complicated urinary tract infection
- Jagdisha ascorbata recovered.
Leukocytosis
- Improved
Thrombocytopenia
Elevated bilirubin
Transaminitis
Seizure
Acute alcohol withdrawal
Recommendations:
Narrow to cefdinir 300 mg p.o. twice daily, to continue with antibiotic therapy through 10/18/2023
Monitor white count and temperature curve.
Continue with supportive measures.
Gastroenterology following closely re: liver failure. Prognosis remains guarded.
Patient may ultimately require transfer to tertiary care center for liver transplant evaluation.
����������������������������������������������������������
Chief Complaint
-: UTI and Bacteremia
Subjective / Review of Systems
Review of Systems: No Fever, No Chills, No Abdominal Pain and No Dysuria
Vital Signs / Physical Exam
Vital Signs
Vital Signs
Temp Pulse Resp BP Pulse Ox
99.3 F 86 18 146/91 98
10/12/23 07:45 10/12/23 08:40 10/11/23 08:17 10/12/23 08:40 10/11/23 20:42
Physical Exam
Constitutional: No Acute Distress, Comfortable and Non-toxic
Eyes: No Conjunctival Hemorrhage
Cardiovascular: S1/S2; Negative S3/S4
Pulmonary: Non Labored
Gastrointestinal: Soft, Non Distended and Normal Bowel Sounds
Skin: Jaundice
Neurological: Awake and Alert
Psychological: Calm
Objective Data
Lab Data
Lab Results
10/12/23 04:45
10/12/23 04:45
PT 20.4 Sec (11.4-14.6) H 10/11/23 03:37
INR 1.76 10/11/23 03:37
APTT 38.3 Sec (23.4-35.0) H 10/07/23 09:23
Estimated Creat Clear > 125 ml/min 10/12/23 04:45
Lactic Acid Cancelled 10/08/23 04:03
Total Bilirubin 3.7 mg/dl (0.2-1.3) H 10/12/23 04:45
GGT 947 U/L (12-43) H 10/09/23 03:58
AST 428 U/L (14-36) H 10/12/23 04:45
ALT 88 U/L (0-35) H 10/12/23 04:45
Alkaline Phosphatase 157 U/L (38-126) H 10/12/23 04:45
Amylase 160 U/L (30-110) H 10/12/23 04:45
Most recent labs reviewed.
Micro Results:
10/10/23 04:50 Blood Culture - Preliminary
Blood/Venous No Growth in 48 hours- Final report to follow
10/08/23 17:25 Blood Culture - Preliminary
Blood/Venous No Growth in 72 hours- Final report to follow
10/08/23 17:25 Blood Culture - Preliminary
Blood/Venous No Growth in 72 hours- Final report to follow
10/07/23 09:26 Blood Culture - Final
Blood/Venous Escherichia coli
Gram Stain - Final
10/07/23 09:23 Blood Culture - Final
Blood/Venous Escherichia coli
Gram Stain - Final
10/07/23 10:48 Urine Culture - Final
Urine Kluyvera ascorbata
10/07/23 09:26 Influenza Types A & B (AMAN) - Final
Nasal Swab Negative for Influenza A & B, NAAT
Negative results must be combined with clinical observations
and patient history.
Nucleic Acid Amplification test (NAAT)performed on the
[employer] platform.
Urine Culture Final 10/09/23-909
CC: Greater than 100,000 CFU/ML Klclementinevera ascorbata
Organism 1 Kluyvera ascorbata
1. Kluyvera ascorbata
M.I.C. RX
--------- ---
Amoxicillin/Potas. Clavulanate 16/8 I
Ampicillin >16 R
Ampicillin/Sulbactam >16/8 R
Cefazolin 16 R
Cefepime <=2 S
Ceftazidime <=1 S
Ceftriaxone <=1 S
Ertapenem <=0.5 S
Ciprofloxacin <=0.25 S
Gentamicin <=4 S
Levofloxacin <=0.5 S
Meropenem <=1 S
Nitrofurantoin-Urine Only <=32 S
Piperacillin/Tazobactam 64 I
Tobramycin <=4 S
Trimethoprim/Sulfamethoxazole >2/38 R
Blood Culture Final 10/10/23
Organism 1 Escherichia coli
1. Escherichia coli
M.I.C. RX
--------- ---
Amoxicillin/Potas. Clavulanate 16 I
Ampicillin >16 R
Ampicillin/Sulbactam >168 R
Cefazolin >16 R
Cefepime <=2 S
Ceftazidime <=1 S
Ceftriaxone <=1 S
Ertapenem <=0.5 S
Ciprofloxacin <=0.25 S
Gentamicin <=4 S
Levofloxacin <=0.5 S
Meropenem <=1 S
Piperacillin/Tazobactam 64 I
Tobramycin <=4 S
Trimethoprim/Sulfamethoxazole > R
Imaging:
10/08/2023 CT abdomen/pelvis without contrast: Urinary bladder wall is thickened suggestive of cystitis. No nephrolithiasis or hydronephrosis noted. No perinephric stranding. Liver is diffusely heterogeneous in attenuation consistent with diffuse
fatty infiltration. Liver is enlarged with nodular contour suggestive of cirrhosis. Splenomegaly is suggestive of portal hypertension. Please see full dictation for additional detail.
[2023-10-12] MEDS: OMNICEF 300 MG PO ×2 (09:49→19:21)
--- NOTE | 2023-10-12 10:36 | PTCARENOTE ---
Pt received from dietary services manager RN. Gayathri3, resting in bed. IV Potassium infusing through R FA PIV per order. NSR on engine monitor. Assessment documented. Transitioned to oral abx per ID. Plan for discharge tomorrow pending AM labs. GI following.
--- NOTE | 2023-10-12 11:52 | W.PN.HOSP.TC ---
Today's Communication/Plan
-
Antibiotics per ID
Continue with prednisone
Await GI recs
Monitor blood pressure and heart rate
Assessment / Plan
Assessment / Plan
#Liver cirrhosis likley 2/2 alcohol abuse
#Jaundice
#Coagulopathy
#Thrombocytopenia
-Abdominal ultrasound showing microlobulated liver border suggestive of cirrhotic morphology
-No previous diagnosis of liver cirrhosis
-Have associated thrombocytopenia/jaundice/transaminitis/coagulopathy
-NH3 wnl . Hep serology non reactive.
-CT abdomen pelvis showed Liver is of diffusely heterogeneous attenuation, overall attenuation is similar to the contents of the gallbladder, consistent with diffuse fatty infiltration. Given heterogeneous attenuation pattern, hepatitis should also
be considered. Liver is enlarged, measuring 26.3 cm in diameter. Nodular contour of the liver, suggestive of cirrhosis. Splenomegaly and multiple splenorenal collaterals, suggestive of portal hypertension. Small amount of pelvic free fluid, which
may be physiologic, but may also represent early ascites. No fluid seen adjacent to the liver or spleen.
-INR with mild improvement. DF improved fortunately. Start prednisolone 40mg daily. Added pepcid.
-IRAD eval for para-not enough fluid for para.
-improvement in AST/ALT
-GI following and d/w with Oscar and requested phosphatidylethanol level-send out.
-GI recs
#Daily Alcohol use disorder with dependence
#Acute Alcohol withdrawal
#Toxic metabolic encephalopathy from Alc withdrawal and sepsis
-Patient drinks half to 1 bottle of vodka every day.� No previous history of withdrawal
-Last reported drink on 10/05 evening.
-Patient tachycardic/delirious/seizures, likely with alcohol withdrawal and off precedex gtt now.
-MSAS/Ativan ordered
-s/p phenobarb protocol regimen due to elevated in LFTs and phenobarb discontinued.
-CT head negative for acute pathology.
-MR brain single small focus of signal alteration in the subcortical white matter of the right parietal lobe, doubtful clinical significance. Otherwise normal MRI of the brain.
-Continue with Thiamine.
-Per neurology continue with [facility] protocol.
#Sepsis from kluyvera UTI and e.coli bacteremia
#Lactic acidosis 2/2 above
-Tachycardic/febrile/Mild leukocytosis
-Blood culture positive E.coli and surveillance culture in lab are negative so far.
-Ceftriaxone discontinued started on cefepime and transitioned to Cefdinir
-CT abdomen pelvis was negative for renal stone obstruction. No nephrolithiasis or hydronephrosis. No significant perinephric stranding.
-ID consulted
#Provoked Seizure episode
-Likely alcohol use and alcohol withdrawal related
-CT head within normal limit
-Keppra stopped.
-s/p MRI
-IV thaimine
-OP f/u with neuro
#Hypomag/Hypophos/Hypokalemia
-replete/monitor
#Non anion gap acidosis likely 2/2 NS
-improved.
#Hypocalcemia 2/2 vit D def
-replete/monitor
-started po supplementation.
Acute hypoxic respiratory insufficiency
-resolved
#Sinus tachycardia with elevated blood pressure
-monitor for now -started low dose lopressor.
DVT PPX -lovenox
Full code
awaiting bed to tele
Anticipated Discharge: Within 24 hours
Subjective/Interval History
-
Date of Service: October 12, 2023
Tolerating diet
Denies abdominal pain
Denies any nausea or vomiting
Denies any tremors
Objective Data
-
Labs:
Laboratory Results
10/12/23
04:45
WBC 6.0
Hgb 11.1 L
Hct 32.0 L
Plt Count 91 L
Sodium 134 L
Potassium 3.0 L
Chloride 102
Carbon Dioxide 25
BUN 10
Creatinine 0.4 L
Glucose 87
Calcium 8.1 L
Total Bilirubin 3.7 H
AST 428 H
ALT 88 H
Alkaline Phosphatase 157 H
Vital Signs:
Vital Signs
Temp Pulse Resp BP Pulse Ox
99.3 F 88 18 146/91 98
10/12/23 07:45 10/12/23 10:00 10/11/23 08:17 10/12/23 08:40 10/11/23 20:42
I&O
10/11/23 10/12/23 10/13/23
06:59 06:59 06:59
Intake Total 2750 / 2750 960 / 960
Balance 2750 / 2750 960 / 960
Physical Exam
-
General: Well Developed and No Apparent Distress
HEENT: Normocephalic, Atraumatic and Moist Mucous Membranes
Respiratory: Clear to Auscultation
Cardiac: Regular Rhythm, S1/S2 and Tachycardic; Negative Murmur, Rub or Gallop
GI: Soft, Nontender, Nondistended and Normal Bowel Sounds; Negative Organomegaly
Rectal: Deferred by Provider
Musculoskeletal: No Clubbing, No Cyanosis and No Edema
Skin: Warm and Jaundice; Negative Rash
Neuro: Awake, Alert, Oriented, AO x 3 and No Motor Deficits; Negative Tremors
Psych: Calm
--- NOTE | 2023-10-12 11:56 | PN.CDI ---
CDI
- -
CDI:
Physician Documentation Request
Admit Date: 10/07/23 12:37
Dear Doctor Octavia,
10/10 stringing machine operator note states 'acute liver failure workup pending'
Hospitalist progress note states 'Has associated thrombocytopenia/jaundice/transaminitis/coagulopathy'
Laboratory Tests
10/07/23
09:23
PT 18.2 H
Total Bilirubin 6.4 H
AST 316 H
ALT 101 H
Alkaline Phosphatase 318 H
Ammonia
10/07/23
10:48
Ammonia 32 H
10/08/23
03:41
Total Bilirubin 5.1 H
AST 211 H
ALT 57 H
Alkaline Phosphatase 209 H
Ammonia 11
10/09/23
03:57
PT 21.9 H
Total Bilirubin 52. H
AST 261 H
ALT 53 H
Alkaline Phosphatase 151 H
Ammonia 45 H
10/10/23
04:50
PT 20.3 H
Total Bilirubin 4.2 H
AST 398 H
ALT 66 H
Alkaline Phosphatase 168 H
Ammonia 33 H
10/11/23
03:37
PT 20.4 H
Total Bilirubin 4.8 H
AST 637 h*
ALT 93 H
Alkaline Phosphatase 184 H
10/12/23
04:45
Total Bilirubin 3.7 H
AST 428 H
ALT 88 H
Alkaline Phosphatase 157 H
Please clarify the following:
____ - acute liver failure is valid diagnosis
____ - acute liver failure was ruled out
____ - Other
Use of terms such as suspected, likely, concern for, or probable (associated with a specific diagnosis that is being evaluated, monitored, or treated as if it exists) are acceptable and can be coded in the inpatient setting, when documented at the
time of discharge.
Thank you,
Tabatha Moreno RN, BSN
CDI Specialist
tiger text
Please use your independent medical judgment in providing your response.
--- NOTE | 2023-10-12 12:14 | W.PN.GI.CBS2 ---
Today's Communication / Plan
-
monitor DF
Assessment / Plan
-
38 yo F admitted with alcoholic hepatitis and acute pancreatitis.� Pt has h/o alcohol abuse, has been drinking a bottle of vodka in 1-2 days, 3-4 days a week, for few years.� DF on admission was 30, which increased to 46 on day #2. Pt also noted to
have E. coli UTI with E. coli bacteremia as she grew this from blood cx.� Her case was discussed with developer analyst at [facility] (Dr. Faraz Watkins) - would prefer to clear bacteremia before starting steroids. Her repeat blood cx was -ve and prednisolone
40 mg started 10/09 evening.� Initially DF improved to 37.8 on 10/10 then increased to 28.8 yesterday on 10/11. Today, her DF improved to 37.7.
At this time recommend to continue to monitor bloodwork in AM - if has continued improvement can consider discharge over weekend.
Needs Lille score calculated on day 7 (Sunday 10/15).
Continue prednisolone.
We discussed the importance of EtOH cessation in detail and I d/w her importance of either going on one-on-one counseling or group to help ensure she remain EtOH free.
Lipase is still elevated but clinically no signs of pancreatitis, pain free, CT 10/08 did not show pancreatitis. No need to follow lipase levels.
I made appt for patient for follow up with Sadie TAPIA 10/25 at 2:[address] Bond and will give patient the info for the appointment tomorrow.
We will continue to follow.
Total Time Spent with Patient (in minutes): 35
Subjective
Subjective
Date of Service: October 12, 2023
No complaints - no pain, nausea/vomiting
Objective
Data Reviewed
Laboratory Data:
Laboratory Results
10/12/23 04:45
10/12/23 04:45
Laboratory Results
PT 20.4 Sec (11.4-14.6) H 10/11/23 03:37
INR 1.76 10/11/23 03:37
APTT 38.3 Sec (23.4-35.0) H 10/07/23 09:23
Phosphorus 2.5 mg/dl (2.5-4.5) 10/09/23 03:58
Magnesium 2.2 mg/dl (1.6-2.3) 10/09/23 03:58
Total Bilirubin 3.7 mg/dl (0.2-1.3) H 10/12/23 04:45
AST 428 U/L (14-36) H 10/12/23 04:45
ALT 88 U/L (0-35) H 10/12/23 04:45
Alkaline Phosphatase 157 U/L (38-126) H 10/12/23 04:45
Amylase 160 U/L (30-110) H 10/12/23 04:45
Lipase 1570 U/L (23-300) H* 10/12/23 04:45
Vital Signs and I&O:
Vital Signs
Temp Pulse Resp BP Pulse Ox
99.3 F 88 18 146/91 98
10/12/23 07:45 10/12/23 10:00 10/11/23 08:17 10/12/23 08:40 10/11/23 20:42
I&O
10/11/23 10/12/23 10/13/23
06:59 06:59 06:59
Intake Total 2750 / 2750 960 / 960
Balance 2750 / 2750 960 / 960
Physical Exam
Physical Exam
HEENT: Other (icteric)
GI: Non Distended and Non Tender
--- NOTE | 2023-10-12 12:29 | CM ---
CM following re: discharge planning.
Discussed in Rounds, reviewed pt's chart, met with pt yesterday. Pt is treating for Liver cirrhosis likely 2/2 alcohol abuse, Daily Alcohol use disorder with dependence, Acute Alcohol withdrawal. Toxic metabolic encephalopathy from Alc withdrawal
and sepsis, continue supportive care.
Pt continues declining meeting with [facility] and/or any inpatient and/or outpatient D&A treatment resources. Pt stated she has [facility] brochure and she will call them if she decided. Support and encouragement offered and provided.
D/C plan: home with anticipated no needs. to transport at discharge.
CM will follow with discharge plan updates as hospitalization progresses
[2023-10-12 13:48] VITALS: BP 132/99
--- NOTE | 2023-10-12 16:00 | PTCARENOTE ---
10/12- Patient transferred and oriented to Unit without issue. AAOX3; Skin=CDI; Telemetry #[id number], NSR at this time. Patient denies any needs at this time.
[2023-10-12 16:17] VITALS: BP 147/91
--- NOTE | 2023-10-12 16:26 | PTCARENOTE ---
Pt transferred to [address] [place] [address]1. Report called to ETELVINA Noel.
[2023-10-12 19:05] VITALS: BP 137/91
[2023-10-12 22:59] VITALS: BP 144/99
[2023-10-13 03:00] VITALS: BP 141/98
[2023-10-13 06:32] LABS: % Basophils 1.1 % (0-2); % Eosinophils 1.4 % (0-6); % Immature Granulocytes 0.9 % (0-0.5); % Lymphocytes 38.6 % (20.5-51.1); % Monocytes 14.6 % (1.7-9.3); % Neutrophils 43.4 % (42.2-75.2); Absolute Basophils 0.1 10^3/uL (0-0.2); Absolute Eosinophils 0.1 10^3/uL (0-0.7); Absolute Immature Granulocytes 0.1 10^3/uL (0-0.05); Absolute Lymphocytes 2.2 10^3/uL (1.2-3.4); Absolute Monocytes 0.8 10^3/uL (0.1-0.6); Absolute Neutrophils 2.5 10^3/uL (1.4-6.5); Hematocrit 34.5 % (37.0-47.0); Hemoglobin 11.7 g/dL (12.0-16.0); Mean Corp Hgb Conc. 33.9 g/dL (33.0-37.0); Mean Corpuscular Hgb 31.2 pg (27.0-31.0); Mean Platelet Volume 11.7 fL (7.4-10.4); Nucleated Red Blood Cells % 0 %; Platelet Count 102 10^3/uL (130-400); Red Blood Cell Count 3.75 10^6/uL (4.20-5.40); Red Cell Dist. Width 17.4 % (11.5-14.5); White Blood Cell Count 5.7 10^3/uL (4.8-10.8)
[2023-10-13 06:48] LABS: INR 1.49; PT 17.8 Sec (11.4-14.6)
[2023-10-13 06:49] LABS: APTT 34.6 Sec (23.4-35.0)
[2023-10-13 07:10] LABS: ALT (SGPT) 90 U/L (0-35); AST (SGOT) 293 U/L (14-36); Albumin 2.9 g/dl (3.5-5.0); Alkaline Phosphatase 167 U/L (38-126); Blood Urea Nitrogen 9 mg/dl (7-17); Calcium 8.2 mg/dl (8.4-10.2); Carbon Dioxide 29 mmol/L (22-30); Chloride 103 mmol/L (98-107); Estimated Creatinine Clearance > 125 ml/min; Glucose 79 mg/dl (70-99); Potassium 3.8 mmol/L (3.5-5.1); Sodium 136 mmol/L (135-145); Total Bilirubin 3.7 mg/dl (0.2-1.3); Total Protein 6.4 g/dl (6.3-8.2); eGFR > 60.00
[2023-10-13 07:55] VITALS: BP 152/92
[2023-10-13] MEDS: VITAMIN B1 100 MG PO (08:16)
[2023-10-13] MEDS: DUPHALAC/CHRONULAC 20 GRAMS PO (08:16)
[2023-10-13] MEDS: PEPCID 20 MG PO (08:17)
[2023-10-13] MEDS: OMNICEF 300 MG PO (08:17)
[2023-10-13] MEDS: LOPRESSOR 12.5 MG PO (08:18)
[2023-10-13] MEDS: FOLVITE 1 MG PO (08:18)
[2023-10-13] MEDS: THERAGRAN 1 TABLET PO (08:18)
[2023-10-13] MEDS: VITAMIN D3 (cholecalciferol) 125 MCG PO (08:18)
[2023-10-13] MEDS: HEPARIN SC ×2 (08:19→08:29)
[2023-10-13] MEDS: PRELONE 40 MG PO (08:24)
--- NOTE | 2023-10-13 10:33 | W.PN.GI.CBS2 ---
Today's Communication / Plan
-
bloodwork outpatient, continue prednisolone, ok dc gi pov
Assessment / Plan
-
38 yo F admitted with alcoholic hepatitis and acute pancreatitis.� Pt has h/o alcohol abuse, has been drinking a bottle of vodka in 1-2 days, 3-4 days a week, for few years.� DF on admission was 30, which increased to 46 on day #2. Pt also noted to
have E. coli UTI with E. coli bacteremia as she grew this from blood cx.� Her case was discussed with consultant dietitian at [facility] (Dr. Faraz Watkins) - would prefer to clear bacteremia before starting steroids. Her repeat blood cx was -ve and prednisolone
40 mg started 10/09 evening.� Initially DF improved to 37.8 on 10/10 then increased to 28.8 yesterday on 10/11. Yesterday DF 37.7; today 25.8.
Needs Lille score calculated on day 7 (Sunday 10/15) - I gave pt script for bloodwork
Continue prednisolone.
OK D/C GI POV - will sign off pls call with ?s
Subjective
Subjective
Date of Service: October 13, 2023
Feels well no complaints
Objective
Data Reviewed
Laboratory Data:
Laboratory Results
10/13/23 06:11
10/13/23 06:11
Laboratory Results
PT 17.8 Sec (11.4-14.6) H 10/13/23 06:11
INR 1.49 10/13/23 06:11
APTT 34.6 Sec (23.4-35.0) 10/13/23 06:11
Phosphorus 2.5 mg/dl (2.5-4.5) 10/09/23 03:58
Magnesium 2.2 mg/dl (1.6-2.3) 10/09/23 03:58
Total Bilirubin 3.7 mg/dl (0.2-1.3) H 10/13/23 06:11
AST 293 U/L (14-36) H 10/13/23 06:11
ALT 90 U/L (0-35) H 10/13/23 06:11
Alkaline Phosphatase 167 U/L (38-126) H 10/13/23 06:11
Amylase 160 U/L (30-110) H 10/12/23 04:45
Lipase 1570 U/L (23-300) H* 10/12/23 04:45
Vital Signs and I&O:
Vital Signs
Temp Pulse Resp BP Pulse Ox
99.0 F 78 16 152/92 95
10/13/23 07:55 10/13/23 07:55 10/13/23 07:55 10/13/23 07:55 10/13/23 07:55
I&O
10/12/23 10/13/23 10/14/23
06:59 06:59 06:59
Intake Total 960 / 960 960 / 960
Balance 960 / 960 960 / 960
Physical Exam
Physical Exam
HEENT: Other (icteric)
GI: Non Distended and Non Tender
--- NOTE | 2023-10-13 11:10 | W.PN.HOSP.TC ---
Today's Communication/Plan
-
Continue statin
Continue to biotic
Lopressor
Thiamine
DC home
Assessment / Plan
Assessment / Plan
#Liver cirrhosis likley 2/2 alcohol abuse
#Jaundice
#Coagulopathy
#Thrombocytopenia
# Acute alcoholic hepatitis/liver failure
-Abdominal ultrasound showing microlobulated liver border suggestive of cirrhotic morphology
-No previous diagnosis of liver cirrhosis
-Have associated thrombocytopenia/jaundice/transaminitis/coagulopathy
-NH3 wnl . Hep serology non reactive.
-CT abdomen pelvis showed Liver is of diffusely heterogeneous attenuation, overall attenuation is similar to the contents of the gallbladder, consistent with diffuse fatty infiltration. Given heterogeneous attenuation pattern, hepatitis should also
be considered. Liver is enlarged, measuring 26.3 cm in diameter. Nodular contour of the liver, suggestive of cirrhosis. Splenomegaly and multiple splenorenal collaterals, suggestive of portal hypertension. Small amount of pelvic free fluid, which
may be physiologic, but may also represent early ascites. No fluid seen adjacent to the liver or spleen.
-INR with mild improvement. DF improved fortunately. Start prednisolone 40mg daily. Added pepcid.
-IRAD eval for para-not enough fluid for para.
-improvement in AST/ALT and bili and INR.
-OP blood work Rx provided per GI.
-GI following and d/w with Oscar and requested phosphatidylethanol level-send out. Still pending-f/u as OP
-GI recs
#Daily Alcohol use disorder with dependence
#Acute Alcohol withdrawal
#Toxic metabolic encephalopathy from Alc withdrawal and sepsis
-Patient drinks half to 1 bottle of vodka every day.� No previous history of withdrawal
-Last reported drink on 10/05 evening.
-Patient tachycardic/delirious/seizures, likely with alcohol withdrawal and off precedex gtt now.
-MSAS/Ativan ordered
-s/p phenobarb protocol regimen due to elevated in LFTs and phenobarb discontinued.
-CT head negative for acute pathology.
-MR brain single small focus of signal alteration in the subcortical white matter of the right parietal lobe, doubtful clinical significance. Otherwise normal MRI of the brain.
-Continue with Thiamine.
-Per neurology continue with [facility] protocol.
#Sepsis from kluyvera UTI and e.coli bacteremia
#Lactic acidosis 2/2 above
-Tachycardic/febrile/Mild leukocytosis
-Blood culture positive E.coli and surveillance culture in lab are negative so far.
-Ceftriaxone discontinued started on cefepime and transitioned to Cefdinir till 10/18/23
-CT abdomen pelvis was negative for renal stone obstruction. No nephrolithiasis or hydronephrosis. No significant perinephric stranding.
-ID consulted
#Provoked Seizure episode
-Likely alcohol use and alcohol withdrawal related
-CT head within normal limit
-Keppra stopped.
-s/p MRI
-IV thaimine
-OP f/u with neuro
#Hypomag/Hypophos/Hypokalemia
-replete/monitor
#Non anion gap acidosis likely 2/2 NS
-improved.
#Hypocalcemia 2/2 vit D def
-replete/monitor
-started po supplementation.
Acute hypoxic respiratory insufficiency
-resolved
#Sinus tachycardia with elevated blood pressure
-monitor for now -started low dose lopressor.
DVT PPX -lovenox
Full code
d/w with GI.
More than 30 minutes spent in discharge including
Final examination of the patient
Summarizing hospital stay
Instructions for continuing care to all relevant caregivers
Preparation of discharge records, prescriptions, and referral forms
Total time spent (in minutes): 52
Anticipated Discharge: Today
Subjective/Interval History
-
Date of Service: October 13, 2023
Tolerating diet. Denies abdominal pain
Denies lightheadedness or dizziness
Heart rate well-controlled
Objective Data
-
Labs:
Laboratory Results
10/13/23
06:11
WBC 5.7
Hgb 11.7 L
Hct 34.5 L
Plt Count 102 L
PT 17.8 H
INR 1.49
APTT 34.6
Sodium 136
Potassium 3.8 D
Chloride 103
Carbon Dioxide 29
BUN 9
Creatinine 0.5 L
Glucose 79
Calcium 8.2 L
Total Bilirubin 3.7 H
AST 293 H
ALT 90 H
Alkaline Phosphatase 167 H
Vital Signs:
Vital Signs
Temp Pulse Resp BP Pulse Ox
99.0 F 78 16 152/92 95
10/13/23 07:55 10/13/23 07:55 10/13/23 07:55 10/13/23 07:55 10/13/23 07:55
I&O
10/12/23 10/13/23 10/14/23
06:59 06:59 06:59
Intake Total 960 / 960 960 / 960
Balance 960 / 960 960 / 960
Physical Exam
-
General: Well Developed and No Apparent Distress
HEENT: Normocephalic, Atraumatic and Moist Mucous Membranes
Respiratory: Clear to Auscultation
Cardiac: Regular Rhythm, S1/S2 and Tachycardic; Negative Murmur, Rub or Gallop
GI: Soft, Nontender, Nondistended and Normal Bowel Sounds; Negative Organomegaly
Rectal: Deferred by Provider
Musculoskeletal: No Clubbing, No Cyanosis and No Edema
Skin: Warm and Jaundice; Negative Rash
Neuro: Awake, Alert, Oriented, AO x 3 and No Motor Deficits; Negative Tremors
Psych: Calm
--- NOTE | 2023-10-13 11:21 | W.DCSUMMARY ---
Discharge Summary
Discharge Data
Date of Admission: 10/07/23
Date of Discharge: 10/13/23
-
Pending Results: No
Hospital Course
38-year-old female past medical history of alcohol abuse who presented with episode of provoked seizure from home. Neurology was consulted. Patient was admitted to the medical ICU. CT of the head was done which is negative for acute pathology.
Patient was started on severe alcohol withdrawal protocol as patient with high alcohol intake at home. Patient was started on CIWA protocol. Phenobarbital protocol. Patient also required Precedex drip. Patient with severely abnormal LFTs and
gastroenterology discussed with buttonholer at [place]. Patient was also found to have sepsis from urinary tract infection and E. coli bacteremia. Infectious disease was consulted and antibiotics were managed by infectious disease. CT abdomen
pelvis was negative for acute renal stone obstruction. No hydronephrosis. Patient surveillance cultures cleared and patient started to stabilize. Phenobarbital was discontinued due to persistent elevated LFTs. Precedex drip was eventually
discontinued. Patient mentation improved and she was tolerating diet. MRI of the brain was performed MR brain single small focus of signal alteration in the subcortical white matter of the right parietal lobe, doubtful clinical significance.�
Otherwise normal MRI of the brain. Neurology recommended against starting any antiepileptic medications. Patient electrolytes were replaced and repleted. Patient was also found to elevated blood pressure with sinus tachycardia and was started on
Lopressor. Patient with elevated Madrey factor started on prednisolone. Patient with continued steroids for 40 days. Patient will require repeat labs on 10/15 and labs stable provided by weigher and grader. Patient was tolerating diet and vital
signs were stable and she was discharged home with recommendation to follow-up blood work and follow-up with weigher and grader and buttonholer as outpatient. During hospitalization patient was counseled multiple times by myself and other
specialists for complete alcohol cessation.
Discharge Plan
-
Patient Disposition: Home (Routine Discharge)
Discharge Diagnosis/Procedures: Acute alcoholic hepatitis/failure
Jaundice
Coagulopathy
Thrombocytopenia
Acute alcohol disorder
Acute alcohol withdrawal
Toxic metabolic encephalopathy
Sepsis from urinary tract infections and bacteremia
Lactic acidosis
Tachycardia with elevated blood pressure
Provoked seizure
Hypomagnesemia
Hypophosphatemia
Hypokalemia
Anion gap acidosis
Hypocalcemia
Acute hypoxic respiratory insufficiency
Condition: Fair
Diet: Low Fat
Activity: With assistance and As tolerated
Driving Restrictions: As prior to admission
Blood Work: Prescription as provided by weigher and grader
Instructions: Binge Drinking, Alcohol Use Disorder ED, BLOOD PRESSURE
Referrals:
NONE,* [Family Provider] - in less than 1 week (Follow-up for blood pressure management with primary doctor in 1 week.)
Janee Bond MD [Active] - (will need GI follow up in 3-4 weeks. Avoid all Alcohol. Pt will need labs 10/16 to check if response to steroids. )
Adelso Marquez MD [Non-Admitting Privileges] - (call to schedule hepatology follow up after admission)
Sadie Portillo PA-C [Specified Professional Personl] - 10/26/23 9:30 am (Please call to reschedule if you can not keep this appointment. If your insurance requires a referral please contact your primary care physician prior to your appointment. )
Prescriptions:
New
lactulose 20 gram/30 mL Solution
20 g PO DAILY 30 Days Qty: 900 0RF
folic acid 1 mg Tablet
1 mg PO DAILY Qty: 30 0RF
prednisolone sodium phosphate 15 mg/5 mL (3 mg/mL) Solution
40 mg PO DAILY 30 Days Qty: 400 0RF
famotidine 20 mg Tablet
20 mg PO DAILY 30 Days Qty: 30 0RF
cefdinir 300 mg Capsule
300 mg PO Q12 6 Days Qty: 12 0RF
metoprolol tartrate 25 mg Tablet
12.5 mg PO BID 30 Days Qty: 30 0RF
thiamine HCl (vitamin B1) 100 mg Tablet
100 mg PO BID Qty: 30 0RF
cholecalciferol (vitamin D3) 125 mcg (5,000 unit) Tablet
125 mcg PO DAILY 30 Days Qty: 30 0RF
Discharge Orders:
Discharge Patient (As Directed); Ordered 10/13/23
Ordered By: Dhruv Dudley
Discharge Date and Time
Discharge Date/Time: 10/13/23 12:00
--- NOTE | 2023-10-13 13:40 | CM ---
CM reviewed chart, patient discharge home with , no needs. CM will continue to follow for discharge planning needs.
Plan; home with .
== END 2023-10-13 12:00 | disposition home or self-care (01) | DRG 871 ==
LOC: 4 WEST ACU 12:37
PROVIDERS: Internal Medicine Critical Care Medicine; Nurse Practitioner Adult Health; Nurse Practitioner Family; Psychiatry & Neurology Neurology; ADMITTING PHYSICIAN Hospitalist; ATTENDING PHYSICIAN Hospitalist; CONSULT PHYSICIAN Internal Medicine Critical Care Medicine; CONSULT PHYSICIAN Internal Medicine Gastroenterology; CONSULT PHYSICIAN Internal Medicine Infectious Disease; CONSULT PHYSICIAN Psychiatry & Neurology Neurology; EMERGENCY PHYSICIAN Emergency Medicine
DX: A41.51 Sepsis due to Escherichia coli [E. coli] (principal); G92.8 Other toxic encephalopathy; K85.20 Alcohol induced acute pancreatitis without necrosis or infection; N39.0 Urinary tract infection, site not specified; D68.4 Acquired coagulation factor deficiency; E87.20 Acidosis, unspecified; F10.239 Alcohol dependence with withdrawal, unspecified; E66.9 Obesity, unspecified; R56.9 Unspecified convulsions; M54.50 Low back pain, unspecified; K70.10 Alcoholic hepatitis without ascites; K70.40 Alcoholic hepatic failure without coma; K74.60 Unspecified cirrhosis of liver; K82.8 Other specified diseases of gallbladder; G47.33 Obstructive sleep apnea (adult) (pediatric); S01.512A Laceration without foreign body of oral cavity, initial encounter; E83.51 Hypocalcemia; R09.02 Hypoxemia; R06.89 Other abnormalities of breathing; R03.0 Elevated blood-pressure reading, without diagnosis of hypertension; B96.89 Other specified bacterial agents as the cause of diseases classified elsewhere; D69.59 Other secondary thrombocytopenia; E83.39 Other disorders of phosphorus metabolism; E87.6 Hypokalemia; E83.42 Hypomagnesemia; Z11.52 Encounter for screening for COVID-19; Z68.33 Body mass index [BMI] 33.0-33.9, adult
CPT/HCPCS: 70450; 70551; 70553; 71046; 74176; 76700; 80048; 80053; 80061; 80143; 80184; 80306; 81003; 81015; 82010; 82077; 82140; 82150; 82248; 82306; 82390; 82550; 82607; 82728; 82746; 82784; 82977; 83516; 83540; 83550; 83605; 83615; 83690; 83735; 84100; 84443; 84480; 84703; 85025; 85027; 85610; 85730; 86015; 86376; 86706; 86803; 87040; 87077; 87086; 87149; 87186; 87205; 87340; 87389; 87502; 87811; 93005; 95816; 99291; A9575

== ENCOUNTER → 2023-10-15 12:00 | Outpatient (REF) | payer OTHER, SELFPAY ==
[2023-10-15 13:23] LABS: % Basophils 0.9 % (0-2); % Eosinophils 0.4 % (0-6); % Immature Granulocytes 1.2 % (0-0.5); % Lymphocytes 14.6 % (20.5-51.1); % Monocytes 6.8 % (1.7-9.3); % Neutrophils 76.1 % (42.2-75.2); Absolute Basophils 0.1 10^3/uL (0-0.2); Absolute Immature Granulocytes 0.1 10^3/uL (0-0.05); Absolute Monocytes 0.5 10^3/uL (0.1-0.6); Absolute Neutrophils 5.2 10^3/uL (1.4-6.5); Hematocrit 36.9 % (37.0-47.0); Hemoglobin 12.7 g/dL (12.0-16.0); Mean Corp Hgb Conc. 34.4 g/dL (33.0-37.0); Mean Corpuscular Hgb 31.4 pg (27.0-31.0); Mean Corpuscular Volume 91.3 fL (81.0-99.0); Mean Platelet Volume 11.8 fL (7.4-10.4); Nucleated Red Blood Cells % 0 %; Platelet Count 164 10^3/uL (130-400); Red Blood Cell Count 4.04 10^6/uL (4.20-5.40); Red Cell Dist. Width 17.8 % (11.5-14.5); White Blood Cell Count 6.8 10^3/uL (4.8-10.8)
[2023-10-15 13:35] LABS: INR 1.58; PT 18.7 Sec (11.4-14.6)
[2023-10-15 13:37] LABS: APTT 31.6 Sec (23.4-35.0)
[2023-10-15 14:54] LABS: ALT (SGPT) 99 U/L (0-35); AST (SGOT) 203 U/L (14-36); Albumin 3.5 g/dl (3.5-5.0); Alkaline Phosphatase 180 U/L (38-126); Blood Urea Nitrogen 7 mg/dl (7-17); Calcium 8.7 mg/dl (8.4-10.2); Carbon Dioxide 25 mmol/L (22-30); Chloride 101 mmol/L (98-107); Direct Bilirubin 3.5 mg/dl (0.0-0.4); Glucose 171 mg/dl (70-99); Sodium 133 mmol/L (135-145); Total Bilirubin 5.1 mg/dl (0.2-1.3); Total Protein 7.4 g/dl (6.3-8.2); eGFR > 60.00
== END ==
LOC: REG 12:00
PROVIDERS: ATTENDING PHYSICIAN Internal Medicine Gastroenterology
DX: K70.10 Alcoholic hepatitis without ascites (principal)
CPT/HCPCS: 36415; 80053; 82248; 85025; 85610; 85730

== ENCOUNTER → 2023-12-12 18:37 | Outpatient (REF) | payer OTHER, SELFPAY | LOC: MRI 18:37 | PROVIDERS: ATTENDING PHYSICIAN Physician Assistant; FAMILY PHYSICIAN Nurse Practitioner Primary Care | DX: K70.10 Alcoholic hepatitis without ascites (principal) | CPT/HCPCS: 74183; A9581 ==

== ENCOUNTER → 2023-12-20 06:19 | Day surgery (SDC) | payer OTHER, SELFPAY | LOC: GI 06:19 | PROVIDERS: ATTENDING PHYSICIAN Internal Medicine Gastroenterology | DX: K74.60 Unspecified cirrhosis of liver (principal); K76.6 Portal hypertension; I85.10 Secondary esophageal varices without bleeding; K31.89 Other diseases of stomach and duodenum; Q39.9 Congenital malformation of esophagus, unspecified | CPT/HCPCS: 43239; 88305; 88342 ==

== ENCOUNTER → 2024-01-25 09:20 | Outpatient (REF) | payer OTHER, SELFPAY ==
[2024-01-25 10:36] LABS: ALT (SGPT) 31 U/L (0-35); AST (SGOT) 70 U/L (14-36); Albumin 4.5 g/dl (3.5-5.0); Alkaline Phosphatase 181 U/L (38-126); Blood Urea Nitrogen 10 mg/dl (7-17); Calcium 9.7 mg/dl (8.4-10.2); Carbon Dioxide 23 mmol/L (22-30); Chloride 105 mmol/L (98-107); Direct Bilirubin 0.7 mg/dl (0.0-0.4); Glucose 86 mg/dl (70-99); Potassium 4.8 mmol/L (3.5-5.1); Sodium 137 mmol/L (135-145); Total Bilirubin 1.2 mg/dl (0.2-1.3); Total Protein 8.6 g/dl (6.3-8.2); eGFR > 60.00
[2024-01-25 11:09] LABS: AFP Male/Tumor Marker 6.22 ng/ml
[2024-01-25 14:07] LABS: Hepatitis A Antibody, Total Negative (Negative)
[2024-01-26 16:44] LABS: Alpha-1-Antitrypsin 214 mg/dL (90-200)
[2024-01-27 03:12] LABS: F-Actin Antibody IgG 8 Units (0-19); Mitochondrial M2 Ab, IgG 2.8 Units (0.0-24.9)
[2024-01-27 03:24] LABS: ANA, IgG Reflex to HEp-2 None Detected (None Detected)
== END ==
LOC: REG 09:20
PROVIDERS: ATTENDING PHYSICIAN Internal Medicine Gastroenterology; FAMILY PHYSICIAN Physician Assistant; REFERRING PHYSICIAN Nurse Practitioner Adult Health
DX: K70.10 Alcoholic hepatitis without ascites (principal); E51.9 Thiamine deficiency, unspecified
CPT/HCPCS: 36415; 80053; 82103; 82105; 82248; 84425; 86015; 86038; 86381; 86708

== ENCOUNTER → 2024-01-28 13:22 | Outpatient (REF) | payer OTHER, SELFPAY ==
[2024-01-28 14:47] LABS: % Basophils 1.2 % (0-2); % Immature Granulocytes 0.1 % (0-0.5); % Monocytes 10.3 % (1.7-9.3); % Neutrophils 29.4 % (42.2-75.2); Absolute Basophils 0.1 10^3/uL (0-0.2); Absolute Eosinophils 0.1 10^3/uL (0-0.7); Absolute Lymphocytes 3.9 10^3/uL (1.2-3.4); Absolute Monocytes 0.7 10^3/uL (0.1-0.6); Hematocrit 39.5 % (37.0-47.0); Mean Corp Hgb Conc. 32.9 g/dL (33.0-37.0); Mean Corpuscular Hgb 30.6 pg (27.0-31.0); Mean Corpuscular Volume 92.9 fL (81.0-99.0); Mean Platelet Volume 11.6 fL (7.4-10.4); Nucleated Red Blood Cells % 0 %; Platelet Count 121 10^3/uL (130-400); Red Blood Cell Count 4.25 10^6/uL (4.20-5.40); Red Cell Dist. Width 13.3 % (11.5-14.5); White Blood Cell Count 6.9 10^3/uL (4.8-10.8)
[2024-01-28 14:48] LABS: INR 1.26; PT 15.6 Sec (11.4-14.6)
[2024-01-28 15:02] LABS: IgA 644 mg/dl (70-400)
[2024-01-28 15:03] LABS: Iron 114 ug/dl (37-170)
[2024-01-28 15:12] LABS: Percent Saturation 28 % (20-50); Total Iron Binding Capacity 398 ug/dl (265-497)
[2024-01-28 15:30] LABS: Ferritin 67.8 ng/ml (6.24-137)
[2024-01-30 15:13] LABS: tTG IgA Antibody 5.7 EU/ml (0-19); tTG IgG Antibody 17.2 EU/ml (0-19)
[2024-01-30 15:32] LABS: Ceruloplasmin 26 mg/dL (16-45)
== END ==
LOC: REG 13:22
PROVIDERS: ATTENDING PHYSICIAN Internal Medicine Gastroenterology; FAMILY PHYSICIAN Nurse Practitioner Primary Care
DX: K74.60 Unspecified cirrhosis of liver (principal)
CPT/HCPCS: 36415; 82390; 82728; 82784; 83516; 83540; 83550; 85025; 85610; 86231

== ENCOUNTER → 2024-11-10 07:16 | Outpatient (REF) | payer OTHER, SELFPAY | LOC: HWRAD 07:16 | PROVIDERS: ATTENDING PHYSICIAN Internal Medicine Gastroenterology; FAMILY PHYSICIAN Nurse Practitioner Primary Care; REFERRING PHYSICIAN Internal Medicine Transplant Hepatology | DX: K70.10 Alcoholic hepatitis without ascites (principal); K74.60 Unspecified cirrhosis of liver; F10.10 Alcohol abuse, uncomplicated | CPT/HCPCS: 76700 ==

== ENCOUNTER 2025-05-12 21:36 | Observation (INO) | payer OTHER, SELFPAY ==
[2025-05-12 16:10] VITALS: BP 133/91
[2025-05-12 16:30] LABS: Hematocrit 41.1 % (37.0-47.0); Hemoglobin 14.3 g/dL (12.0-16.0); Mean Corp Hgb Conc. 34.8 g/dL (33.0-37.0); Mean Corpuscular Volume 100.2 fL (81.0-99.0); Nucleated Red Blood Cells % 0 %; Platelet Count 155 10^3/uL (130-400); Red Cell Dist. Width 14.7 % (11.5-14.5)
[2025-05-12 16:42] LABS: HCG, Serum Qualitative Screen Negative
[2025-05-12 16:46] LABS: APTT 35.5 Sec (23.4-35.0); INR 1.71; PT 20.2 Sec (11.4-14.6)
[2025-05-12 16:49] LABS: ALT (SGPT) 57 U/L (0-35); AST (SGOT) 209 U/L (14-36); Albumin 3.5 g/dl (3.5-5.0); Alkaline Phosphatase 189 U/L (38-126); Blood Urea Nitrogen 10 mg/dl (7-17); Calcium 8.7 mg/dl (8.4-10.2); Carbon Dioxide 23 mmol/L (22-30); Chloride 104 mmol/L (98-107); Glucose 110 mg/dl (70-99); Potassium 4.1 mmol/L (3.5-5.1); Sodium 135 mmol/L (135-145); Total Protein 8.3 g/dl (6.3-8.2); eGFR > 60.00
[2025-05-12 18:00] VITALS: BP 121/89; BMI 30.9
--- NOTE | 2025-05-12 18:07 | ED.GENMED ---
History of Present Illness
General
Chief Complaint: Abnormal Lab Value
Source: patient
Exam Limitations: none
Time Seen by Provider: 05/12/25 18:04
Nursing documentation reviewed up to this point in time: agreed with
History of Present Illness
History of Present Illness:
39-year-old female with history of alcohol abuse, history of severely abnormal LFTs, jaundice, thrombocytopenia, toxic metabolic encephalopathy, states she has not had any alcohol since September 2023.
Presents upon the recommendation of her primary care physician after a routine comprehensive blood test revealed elevated bilirubin levels of 15 mg/dL. about 10 days ago. Patient initially delayed seeking care to monitor her symptoms. However, she
reports experiencing persistent bloating, cramping, and abdominal pressure for about a week. The patient also feels worn down and fatigued. Additionally, she reports a cough that varies between a dry cough with a tickle sensation in her throat and a
cough that feels like something is stuck in her throat. Although she does not experience shortness of breath, she occasionally feels unable to take a full breath of air.
She recently completed a 5-day course of Nitrofurantoin for a urinary tract infection (UTI), finishing the regimen this morning.
For the past week, she's had soft, mushy, but typically normally colored stools and denies any diarrhea or light-colored stools. She denies any drug use.
Denies fever/chills/n/v.
Past History
Past History
ED Past Medical History: None
ED Past Surgical History: Gynecological (Ectopic pregnancies with removal of left fallopian tube)
Social History
Tobacco: Non-smoker
Alcohol: Binge drinker
Drug: None
Personal:
Living: with family
Review of Systems
Review of Systems
Allergies reviewed?: Yes
All Other Systems: ROS reviewed and negative except as documented in HPI and ROS
Phy Exam
Physical Exam
Physical Exam:
GENERAL: No acute distress. A&Ox3.
CONSTITUTIONAL: Afebrile.
EYES: clear, conjunctivae icteric
ENMT: moist mucus membranes, Pharynx nl
RESPIRATORY: Regular respirations, nonlabored, lungs clear.
CARDIOVASCULAR: Regular rate and rhythm, no murmurs, no rubs.
GI: Soft, mildly distended, nontender, normal BS
MUSCULOSKELETAL: Moves with ease. Well perfused.
SKIN: Warm, dry, man
PSYCH: Normal mood and affect. Well kept, interactive and appropriate
NEUROLOGIC: Awake, alert and oriented. No focal neurological deficits
Course
Orders/Labs/Results
Orders:
Orders
05/12/25 16:09
Electrocardiogram (*1) Urgent
Reason for Study: Tachycardia
05/12/25 16:10
EKG- Treatment ONCE
Test Result ONCE
05/12/25 16:14
Acetaminophen Urgent
Comment: ADD ON
Complete Blood Count/With Diff Urgent
Comprehensive Metabolic Panel Urgent
Direct Bilirubin Urgent
Comment: ADD ON
HCG, Serum Qualitative Screen Urgent
Lipase Urgent
Comment: ADD ON
PT/INR [Prothrombin Time] Urgent
Is patient on Coumadin/Warfarin?: No
Comment: [email or web address]
PTT Urgent
05/12/25 18:13
US Abdomen Complete/Upper Urgent
Comment:
Reason For Exam: jaudice, transaminitis
05/12/25 18:14
0.9% Sodium Chloride 1000 ml [Nss] 1,000 ml IV BOLUS
05/12/25 19:04
CR Chest - 2 Views Urgent
Comment:
Reason For Exam: Cough
05/12/25 19:17
Urinalysis Reflex To Culture Urgent
Date Specimen was Collected: 05/12/25
Time Specimen was Collected: 19:13
Urine Microscopic Reflex Cult Urgent
Urine Culture Urgent
LILIBETH Source: U
Specimen Description:
Date Specimen was Collected: 05/12/25
Time Specimen was Collected: 19:13
05/12/25 19:21
Hepatitis A Antibody, Total Urgent
Hepatitis B Core Ab, Total Urgent
Hepatitis B Surface Antibody Urgent
Hepatitis B Surface Antigen Urgent
Hepatitis C Antibody Urgent
05/12/25 19:22
Hepatitis A IgM Antibody Urgent
Hepatitis B Core Ab, IgM Urgent
05/12/25 19:48
Add On- LAB Urgent
Tests Added?: acetaminophen
05/12/25 19:55
GASTROINTESTINAL CONSULT Urgent
Consulting Provider: Kishore Birmingham
Was physician already notified: Yes
Reason for consult: Hepatic cirrhosis, portal hypertension, spjlenomegaly, mild ascites
05/12/25 20:59
Add On- LAB Stat
Tests Added?: lipase, direct bilirubin
05/12/25 21:04
Add On- LAB Stat
Tests Added?: ammonia level
05/12/25 21:12
Admit/Transfer Patient As Directed
Co-Sign Provider:
Level of Care: Observation services
Assign to:: Medical/Surgical
Physician / Group: Monalisa
Diagnosis: liver cirrhosis
PRN Pain Medication Management As Directed
May give lesser potent ordered pain med per pt: Yes
preference::
Protocol:: Medication orders for pain may be administered in a
manner that supports deferring to patient preference
when the pt is:
- Requesting an ordered lesser potent pain medication.
Least to most potent pain medications are defined
as: acetaminophen < NSAID < tramadol < opioids
(morphine, oxycodone, hydromorphone).
- Requesting a lesser dose of the same medication IF
ORDERED.
- Requesting a less intrusive route of administration
if both routes are prescribed by the provider (PO <
IV).
05/12/25 21:13
Code Status As Directed
Resuscitation Status: Full Code
05/12/25 21:17
Ammonia Urgent
05/12/25 22:30
Acetaminophen [Tylenol] 650 mg PO Q4HPRN PRN
Bisacodyl [Dulcolax] 10 mg RECTAL [id number] PRN
Docusate W/Senna [Senokot-S] 1 tablet PO BIDPRN PRN
HYDROmorphone [Dilaudid] 0.5 mg IV Q4HPRN PRN
Ondansetron Injectable [Zofran] 4 mg IV Q6HPRN PRN
Polyethylene Glycol Powder [Miralax] 17 grams PO DAILYPRN PRN
05/12/25 22:30
Activity As Directed
Activity Level: With Assistance
Pneumatic Compression Sleeves As Directed
Type: Knee high
Vital Signs As Directed
Frequency: Per unit guidelines
DX Deep Vein Thrombosis Video Routine
05/13/25 Breakfast
Regular
Basic Metabolic Panel IN AM
Folate IN AM
LFT [Xkbde-Mfyd-Qzxiqgr] IN AM
Vitamin B12 IN AM
05/13/25 08:00
Lactobac/Bifidobac [Visbiome] 1 cap PO DAILY
Multivitamin [Theragran] 1 tablet PO DAILY
Abnormal Lab Results
05/12/25 05/12/25 05/12/25
16:14 19:17 21:17
RBC 4.10 L 10^6/uL
(4.20-5.40)
MCV 100.2 H fL
(81.0-99.0)
MCH 34.9 H pg
(27.0-31.0)
RDW 14.7 H %
(11.5-14.5)
MPV 11.9 H fL
(7.4-10.4)
Absolute Neuts (auto) 7.0 H 10^3/uL
(1.4-6.5)
Absolute Monos (auto) 1.0 H 10^3/uL
(0.1-0.6)
Lymphocytes % 18.2 L %
(20.5-51.1)
Monocytes % 9.5 H %
(1.7-9.3)
PT 20.2 H Sec
(11.4-14.6)
APTT 35.5 H Sec
(23.4-35.0)
Glucose 110 H mg/dl
(70-99)
Total Bilirubin 10.2 H mg/dl
(0.2-1.3)
Direct Bilirubin 7.4 H mg/dl
(0.0-0.4)
AST 209 H U/L
(14-36)
ALT 57 H U/L
(0-35)
Alkaline Phosphatase 189 H U/L
(38-126)
Ammonia < 9 L umol/L
(9-30)
Total Protein 8.3 H g/dl
(6.3-8.2)
Urine Ketones 2+ A
(Negative)
Ur Occult Blood Reflex 1+ A
(Negative)
Urine Bilirubin 3+ A
(Negative)
Urine Urobilinogen 4+ A
(Neg - 1+)
Leukocyte Esterase Rfl 1+ A
(Negative)
Urine Bacteria (Reflex) Few A
(Negative)
Urine Albumin (Reflex) 2+ A
(Neg - Trace)
Acetaminophen < 10 L ug/ml
(10-30)
05/12/25 16:14
05/12/25 16:14
Vital Signs
Initial and Last Documented VS:
Initial Vital Signs
Temp Pulse Resp BP Pulse Ox
98.6 F 133 16 133/91 97
05/12/25 16:10 05/12/25 16:10 05/12/25 16:10 05/12/25 16:10 05/12/25 16:10
Last Documented Vital Signs
Temp Pulse Resp BP Pulse Ox
98.3 F 101 22 101/59 96
05/12/25 22:31 05/12/25 22:31 05/12/25 22:31 05/12/25 22:31 05/12/25 22:31
Director Of Partnerships consulted with Physician
Director Of Partnerships consulted with physician?: Yes
Name of Physician Consulted: Peg
MDM/Problems Addressed
Differential Diagnosis Includes:
Hepatitis, gallstones, biliary obstruction, cirrhosis
MDM/Problems Addressed:
[id number] female with history of alcohol abuse, history of severely abnormal LFTs, jaundice, thrombocytopenia, toxic metabolic encephalopathy, states she has not had any alcohol since September 2023.
Presents upon the recommendation of her primary care physician after a routine comprehensive blood test revealed elevated bilirubin levels of 15 mg/dL. about 10 days ago. Patient initially delayed seeking care to monitor her symptoms. However, she
reports experiencing persistent bloating, cramping, and abdominal pressure for about a week. The patient also feels worn down and fatigued. Additionally, she reports a cough that varies between a dry cough with a tickle sensation in her throat and a
cough that feels like something is stuck in her throat. Although she does not experience shortness of breath, she occasionally feels unable to take a full breath of air.
She recently completed a 5-day course of Nitrofurantoin for a urinary tract infection (UTI), finishing the regimen this morning.
For the past week, she's had soft, mushy, but typically normally colored stools and denies any diarrhea or light-colored stools. She denies any drug use.
Denies fever/chills/n/v.
CBC with no clinically significant abnormality
CMP: Total bilirubin 10.2, transaminitis
Coagulations: Prolonged PTT at 20.2
Esophagogastroduodenoscopy in 11/2023 for cirrhosis to rule out esophageal varices revealed grade 1 esophageal varices, tortuous esophagus, portal hypertensive gastropathy.
8:30 PM:
Abdominal ultrasound radiology report read: IMPRESSION:
Hepatic cirrhosis with secondary findings of portal hypertension including splenomegaly and mild abdominal ascites.
Gallbladder wall thickening is favored to be reactive. No cholelithiasis. No evidence for bile duct dilatation.
Plan: Admit: Hepatic cirrhosis with portal hypertension and splenomegaly, mild ascites,
Hospitalist notified of admission
*Pulse Oximetry
SaO2: 97
Oxygen Mode of Delivery: Room air
Patient hypoxic: no
*Critical Care Note
Total Time (30-74mins, 75-104mins- exclusive of procedures): Not Applicable
ED Attending Note
-
Portions of this chart may have been created with voice recognition software.� Occasional wrong word or��sound alike� substitutions may have occurred due to the inherent limitations of voice recognition software.
Discharge Plan
Departure
Patient Disposition: Admit
Date of Disposition: 05/12/25
Time of Disposition: 19:49
Admit to: Med/Surg
Presentation/result/management discussed w/ accepting MD/DO: Hospitalist
Condition: Fair
Discharge Problem:
Cirrhosis, Portal hypertension, Abdominal ascites
Interventions
Interventions:
*Risk Screen - Suicide Last Done: 05/12/25 16:09
*General Assessment Last Done: 05/12/25 18:01
*Neglect/Abuse Screening Last Done: 05/12/25 16:09
*ED- Fall Risk Assessment Last Done: 05/12/25 18:01
*ED COVID-19 Vaccine History Last Done: 05/12/25 22:04
*Nursing Disposition Last Done: 05/12/25 22:31
Discharge Date and Time
Discharge Date/Time: 05/12/25 22:32
[2025-05-12] MEDS: NSS 1000 IV (18:53)
[2025-05-12 19:36] LABS: Urine Character Slightly Cloudy (Clear)
[2025-05-12 20:20] LABS: Acetaminophen < 10 ug/ml (10-30)
[2025-05-12 20:22] LABS: Urine Red Blood Cell 0-2 /HPF (0-2)
[2025-05-12 20:31] LABS: Hepatitis B Surface Antigen Negative (Negative)
[2025-05-12 20:48] LABS: Hepatitis A Antibody, Total Negative (Negative); Hepatitis C Antibody Negative (Negative)
--- NOTE | 2025-05-12 20:55 | HPS.HSE ---
Family Physician
-
Family Physician: LILLIANA Rivera
Chief Complaint
-
Hyperbilirubinemia
History of Present Illness
This is a 39-year-old female with past medical history significant for alcohol cirrhosis with previous complication of withdrawal seizure jaundice who now presents to the emergency department with episode of jaundice. Patient reported that her last
drink was September 2023. She does not take any medications besides a multivitamin. She denies any Tylenol use. She denies any NSAID use. She denies any prior history of GI bleed and denies seeing any melena. She denies any nausea or vomiting or
hematemesis. She has no hematochezia. She reports that about 2 weeks ago she noticed a change in the color of her eyes and she did saw a physician who did some blood work. At that time she was found to have elevated bilirubin. She was told to go
to the emergency department. However she wanted to wait and see what her symptoms improved. She noticed mild epigastric discomfort and increasing abdominal girth. She denied any pedal edema. She has not had any fevers or chills.
She reported that she had a UTI and finished a course of antibiotics with Macrobid and resolution of her symptoms recently. She has a recent travel to the beach but otherwise no travel outside of the country. She denies any new foods. She denies
history of gallstones.
In the emergency department she was afebrile, blood pressure was 120/90 with a pulse rate of 117 and she was satting 98% on room air. Chest x-ray showed low lung volumes but otherwise unremarkable.
CBC was unremarkable. Electrolytes BUN/creatinine were normal. Total bilirubin was elevated at 10.2 with AST of 209 and ALT of 50. Alk phos 180. UA was unremarkable.
Ultrasound shows hepatic cirrhosis with secondary findings of portal hypertension including splenomegaly and mild abdominal ascites. There is gallbladder wall thickening which is favored to be reactive. No cholelithiasis and no evidence of bile
duct dilation. Acute hepatitis panel only shows hepatitis B surface antibody.
Medical History
Past Medical History
Past Medical History: Reports Other (History of alcohol abuse with withdrawal seizure, alcohol cirrhosis)
Additional Past Medical History:
History of miscarriage, obesity
Past Surgical History: Reports None and Other
Social History
Tobacco: Non-smoker
Alcohol: Former (Half to 1 bottle of vodka)
Drug: None
Personal:
Living: With Family
Employment: Employed
Family History
Family History: Not pertinent
Allergies / Home Medications
Allergies reflects when Allergies were last updated in [facility].
Home Medications with original date entered in [facility]
Allergy/Medication List:
Allergies
Allergy/AdvReac Type Severity Reaction Status Date / Time
No Known Allergies Allergy Unverified 10/07/23 09:16
Home Medications
Lactobac no.2-Bifidobac no.1-S. thermo 112.5 billion cell capsule (Visbiome) 1 cap PO DAILY 05/12/25
therapeutic multivitamin 1 tab PO DAILY 05/12/25
Review of Systems
-
Constitutional: Reports No Symptoms
EENT: Reports No Symptoms
Respiratory: Reports No Symptoms
Cardiac: Reports No Symptoms
Abdomen/GI: Reports Abdominal Pain
: Reports No Symptoms
Musculoskeletal: Reports No Symptoms
Skin: Reports Other (Jaundice)
Neurological: Reports No Symptoms
Endocrine: Reports No Symptoms
Hematologic/Lymphatic: Reports No Symptoms
Psych: Reports No Symptoms
Physical Exam
Vital Signs
Vital Signs
Temp Pulse Resp BP Pulse Ox
98.6 F 117 19 121/89 97
05/12/25 16:10 05/12/25 18:00 05/12/25 18:00 05/12/25 18:00 05/12/25 18:13
Physical Exam
General: Well Developed, No Apparent Distress and Comfortable
HEENT: NormoCephalic, Moist mucous membranes and PERRLA; No Anicteric
Respiratory: Clear
Cardiac: S1/S2 and Tachycardia
Breast: Deferred by me
GI: Soft, Non Tender, Normal Bowel Sounds and Distended
Rectal: Deferred by Provider
Genito-urinary: Deferred by me
Musculoskeletal: No Clubbing, No Cyanosis and No Edema
Skin: Warm and Jaundice
Neuro: AO x 3 and Nonfocal/grossly intact
Hematologic/Lymphatic: No Lymphadenopathy
Psych: Calm
Laboratory Results
-
05/12/25 16:14
05/12/25 16:14
Laboratory Results
PT 20.2 Sec (11.4-14.6) H 05/12/25 16:14
INR 1.71 05/12/25 16:14
APTT 35.5 Sec (23.4-35.0) H 05/12/25 16:14
Total Bilirubin 10.2 mg/dl (0.2-1.3) H 05/12/25 16:14
AST 209 U/L (14-36) H 05/12/25 16:14
ALT 57 U/L (0-35) H 05/12/25 16:14
Alkaline Phosphatase 189 U/L (38-126) H 05/12/25 16:14
Data Reviewed
-
Diagnostic Radiology: Image Personally Visualized and interpreted and Report Reviewed by me
Ultrasound: Report Reviewed by me
Lab Data: Labs Reviewed by me
Old Records: Reviewed
Impression/Plan
-
IMPRESSION:
This is a 39-year-old female with past medical history significant for alcohol cirrhosis who has a last drink almost 2 years ago presenting to the emergency department with new episode of jaundice. Bilirubin had resolved by December 2023. However
bilirubin today is up to 10.2. She denies any alcohol use. She denies Tylenol use and Tylenol level was negative. She denies any ingestions. She has mild abdominal distention without nausea vomiting diarrhea. She has no evidence of GI bleed.
She was recently treated with Macrobid for a UTI but otherwise no recent exposures to any medications. In addition to her bilirubins AST has been elevated to 9 and ALT slightly to over 50. Alk phos also elevated to 189. The rest of her labs are
unremarkable. Ultrasound shows no evidence of cholelithiasis or choledocholithiasis. There was hepatic cirrhosis with secondary findings of portal hypertension including splenomegaly and mild abdominal ascites.
PLAN:
Acute hepatitis/cirrhosis decompensation - Pt denies etoh exposure, no tylenol, negative acute hep panel (+ hep B surface ab and reports prior immunization), no biliary obstruction. Mild ascites with splenomegaly c/w portal hypertension but
unlikely bacterial peritonitis. No encephalopathy.
- admit to med/surg
- inr 1.7, check ammonia levels, lipase
- consider possible paracentesis but given mild ascites likely inpractical and inconsequential. No peripheral edema.
- trend lfts for now
- no hepatotoxic exposure.
- pain control and antiemetics
- diet as tolerated for now
- GI consultation
DVT PPX - SCDs
Code status - Full Code
[2025-05-12 21:33] LABS: Lipase 190 U/L (23-300)
[2025-05-12 21:38] LABS: Ammonia < 9 umol/L (9-30)
[2025-05-12 22:00] VITALS: BP 101/59
[2025-05-12 22:31] VITALS: BP 101/59
[2025-05-12 22:32] VITALS: BMI 32.2
[2025-05-12 23:00] VITALS: BP 127/85
--- NOTE | 2025-05-13 03:12 | DOWNTIME ---
There was a [employer] Client Supervisor Packing Downtime on 05/13/2025 from 0100 to 05/13/2025 at 0215. Downtime documentation of patient's care, including medication administrations, has been reconciled in the electronic record per guidelines. Refer to the
patient's paper chart under the miscellaneous tab to see printed paper medication records and downtime forms.
[2025-05-13] MEDS: THERAGRAN 1 TABLET PO (07:18)
[2025-05-13] MEDS: VISBIOME 1 CAP PO (07:18)
[2025-05-13 07:48] VITALS: BP 117/72
[2025-05-13 09:03] LABS: ALT (SGPT) 51 U/L (0-35); AST (SGOT) 163 U/L (14-36); Albumin 2.9 g/dl (3.5-5.0); Alkaline Phosphatase 148 U/L (38-126); Blood Urea Nitrogen 9 mg/dl (7-17); Calcium 8.4 mg/dl (8.4-10.2); Carbon Dioxide 26 mmol/L (22-30); Chloride 105 mmol/L (98-107); Estimated Creatinine Clearance > 125 ml/min; Glucose 98 mg/dl (70-99); Potassium 4.9 mmol/L (3.5-5.1); Sodium 136 mmol/L (135-145); Total Protein 7.0 g/dl (6.3-8.2); eGFR > 60.00
--- NOTE | 2025-05-13 09:06 | CON.GI ---
Addendum entered and electronically signed by Kishore Birmingham MD 05/13/25 15:15:
I saw and evaluated the patient. I reviewed the resident�s note and agree with findings and plan as documented in the resident�s note.
I saw and evaluated the patient. I reviewed the resident�s note and agree with findings and plan as documented in the resident�s note.
39yo female with hx EtOH cirrhosis follows with Dr Bond in office since admission for EtOH liver disease last year. She reports she quit EtOH since that admission. She had recent UTI treated with macrobid and noted jaundice after starting.
Prior LFTs were mildly elevated in December 2023 with TB 1.2, AST 70, ALT 31, AP 181. TB on 04/30 15.1, UCx positive Ecoli 05/06, started macrobid 05/07. Denies abd pain
REC:
Initially we thought Macrobid could be cause for DILI, but it now looks like jaundice started 04/30 prior to initiation of macrobid on 05/07.
LFTs could rise due to infection, but not typically to this degree
US doppler shows no thrombosis as cause
Trend LFTs. Check AFP
US showed no lesion, but consider MRI next if no clear cause and LFTs persist
Original Note:
Consultation
-
Date/Time Consultation Requested: 05/12/2025 20:00
Date/Time Consultation Performed: 05/13/2025 09:00
Requesting Provider: Letty Tavares V.
Performing Provider: Kishore Birmingham
Reason for Consultation: Hepatic cirrhosis, portal hypertension, splenomegaly, mild ascites
Medical History
Chief Complaint / HPI
Chief Complaint: Jaundice
History of Present Illness:
Li is a 39-year-old female with a past medical history of alcoholic liver cirrhosis secondary to chronic alcohol use disorder (in remission since 2023), with history of withdrawal seizures and hospitalizations due to withdrawal, who presented
to the ED for complaints of jaundice and abd discomfort.
She notes that she had been developing jaundice over the past 10-14 days for which she was seen by her PCP who ran labwork which showed elevated bilirubin. She was told to go to the hospital that time, but decided to wait to see if symptoms would
resolve on their own. She noted no tylenol use, no alcohol use, no IV drug use, or NSAID use during this time. She did not have any nausea, vomiting, coffee ground emesis, hematemesis, diarrhea, bruising, bloody stools or vomit, fevers or chills
during this time. The jaundice did not resolve and she began to notice slight abd distention and continued abd discomfort which prompted her to come to the ED. Of note, she was seen by PCP for mild UTI symptoms, for which a Urine culture came back
positive on 05/07 and she was started on a 5d course of macrobid. She reports having taken macrobid before in October 2023 without issue or side effects.
She see Dr. Bond as outpatient. She had an EGD in November of 2023 which showed Grade I Esophageal varices and portal hypertensive gastropathy. She has never had a colonoscopy. She has had MRI imaging of the abdomen in November 2023 which showed
findings suggestive of acute hepatic cirrhosis and portal htn changes, mild steatosis, but no suspicious lesions. Workup for secondary causes of cirrhosis during 2023 was unrevealing. She was doing well at January 2024 follow up. Next appt is scheduled
for Aug 2025. Per the patient, she has not discussed transplant with Dr. Bond yet.
On arrival to the ED her vital signs were stable, her lab work revealed hgb 14.3, no leukocytosis, plt count of 155, INR 1.71 (1.26 in 2023), Na 135, access rn 0.6, T bili 10.2, direct 7.4, AST/ALT 204/57, ALP 189, wnl ammonia, Albumin 3.5. Abd US done on
admission showed Hepatic cirrhosis with portal htn, splenomegaly, and mild abdominal ascites. CXR showed no consolidation, effusion or pneumothorax.
She was admitted and GI was consulted for ascites, decompensated liver cirrhosis.
Today she is feeling well, has had no new fevers, chills, n/v/d. She is tolerating a regular diet and has only minimal abdominal discomfort that is no worse than on arrival.
Past Medical History
Past Medical History: Other (See HPI)
Past Surgical History: Other (Ectopic x 2 with removal of left fallopian tube)
Social History
Drug: None
Family History
Family History: Reviewed & Not Pertinent
Allergies / Home Medications
Allergy/AdvReac Type Severity Reaction Status Date / Time
No Known Allergies Allergy Unverified 10/07/23 09:16
�Medication �Instructions �Recorded
Lactobac no.2-Bifidobac no.1-S. 1 cap PO DAILY 05/12/25
thermo 112.5 billion cell capsule
(Visbiome)
therapeutic multivitamin 1 tab PO DAILY 05/12/25
Review of Systems
-
History Source: Patient
All other systems: A 12 pt ROS was Negative except as stated above in HPI
Vital Signs
Temp Pulse Resp BP Pulse Ox
98.0 F 110 18 117/72 95
05/13/25 07:48 05/13/25 07:48 05/13/25 07:48 05/13/25 07:48 05/13/25 07:48
Physical Exam
Exam
General: Well Developed, Well Nourished, No Apparent Distress and Comfortable
HEENT: Normocephalic, Moist Mucous Membranes, Atraumatic and Other
Respiratory: Clear and Non Labored Respirations; Negative Wheezes, Rales or Rhonchi
Cardiac: S1/S2 and Regular Rhythm; Negative Murmur, Rub or Peripheral Edema
Breast: Deferred by me
GI: Soft, Non Tender, Non Distended, Normal Bowel Sounds and Other (no fluid wave)
Rectal: Deferred by Provider
Genito-urinary: No Costovertebral Tender
Musculoskeletal: No Clubbing, No Cyanosis and No Edema
Skin: Warm and Dry
Neuro: AO x 3
Psych: Calm
Results
WBC 10.0 10^3/uL (4.8-10.8) 05/12/25 16:14
Hgb 14.3 g/dL (12.0-16.0) 05/12/25 16:14
Hct 41.1 % (37.0-47.0) 05/12/25 16:14
MCV 100.2 fL (81.0-99.0) H 05/12/25 16:14
Plt Count 155 10^3/uL (130-400) 05/12/25 16:14
Absolute Neuts (auto) 7.0 10^3/uL (1.4-6.5) H 05/12/25 16:14
PT 20.2 Sec (11.4-14.6) H 05/12/25 16:14
INR 1.71 05/12/25 16:14
APTT 35.5 Sec (23.4-35.0) H 05/12/25 16:14
Sodium 136 mmol/L (135-145) 05/13/25 08:02
Potassium 4.9 mmol/L (3.5-5.1) 05/13/25 08:02
Chloride 105 mmol/L (98-107) 05/13/25 08:02
Carbon Dioxide 26 mmol/L (22-30) 05/13/25 08:02
BUN 9 mg/dl (7-17) 05/13/25 08:02
Creatinine 0.6 mg/dL (0.6-1.0) 05/13/25 08:02
Calcium 8.4 mg/dl (8.4-10.2) 05/13/25 08:02
Total Bilirubin 9.1 mg/dl (0.2-1.3) H 05/13/25 08:02
AST 163 U/L (14-36) H 05/13/25 08:02
ALT 51 U/L (0-35) H 05/13/25 08:02
Alkaline Phosphatase 148 U/L (38-126) H 05/13/25 08:02
Lipase 190 U/L (23-300) 05/12/25 16:14
Hepatitis A IgM Ab Negative (Negative) 05/12/25 19:22
Hepatitis A Ab Total Negative (Negative) 05/12/25 19:21
Hep Bs Antibody Positive 05/12/25 19:21
Hep B Core Total Ab Negative (Negative) 05/12/25 19:21
Hep B Core IgM Ab Negative (Negative) 05/12/25 19:22
Hepatitis C Antibody Negative (Negative) 05/12/25 19:21
Diagnostic Image Results:
Prior GI Procedures:
EGD:
Endoscopy 12/20/2023:
Findings:
One column of Grade I varices were found in the lower third of the
esophagus.
The examined esophagus was mildly tortuous.
The Z-line was regular and was found 35 cm from the incisors.
Mild portal hypertensive gastropathy was found in the entire examined
stomach. Biopsies were taken with a cold forceps for histology.
The examined duodenum was normal until the 2nd portion. Biopsies were
taken with a cold forceps for histology.
Impression: - Grade I esophageal varices.
- Tortuous esophagus.
- Z-line regular, 35 cm from the incisors.
- Portal hypertensive gastropathy. Biopsied.
- Normal examined duodenum. Biopsied.
Recommendation: - Await pathology results.
- Low sodium diet, high protein diet.
- Telephone GI clinic for pathology results in 2 weeks.
- No ibuprofen, naproxen, or other non-steroidal
anti-inflammatory drugs.
- Will f/u in the office and will discuss regarding
B-nasir.
Colonoscopy: None.
Assessment / Plan
-
Li is a 39-year-old female with a past medical history of alcoholic liver cirrhosis secondary to chronic alcohol use disorder (in remission since 2023), with history of withdrawal seizures and hospitalizations due to withdrawal, who presented
to the ED for complaints of jaundice and abd discomfort
#Decompensated alcoholic liver cirrhosis, not currently drinking
#Ascites
#Hyperbilirubinemia
MELD Score on Admission: 22
Yajaira's Discriminant Function: 43.3, poor prognosis
Etiology of decompensation most likely due to Macrobid induced liver toxicity vs. less likely relapse in alcohol consumption vs. secondary to urinary infection vs. multifactorial
Given recent UTI with treatment with Macrobid, as well as timing of sx onset, would assume a multifactorial etiology of decompensated alcoholic liver cirrhosis possibly secondary to acute urinary infection then exacerbated by Macrobid induced
hepatotoxic injury.
- Infectious workup thus far negative, hepatitis B antibody positive, however panel otherwise negative
- Lesterey's 43, however low suspicion for alcoholic hepatitis -- would hold off on prednisone at this time
- Abd US unrevealing, Abd US with doppler showing findings consistent with portal htn, but no evidence of thrombus or occlusion
- tolerating regular diet without signs of biliary obstruction that might account for hyperbilirubinemia
- C/t trend CMP
- T bili downtrending
- AST/ALT/ALP downtrending
- UCx pending, but suspect will be negative
At this time would continue to follow clinically. Not unreasonable to observe one more day for continued improvement and then follow up in office with Dr. Bond for TC visit.
GI will c/t follow.
-
-
Thank you for consultation and allowing me to participate in the patient's care. Please call the manager economic GI physician during the after hours with any questions or concerns.
[2025-05-13 10:07] LABS: Folate 11.6 ng/ml (2.76-20); Vitamin B12 902 pg/ml (239-931)
--- NOTE | 2025-05-13 15:09 | W.PN.HOSP.TC ---
Today's Communication/Plan
-
Recheck LFT/INR in am
monitor off abx
Assessment / Plan
Assessment / Plan
1. Cholestatic jaundice
Mild transaminitis
- Hepatitis panel negative
- CT abdomen pelvis showing known findings of cirrhosis and portal hypertension
- Doppler ultrasound of hepatic/splenic vein ruled out any thrombosis
- Imaging finding not suggestive of any biliary problems
- Patient have got on Macrobid which can give idiosyncratic liver injury
- Follow-up LFTs in the morning
2. Coagulopathy
- INR 1.7, follow-up in the morning
- Secondary to cirrhosis
- No bleeding diathesis
3. History of alcohol use
- Patient denies of using any alcohol for the last year
4. Ascites
- Asymptomatic, noted on imaging
- No previous history of paracentesis
5. Asymptomatic bacteriuria
- Patient has no bacteriuria no pyuria. Denies of any dysuria
- UA abnormal with positive for occult blood/bilirubin/ketone, this can be explained by patient underlying liver issue not necessarily suggestive of any ongoing infection.
- Monitor off antibiotic
DVT prophylaxis -SCD
Full code
Total time spent 54-minute
Care plan discussed with GI
Anticipated Discharge: Within 24 hours
Subjective/Interval History
-
Date of Service: May 13, 2025
Denies of abdominal pain/nausea/vomiting
No other issues
Objective Data
-
Labs:
Laboratory Results
05/13/25
08:02
Sodium 136
Potassium 4.9
Chloride 105
Carbon Dioxide 26
BUN 9
Creatinine 0.6
Glucose 98
Calcium 8.4
Total Bilirubin 9.1 H
AST 163 H
ALT 51 H
Alkaline Phosphatase 148 H
Vital Signs:
Vital Signs
Temp Pulse Resp BP Pulse Ox
98.0 F 110 18 117/72 95
05/13/25 07:48 05/13/25 07:48 05/13/25 07:48 05/13/25 07:48 05/13/25 07:48
I&O
05/12/25 05/13/25 05/14/25
06:59 06:59 06:59
Intake Total 480 / 480
Balance 480 / 480
Review of Systems
-
Respiratory: Reports No Symptoms
Cardiac: Reports No Symptoms
Abdomen/GI: Reports No Symptoms
Physical Exam
-
HEENT: Negative Oxygen
Respiratory: Clear to Auscultation
Cardiac: Regular Rhythm and S1/S2; Negative Murmur or Rub
GI: Soft, Nontender and Nondistended
Neuro: Awake, Alert, Oriented, No Motor Deficits and Nonfocal/Grossly Intact
Psych: Calm
[2025-05-13 15:43] VITALS: BP 125/66
--- NOTE | 2025-05-13 16:41 | CM ---
customer account manager reviewed patient's chart and met with patient and patient was admitted under OBS, OBS letter explained and signed, patient lives with spouse in a 2 story home, patient is independent with adl's and ambulation, no dme, patient drives,
home when stable, no needs.
PCP: Mirtha Loyd
Pharmacy: [facility].
[2025-05-13 23:45] VITALS: BP 114/81
[2025-05-14] MEDS: THERAGRAN 1 TABLET PO (07:00)
[2025-05-14] MEDS: VISBIOME 1 CAP PO (07:00)
[2025-05-14 08:00] VITALS: BP 102/67
[2025-05-14 09:08] LABS: INR 1.77; PT 21.1 Sec (11.4-14.6)
[2025-05-14 09:28] LABS: ALT (SGPT) 45 U/L (0-35); AST (SGOT) 147 U/L (14-36); Albumin 2.8 g/dl (3.5-5.0); Alkaline Phosphatase 149 U/L (38-126); Blood Urea Nitrogen 7 mg/dl (7-17); Calcium 8.2 mg/dl (8.4-10.2); Carbon Dioxide 23 mmol/L (22-30); Chloride 106 mmol/L (98-107); Estimated Creatinine Clearance > 125 ml/min; Glucose 78 mg/dl (70-99); Potassium 3.9 mmol/L (3.5-5.1); Sodium 134 mmol/L (135-145); Total Protein 7.0 g/dl (6.3-8.2); eGFR > 60.00
--- NOTE | 2025-05-14 10:04 | CM ---
Patient is for discharge to home today no needs.
Plan; Home no needs.
[2025-05-14 11:55] VITALS: BP 123/86
--- NOTE | 2025-05-14 12:01 | W.DCSUMMARY ---
Discharge Summary
Discharge Data
Date of Admission: 05/12/25
Date of Discharge: 05/14/25
-
Pending Results: No
Hospital Course
Discharging Physician : Dr Femi Burroughs
Disposition : To home
Primary care physician : Dr Mirtha Crain
Principal Discharge diagnosis :
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
Cholestatic jaundice
Mild to moderate ascites
Mild transaminitis
Asymptomatic bacteriuria
Chronic Discharge diagnosis :
Cirrhosis
History of alcohol use
Physical examination:
HEENT: No pallor, cyanosis, or jaundice. Throat clear.
NECK: Supple. No JVD.
RESPIRATORY: Lungs clear to auscultation.
CVS: S1, S2 normal. RRR. No murmur, rub or gallop.
ABDOMEN: Soft, non-tender. No distension. BS+/normal.
EXTREMITIES: No peripheral cyanosis or edema.
PLATE CONDITIONER: AOx3. No focal deficits.
Hospital Course :
Patient is a 39-year-old female with above-mentioned past medical history came to ER with new onset of skin/eye yellowing. Patient had outpatient blood work and was noted to having elevated bilirubin level with transaminitis. Patient was sent into
ER for further evaluation. In ER blood work showing a cholestatic jaundice pattern with mild transaminitis. Patient had abdominal imaging with CT abdomen pelvis and Doppler ultrasound of abdomen showing known changes of cirrhosis and portal
hypertension. Doppler ultrasound did not show any hepatic/splenic vein thrombosis. Hepatitis panel was negative. Patient had moderate ascites although was asymptomatic from it. GI evaluated patient and felt patient symptom was likely from
Macrobid use related idiopathic drug liver injury. Macrobid was given for UTI in outpatient basis. Patient was monitored for 48 hours in the hospital and had slowly improving liver function test. GI had cleared patient at this point for
outpatient blood work and follow-up in primary care physician office.
Important imaging findings :
None
Procedure findings :
None
Discharge Plan
-
Patient Disposition: Home (Routine Discharge)
Discharge Diagnosis/Procedures: Idiopathic drug induced liver injury from macrobid, Cholestatic jaundice, mild hepatitis
Condition: Fair
Diet: Low Fat
Activity: As tolerated
Driving Restrictions: As prior to admission
Bathing Restrictions: OK to Shower
Referrals:
Mirtha Loyd CRNP [Family Provider, General] - in one week
Prescriptions:
New
(DME) CMP
See Rx Instructions .Route .MEDSUPPLY Qty: 1 0RF
Rx Instructions:
Complete metabolic profile
Dx : Acute transaminitis, Cholestatic jaundice
To be done in 1-2 weeks
Forward result to primary care physician
Continued
therapeutic multivitamin Tablet
1 tab PO DAILY
Visbiome 112.5 billion cell Capsule
1 cap PO DAILY
Discharge Orders:
Discharge Patient (As Directed); Ordered 05/14/25
Ordered By: Femi Burroughs
Discharge Date and Time
Discharge Date/Time: 05/14/25 11:50
Print Language: THAI
[2025-05-14 19:13] LABS: AFP Male/Tumor Marker 16.8 ng/ml
== END 2025-05-14 11:50 | disposition home or self-care (01) ==
LOC: 4 WEST ACU 21:36
PROVIDERS: Registered Nurse; ADMITTING PHYSICIAN Internal Medicine; ATTENDING PHYSICIAN Hospitalist; CONSULT PHYSICIAN Specialist; EMERGENCY PHYSICIAN Emergency Medicine; FAMILY PHYSICIAN Nurse Practitioner Primary Care
DX: K71.9 Toxic liver disease, unspecified (principal); T37.8X5A Adverse effect of other specified systemic anti-infectives and antiparasitics, initial encounter; Y92.9 Unspecified place or not applicable; K70.31 Alcoholic cirrhosis of liver with ascites; R79.89 Other specified abnormal findings of blood chemistry; R14.0 Abdominal distension (gaseous); R53.83 Other fatigue; R05.9 Cough, unspecified; R00.0 Tachycardia, unspecified; R74.01 Elevation of levels of liver transaminase levels; K76.6 Portal hypertension; K82.8 Other specified diseases of gallbladder; E66.9 Obesity, unspecified; I85.10 Secondary esophageal varices without bleeding; K31.89 Other diseases of stomach and duodenum; R16.1 Splenomegaly, not elsewhere classified; J98.11 Atelectasis; D68.9 Coagulation defect, unspecified; Z68.32 Body mass index [BMI] 32.0-32.9, adult; Z87.440 Personal history of urinary (tract) infections; Z90.79 Acquired absence of other genital organ(s)
CPT/HCPCS: 71046; 76700; 80053; 80143; 81003; 81015; 82105; 82140; 82248; 82607; 82746; 83690; 84703; 85025; 85610; 85730; 86663; 86664; 86665; 86704; 86705; 86706; 86708; 86709; 86803; 87086; 87340; 93005; 93975; 96360; 99285; G0378

== ENCOUNTER 2025-05-25 22:03 | Observation (INO) | payer OTHER, SELFPAY ==
[2025-05-25] VITALS (7 sets, daily range): BP systolic 103–154; BP diastolic 68–107; BMI 34.5; BMI 33.2
[2025-05-25 14:21] LABS: Hematocrit 38.4 % (37.0-47.0); Hemoglobin 13.3 g/dL (12.0-16.0); Mean Corp Hgb Conc. 34.6 g/dL (33.0-37.0); Mean Corpuscular Volume 99.0 fL (81.0-99.0); Nucleated Red Blood Cells % 0 %; Platelet Count 111 10^3/uL (130-400); Red Cell Dist. Width 13.7 % (11.5-14.5)
[2025-05-25 14:44] LABS: HCG, Serum Qualitative Screen Negative
[2025-05-25 14:47] LABS: ALT (SGPT) 37 U/L (0-35); AST (SGOT) 112 U/L (14-36); Albumin 3.1 g/dl (3.5-5.0); Alkaline Phosphatase 128 U/L (38-126); Blood Urea Nitrogen 7 mg/dl (7-17); Calcium 8.3 mg/dl (8.4-10.2); Carbon Dioxide 23 mmol/L (22-30); Chloride 105 mmol/L (98-107); Glucose 153 mg/dl (70-99); Lipase 243 U/L (23-300); Potassium 3.5 mmol/L (3.5-5.1); Sodium 135 mmol/L (135-145); Total Protein 7.4 g/dl (6.3-8.2); eGFR > 60.00
--- NOTE | 2025-05-25 16:13 | ED.GENMED ---
History of Present Illness
<Laurie Posadas PA-C - Last Filed: 05/25/25 21:52>
General
Chief Complaint: Abdominal Pain
Source: patient and records
Exam Limitations: none
Time Seen by Provider: 05/25/25 15:57
History of Present Illness
History of Present Illness:
39yoF with a history of cirrhosis presenting for evaluation of abdominal bloating. Patient was recently hospitalized from 05/12-05/14/25 for transaminitis. Her bilirubin was 10.2 at time of admission. Transaminitis was thought to be related to
Macrobid related liver injury. Bilirubin was 8.3 at time of discharge. She did have abdominal discomfort during her admission which has progressed to pain. She also reports worsening abdominal distention and feels like she 'is going to pop.' She
has a history of ascites and abdominal ultrasound on 05/12 showed mild abdominal ascites. She has never required paracentesis before. She denies any fevers, chills, vomiting, diarrhea, dysuria. She follows with Dr. Bond and is scheduled to have
an MRI abdomen in June. She has not drank any alcohol since 2023.
Past History
<Laurie Posadas PA-C - Last Filed: 05/25/25 21:52>
Past History
ED Past Medical History: None
ED Past Surgical History: Gynecological (Ectopic pregnancies with removal of left fallopian tube)
Social History
Tobacco: Non-smoker
Alcohol: Binge drinker
Drug: None
Personal:
Living: with family
Phy Exam
<Laurie Posdaas PA-C - Last Filed: 05/25/25 21:52>
General Physical Exam
General Presentation: no apparent distress
General Skin: warm and dry
General Habitus: normal
General Mental: alert
ENT Exam
ENT Exam: normocephalic and other (Scleral icterus)
Pulmonary Exam
Pulmonary Exam: no respiratory distress
Gastrointestinal Exam
Gastrointestinal Exam: soft, distended and other (Abdomen distended with a positive fluid wave. Mild generalized tenderness. No guarding or rebound.)
Neurological Exam
Neurological Exam: alert
Avalon Coma Scale
Eye Opening: Spontaneous
Verbal Response: Oriented
Motor Response: Obeys Commands
GCS Total Score: 15
Skin Exam
Skin Exam: warm/dry and jaundice
Psychiatric Exam
Psychiatric Exam: normal mood/affect
<Kar Gutierrez DO - Last Filed: 05/25/25 21:57>
Avalon Coma Scale
GCS Total Score: 15
Course
<Laurie Posadas PA-C - Last Filed: 05/25/25 21:52>
Orders/Labs/Results
Orders:
Orders
05/25/25 14:04
Test Result ONCE
05/25/25 14:14
Complete Blood Count/With Diff Urgent
Comprehensive Metabolic Panel Urgent
HCG, Serum Qualitative Screen Urgent
Lipase Urgent
05/25/25 16:29
Prothrombin Time Urgent
05/25/25 16:31
CT Abd/pelvis W Iv Cont Urgent
Comment:
Reason For Exam: generalized abd pain, bloating
05/25/25 21:15
Admit/Transfer Patient As Directed
Co-Sign Provider:
Level of Care: Observation services
Assign to:: Medical/Surgical
Physician / Group: Cristine Sheldon
Diagnosis: abdominal ascites, decompensated cirrhosis, transaminitis
PRN Pain Medication Management As Directed
May give lesser potent ordered pain med per pt: Yes
preference::
Protocol:: Medication orders for pain may be administered in a
manner that supports deferring to patient preference
when the pt is:
- Requesting an ordered lesser potent pain medication.
Least to most potent pain medications are defined
as: acetaminophen < NSAID < tramadol < opioids
(morphine, oxycodone, hydromorphone).
- Requesting a lesser dose of the same medication IF
ORDERED.
- Requesting a less intrusive route of administration
if both routes are prescribed by the provider (PO <
IV).
05/25/25 21:16
Code Status As Directed
Resuscitation Status: Full Code
Abnormal Lab Results
05/25/25 05/25/25
14:14 16:29
RBC 3.88 L 10^6/uL
(4.20-5.40)
MCH 34.3 H pg
(27.0-31.0)
Plt Count 111 L 10^3/uL
(130-400)
MPV 10.8 H fL
(7.4-10.4)
PT 21.0 H Sec
(11.4-14.6)
Glucose 153 H mg/dl
(70-99)
Calcium 8.3 L mg/dl
(8.4-10.2)
Total Bilirubin 7.2 H mg/dl
(0.2-1.3)
AST 112 H U/L
(14-36)
ALT 37 H U/L
(0-35)
Alkaline Phosphatase 128 H U/L
(38-126)
Albumin 3.1 L g/dl
(3.5-5.0)
05/25/25 14:14
05/25/25 14:14
Vital Signs
Initial and Last Documented VS:
Initial Vital Signs
Temp Pulse Resp BP Pulse Ox
98.2 F 130 20 154/107 96
05/25/25 14:01 05/25/25 14:01 05/25/25 14:01 05/25/25 14:01 05/25/25 14:01
Last Documented Vital Signs
Temp Pulse Resp BP Pulse Ox
98.2 F 112 20 109/68 95
05/25/25 14:01 05/25/25 18:00 05/25/25 14:01 05/25/25 21:00 05/25/25 21:30
<Kar Gutierrez, DO - Last Filed: 05/25/25 21:57>
Orders/Labs/Results
Orders:
Orders
05/25/25 14:04
Test Result ONCE
05/25/25 14:14
Complete Blood Count/With Diff Urgent
Comprehensive Metabolic Panel Urgent
HCG, Serum Qualitative Screen Urgent
Lipase Urgent
05/25/25 16:29
Prothrombin Time Urgent
05/25/25 16:31
CT Abd/pelvis W Iv Cont Urgent
Comment:
Reason For Exam: generalized abd pain, bloating
05/25/25 21:15
Admit/Transfer Patient As Directed
Co-Sign Provider:
Level of Care: Observation services
Assign to:: Medical/Surgical
Physician / Group: Cristine Sheldon
Diagnosis: abdominal ascites, decompensated cirrhosis, transaminitis
PRN Pain Medication Management As Directed
May give lesser potent ordered pain med per pt: Yes
preference::
Protocol:: Medication orders for pain may be administered in a
manner that supports deferring to patient preference
when the pt is:
- Requesting an ordered lesser potent pain medication.
Least to most potent pain medications are defined
as: acetaminophen < NSAID < tramadol < opioids
(morphine, oxycodone, hydromorphone).
- Requesting a lesser dose of the same medication IF
ORDERED.
- Requesting a less intrusive route of administration
if both routes are prescribed by the provider (PO <
IV).
05/25/25 21:16
Code Status As Directed
Resuscitation Status: Full Code
Abnormal Lab Results
05/25/25 05/25/25
14:14 16:29
RBC 3.88 L 10^6/uL
(4.20-5.40)
MCH 34.3 H pg
(27.0-31.0)
Plt Count 111 L 10^3/uL
(130-400)
MPV 10.8 H fL
(7.4-10.4)
PT 21.0 H Sec
(11.4-14.6)
Glucose 153 H mg/dl
(70-99)
Calcium 8.3 L mg/dl
(8.4-10.2)
Total Bilirubin 7.2 H mg/dl
(0.2-1.3)
AST 112 H U/L
(14-36)
ALT 37 H U/L
(0-35)
Alkaline Phosphatase 128 H U/L
(38-126)
Albumin 3.1 L g/dl
(3.5-5.0)
05/25/25 14:14
05/25/25 14:14
Vital Signs
Initial and Last Documented VS:
Initial Vital Signs
Temp Pulse Resp BP Pulse Ox
98.2 F 130 20 154/107 96
05/25/25 14:01 05/25/25 14:01 05/25/25 14:01 05/25/25 14:01 05/25/25 14:01
Last Documented Vital Signs
Temp Pulse Resp BP Pulse Ox
98.2 F 112 20 109/68 95
05/25/25 14:01 05/25/25 18:00 05/25/25 14:01 05/25/25 21:00 05/25/25 21:30
Jeffrylt;Laurie Posadas PA-C - Last Filed: 05/25/25 21:52>
MDM/Problems Addressed
Differential Diagnosis Includes:
39yoF here with worsening abd distention and pain. Hx of cirrhosis. HR 130 in triage. HR in the 110s on initial exam. Temp 98.2. Abdomen is distended on exam with a positive fluid wave. Differential diagnosis includes but is not limited to:
abdominal ascites, SBO, constipation
Initial ED plan: Workup initiated in triage. Transaminitis present with bilirubin of 7.2. This is down from 8.3 on 05/14. White count and lipase normal. Will check INR and CT abdomen. Did reach out to IR for paracentesis but they do not have any
availability today.
<Laurie Posadas PA-C - Last Filed: 05/25/25 21:52>
*Pulse Oximetry
SaO2: 96
Oxygen Mode of Delivery: Room air
Patient hypoxic: no
*Critical Care Note
Total Time (30-74mins, 75-104mins- exclusive of procedures): Not Applicable
<Laurie Posadas PA-C - Last Filed: 05/25/25 21:52>
Update Note
Update Note:
INR 1.79. CT shows moderate to large ascites. Only small amount of ascites present on abdominal ultrasound 2 weeks ago and she has never required paracentesis before. Unclear etiology for decompensated cirrhosis. Patient is not currently on any
diuretic therapy. Will admit for paracentesis and further management.
ED Attending Note
<Laurie Posadas PA-C - Last Filed: 05/25/25 21:52>
-
Portions of this chart may have been created with voice recognition software.� Occasional wrong word or��sound alike� substitutions may have occurred due to the inherent limitations of voice recognition software.
<Kar Gutierrez, - Last Filed: 05/25/25 21:57>
ED Attending Note
Patient seen and examined by attending physician: Yes
ED Attending Note:
I have reviewed and agree with history and treatment plan by Laurie Posadas PA-C. My exam revealed 39-year-old female with jaundice, ascites. Admit for further workup. No risk of alcohol withdrawal as she has not been drinking for some time.
Will need interventional radiology for paracentesis.
Discharge Plan
Departure
Patient Disposition: Admit
Date of Disposition: 05/25/25
Time of Disposition: 21:03
Presentation/result/management discussed w/ accepting MD/DO: Hospitalist
Discharge Problem:
Decompensated cirrhosis, Abdominal ascites
Prescriptions:
No Action
Theragen Tablet
1 tab PO DAILY
Referrals:
Mirtha Loyd CRNP [Family Provider, General]
Interventions
Interventions:
*Risk Screen - Suicide Last Done: 05/25/25 14:01
*General Assessment Last Done: 05/25/25 14:01
*Neglect/Abuse Screening Last Done: 05/25/25 18:15
*ED COVID-19 Vaccine History Last Done: 05/25/25 18:15
*ED Influenza Vaccine History Last Done: 05/25/25 18:15
RM-Uzpwaw-Xcacbazcaf Assessment Last Done: 05/25/25 18:15
Discharge Date and Time
Print Language: SERBIAN
[2025-05-25 16:54] LABS: INR 1.79; PT 21.0 Sec (11.4-14.6)
--- NOTE | 2025-05-25 21:05 | HPS.HSE ---
Family Physician
-
Family Physician: LILLIANA Rivera
Chief Complaint
-
Abdominal pain
History of Present Illness
This is a 39-year-old female with past medical history significant for alcohol cirrhosis with previous complication of withdrawal seizure jaundice who now presents to the emergency department with abdominal pain and increasing distention.
Patient was seen in the emergency department approximately 10 days ago for jaundice with cholestatic jaundice pattern with mild transaminitis. Patient had abdominal imaging with CT abdomen pelvis and Doppler ultrasound of abdomen showing known
changes of cirrhosis and portal hypertension. She had small amount of ascites which was not felt to be symptomatic at that time. Jaundice was felt to be related to Macrobid use for treatment of a urinary tract infection. Bilirubin was 8.2 at time
of discharge.
She now reports worsening abdominal distention. She reported that this has been going on since her discharge. She attempted to follow-up with gastroenterology but was not able to reach anyone a week ago. Due to progression of her distention and
increased weight she decided to come into the emergency department today. She reports 1 episode of nausea but no vomiting. She reports dull ache with palpation to her sides. She denies any diarrhea. She denies any melena or hematochezia. She has
a history of ascites and abdominal ultrasound on 05/12 showed mild abdominal ascites. She has never required paracentesis before. She denies any fevers, chills, dysuria. She follows with Dr. Bond and is scheduled to have an MRI abdomen in
June. She has not drank any alcohol since 2023.
In the emergency department she was afebrile, blood pressure was 104/71 with a pulse rate of 112 and she was satting 97% on room air. INR was 1.8. CBC was unremarkable. Electrolytes BUN/creatinine were normal. Total bilirubin was 7.2 with a AST
of 104 and ALT of 37.
CT of the abdomen pelvis showing cirrhosis with evidence of portal hypertension and splenomegaly portosystemic venous collaterals, and moderate to large volume ascites. No focal collection or abscess. No free air. Probable nonspecific small bowel
dysmotility/ileus. No definite evidence to suggest bowel obstruction.
Diffuse gallbladder wall thickening measuring up to 6 mm, which is equivocal in the presence of ascites. No apparent gallstones by CT.
There are 2 adjacent small foci of hyperenhancement involving the left renal cortex. Exact etiology uncertain. Not apparent on prior imaging. Possibly reflecting nonspecific inflammation/nephritis. A small enhancing mass is not entirely excluded.
Recommend follow-up nonemergent MRI for additional characterization.
Medical History
Past Medical History
Past Medical History: Reports Other (History of alcohol abuse with withdrawal seizure, alcohol cirrhosis)
Additional Past Medical History:
History of miscarriage, obesity
Past Surgical History: Reports None and Other
Social History
Tobacco: Non-smoker
Alcohol: Former (Half to 1 bottle of vodka)
Drug: None
Personal:
Living: With Family
Employment: Employed
Family History
Family History: Not pertinent
Allergies / Home Medications
Allergies reflects when Allergies were last updated in [facility].
Home Medications with original date entered in [facility]
Allergy/Medication List:
Allergies
Allergy/AdvReac Type Severity Reaction Status Date / Time
nitrofurantoin (From AdvReac Severe Unknown Verified 05/25/25 14:02
Macrobid)
Home Medications
Lactobac no.2-Bifidobac no.1-S. thermo 112.5 billion cell capsule (Visbiome) 1 cap PO DAILY Supplement 05/12/25
therapeutic multivitamin 1 tab PO DAILY Supplement 05/12/25
CMP #1 ea 05/14/25
Review of Systems
-
Constitutional: Reports No Symptoms
EENT: Reports No Symptoms
Respiratory: Reports No Symptoms
Cardiac: Reports No Symptoms
Abdomen/GI: Reports Abdominal Pain
: Reports No Symptoms
Musculoskeletal: Reports No Symptoms
Skin: Reports Other (Jaundice)
Neurological: Reports No Symptoms
Endocrine: Reports No Symptoms
Hematologic/Lymphatic: Reports No Symptoms
Psych: Reports No Symptoms
Physical Exam
Vital Signs
Vital Signs
Temp Pulse Resp BP Pulse Ox
98.2 F 112 20 104/71 93
05/25/25 14:01 05/25/25 18:00 05/25/25 14:01 05/25/25 20:07 05/25/25 20:15
Physical Exam
General: Well Developed, No Apparent Distress and Comfortable
HEENT: NormoCephalic, Moist mucous membranes and PERRLA; No Anicteric
Respiratory: Clear
Cardiac: S1/S2 and Tachycardia
Breast: Deferred by me
GI: Soft, Non Tender, Normal Bowel Sounds and Distended (not tense nor tympanitic, moderately distended)
Rectal: Deferred by Provider
Genito-urinary: Deferred by me
Musculoskeletal: No Clubbing, No Cyanosis and No Edema
Skin: Warm and Jaundice
Neuro: AO x 3 and Nonfocal/grossly intact
Hematologic/Lymphatic: No Lymphadenopathy
Psych: Calm
Laboratory Results
-
05/25/25 14:14
05/25/25 14:14
Laboratory Results
PT 21.0 Sec (11.4-14.6) H 05/25/25 16:29
INR 1.79 05/25/25 16:29
Total Bilirubin 7.2 mg/dl (0.2-1.3) H 05/25/25 14:14
AST 112 U/L (14-36) H 05/25/25 14:14
ALT 37 U/L (0-35) H 05/25/25 14:14
Alkaline Phosphatase 128 U/L (38-126) H 05/25/25 14:14
Lipase 243 U/L (23-300) 05/25/25 14:14
Data Reviewed
-
CT Scan: Report Reviewed by me
Lab Data: Labs Reviewed by me
Old Records: Reviewed
Impression/Plan
-
IMPRESSION:
39-year-old female with past medical history significant for alcohol cirrhosis who has a last drink almost 2 years ago presenting to the emergency department worsening ascites. Admitted 10 days ago with jaundice and elevated bilirubin to 10.2 in
the setting of Macrobid use. The transaminitis and hyperbilirubinemia was attributed to idiopathic effect of Macrobid. She had improvement in bilirubin to 8 headache, discharge and now to 7.2. At that time she had mild ascites. She now presents
with increasing abdominal distention and is found to have moderate to large ascites. She has very trace ankle edema. She is afebrile, has no leukocytosis and denies any abdominal pain. Her LFTs are similar to prior and improving. She is not
particularly tender on exam and we will await empiric antibiotics for SBP pending paracentesis.
PLAN:
Worsening ascites- possibly secondary to recent hepatic injury from Bactrim exposure. No encephalopathy. No GI bleed. Abdomen is not tense. Minimally tender to palp.
- admit to med/surg obs
- unlikely SBP, held off empirc abx for now
- IR consult for diagnostic/therapeutic paracentesis
- pain control and antiemetics
- diet as tolerated for now
- spironolactone/furosemide per GI
- GI consultation
She has outpatient abdominal mri pending which can also be use to follow up the finding on CT '2 adjacent small foci of hyperenhancement involving the left renal cortex. Exact etiology uncertain. Not apparent on prior imaging. Possibly reflecting
nonspecific inflammation/nephritis. A small enhancing mass is not entirely excluded. Recommend follow-up nonemergent MRI for additional characterization'
DVT PPX - SCDs
Code status - Full Code
[2025-05-26 07:27] LABS: ALT (SGPT) 34 U/L (0-35); AST (SGOT) 95 U/L (14-36); Albumin 2.5 g/dl (3.5-5.0); Alkaline Phosphatase 112 U/L (38-126); Blood Urea Nitrogen 6 mg/dl (7-17); Calcium 7.9 mg/dl (8.4-10.2); Carbon Dioxide 25 mmol/L (22-30); Chloride 109 mmol/L (98-107); Estimated Creatinine Clearance > 125 ml/min; Glucose 79 mg/dl (70-99); Potassium 3.4 mmol/L (3.5-5.1); Sodium 136 mmol/L (135-145); Total Protein 6.1 g/dl (6.3-8.2); eGFR > 60.00
[2025-05-26 07:40] LABS: Hematocrit 34.1 % (37.0-47.0); Hemoglobin 11.6 g/dL (12.0-16.0); Mean Corp Hgb Conc. 34.0 g/dL (33.0-37.0); Mean Corpuscular Volume 98.6 fL (81.0-99.0); Platelet Count 89 10^3/uL (130-400); Red Cell Dist. Width 13.9 % (11.5-14.5)
[2025-05-26 07:57] VITALS: BP 110/77
--- NOTE | 2025-05-26 08:26 | CON.GI ---
Consultation
-
Date/Time Consultation Requested: 05/25/25
Date/Time Consultation Performed: 05/26/25
Requesting Provider: Dr. Sheldon
Performing Provider: Dr. Morales
Reason for Consultation: ascites, liver cirrohsis
Medical History
Chief Complaint / HPI
Chief Complaint: ascites
History of Present Illness:
Ms Estrada is a 39-year-old female with past medical history significant for alcohol cirrhosis with previous complication of withdrawal seizure jaundice who now presents to the emergency department with abdominal pain and increasing distention. Patient
was seen in the emergency department approximately 10 days ago for jaundice with cholestatic jaundice pattern with mild transaminitis. Patient had abdominal imaging with CT abdomen pelvis and Doppler ultrasound of abdomen showing known changes of
cirrhosis and portal hypertension. She had small amount of ascites which was not felt to be symptomatic at that time. Jaundice was felt to be related to Macrobid use for treatment of a urinary tract infection. Bilirubin was 8.2 at time of
discharge.
She now reports worsening abdominal distention. She reported that this has been going on since her discharge. She attempted to follow-up with gastroenterology but was not able to reach anyone a week ago. Due to progression of her distention and
increased weight she decided to come into the emergency department today. She reports 1 episode of nausea but no vomiting. She denies any diarrhea. She denies any melena or hematochezia. She has never required paracentesis before. She denies any
fevers, chills, dysuria. She follows with Dr. Bond and is scheduled to have an MRI abdomen in June. She has not drank any alcohol since 2023.
In the emergency department she was afebrile INR was 1.8. Total bilirubin was 7.2 with a AST of 104 and ALT of 37. CT of the abdomen pelvis showing cirrhosis with evidence of portal hypertension and splenomegaly portosystemic venous collaterals, and
moderate to large volume ascites. No focal collection or abscess. No free air. Probable nonspecific small bowel dysmotility/ileus. No definite evidence to suggest bowel obstruction.
She reports that she does not take any medications with the exception of a multivitamin and recent Macrobid for her UTI.
Past Medical History
Past Medical History: Psychiatric (Alcohol use disorder, withdrawal seizure) and Other (Liver cirrhosis)
Past Surgical History: Gynecological (Ectopic x 2 with removal of left fallopian tube) and Other
Social History
Tobacco: Non-Smoker
Alcohol: Former (Quit 2023)
Drug: None
Family History
Family History: Reviewed & Not Pertinent
Allergies / Home Medications
Allergy/AdvReac Type Severity Reaction Status Date / Time
nitrofurantoin (From AdvReac Severe Unknown Verified 05/25/25 14:02
Macrobid)
�Medication �Instructions �Recorded
therapeutic multivitamin 1 tab PO DAILY 05/25/25
Review of Systems
-
History Source: Patient
Constitutional: Reports Weight Gain; Denies Fever
EENT: Denies Tearing, Sore Throat or Runny Nose
Respiratory: Reports No Symptoms; Denies Cough or Trouble Breathing
Cardiac: Denies Chest Pain
Abdomen/GI: Reports Abdominal Pain, Nausea and Vomiting; Denies Diarrhea, Constipated, Bloody Stools or Black Stools
: Reports Other (Decreased urinary output)
Skin: Denies Itching or Rash
Hematologic/Lymphatic: Denies Bleeding or Bruising
Vital Signs
Temp Pulse Resp BP Pulse Ox
98.1 F 106 18 110/77 97
05/26/25 07:57 05/26/25 07:57 05/26/25 07:57 05/26/25 07:57 05/26/25 07:57
Physical Exam
Exam
General: Well Developed and Well Nourished
HEENT: Normocephalic and Other (Scleral icterus)
Respiratory: Clear and Other (Decreased breath sounds bilaterally)
Cardiac: S1/S2 and Regular Rhythm
GI: Non Tender, Normal Bowel Sounds and Distended
Skin: Warm and Dry
Neuro: Awake, Alert and Oriented
Results
WBC 3.7 10^3/uL (4.8-10.8) L 05/26/25 06:12
Hgb 11.6 g/dL (12.0-16.0) L 05/26/25 06:12
Hct 34.1 % (37.0-47.0) L 05/26/25 06:12
MCV 98.6 fL (81.0-99.0) 05/26/25 06:12
Plt Count 89 10^3/uL (130-400) L 05/26/25 06:12
Absolute Neuts (auto) 3.8 10^3/uL (1.4-6.5) 05/25/25 14:14
PT 21.0 Sec (11.4-14.6) H 05/25/25 16:29
INR 1.79 05/25/25 16:29
Sodium 136 mmol/L (135-145) 05/26/25 06:12
Potassium 3.4 mmol/L (3.5-5.1) L 05/26/25 06:12
Chloride 109 mmol/L (98-107) H 05/26/25 06:12
Carbon Dioxide 25 mmol/L (22-30) 05/26/25 06:12
BUN 6 mg/dl (7-17) L 05/26/25 06:12
Creatinine 0.5 mg/dL (0.6-1.0) L 05/26/25 06:12
Calcium 7.9 mg/dl (8.4-10.2) L 05/26/25 06:12
Total Bilirubin 6.1 mg/dl (0.2-1.3) H 05/26/25 06:12
AST 95 U/L (14-36) H 05/26/25 06:12
ALT 34 U/L (0-35) 05/26/25 06:12
Alkaline Phosphatase 112 U/L (38-126) 05/26/25 06:12
Lipase 243 U/L (23-300) 05/25/25 14:14
Diagnostic Image Results:
CT abdomen pelvis 05/25/2025:
IMPRESSION:
Cirrhosis. Evidence of portal hypertension with splenomegaly, portosystemic venous collaterals, and moderate to large volume ascites. No focal collection or abscess. No free air. Probable nonspecific small bowel dysmotility/ileus. No definite
evidence to suggest bowel obstruction.
Diffuse gallbladder wall thickening measuring up to 6 mm, which is equivocal in the presence of ascites. No apparent gallstones by CT.
There are 2 adjacent small foci of hyperenhancement involving the left renal cortex. Exact etiology uncertain. Not apparent on prior imaging. Possibly reflecting nonspecific inflammation/nephritis. A small enhancing mass is not entirely excluded.
Recommend follow-up nonemergent MRI for additional characterization.
Doppler ultrasound 05/13/2025:
IMPRESSION:
1. Abnormal hepatic vein waveforms and high resistance hepatic artery waveform in keeping with cirrhosis.
2. Dilated splenic vein in keeping with portal hypertension.
Abdominal ultrasound 05/12/2025:
IMPRESSION:
Hepatic cirrhosis with secondary findings of portal hypertension including splenomegaly and mild abdominal ascites.
Gallbladder wall thickening is favored to be reactive. No cholelithiasis. No evidence for bile duct dilatation.
Prior GI Procedures:
EGD:
Endoscopy 12/20/2023:
Impression: - Grade I esophageal varices.
- Tortuous esophagus.
- Z-line regular, 35 cm from the incisors.
- Portal hypertensive gastropathy. Biopsied.
- Normal examined duodenum. Biopsied.
Colonoscopy:
Assessment / Plan
-
Li is a 39-year-old female with a past medical history of alcoholic liver cirrhosis secondary to chronic alcohol use disorder (in remission since 2023), with history of withdrawal seizures, who presented to the ED for complaints of jaundice
and abd discomfort, and was admitted for decompensated liver cirrhosis
#Decompensated alcoholic liver cirrhosis, not currently drinking
#Ascites
#Hyperbilirubinemia
MELD-Na Score on Admission: 23
Maddrey's Discriminant Function: 39.4, poor prognosis may benefit from steroids
Etiology of decompensation most likely due to previous Macrobid use vs. secondary to previous urinary infection vs. multifactorial
- recent infectious workup thus far negative
- low suspicion for alcoholic hepatitis -- would hold off on prednisone at this time
- C/t trend CMP
- T bili downtrending
- AST/ALT/ALP downtrending
- recommend para with albumin if required, fluid analysis, diuretics
This note is preliminary, refer to attending note for final recommendations
-
-
Thank you for consultation and allowing me to participate in the patient's care. Please call the environmental services associate GI physician during the after hours with any questions or concerns.
[2025-05-26 10:40] VITALS: BP 108/86
[2025-05-26 11:44] VITALS: BP 106/76; BP_SYST 100
[2025-05-26 11:48] VITALS: BP 106/76
[2025-05-26 12:31] LABS: Body Fluid Second Tech ASW
--- NOTE | 2025-05-26 13:49 | CM ---
Reviewed the chart notes and spoke with the patient at the bedside. The patient is been admitted under observational status. The observational letter was provided and explained. The patient had no questions with regards to the letter.
The patient resides with her spouse in a two story home with five steps to enter. The patient reports no DME/VN/SNF in the past. The patient confirmed her pharmacy of choice is [facility]. continues to be available to
patient/family and is monitoring medical plan for needs at discharge.
Plan: Discharge to home when medically stable. Patient's spouse will provide transportation.
--- NOTE | 2025-05-26 14:28 | W.DS.TRANS ---
DC Summary - Lamp [employer]
-
Discharge Instructions:
Discharge Diagnosis/Procedures Cirrhosis.
Ascites.
Status post paracentesis
Diet 2 Gram Sodium
Blood Work CMP in 7 days
Instructions:
Stand-Alone Forms:
Changes to Home Medications: Yes
Discharge Medications:
DC Medications w/original date entered in [facility]
therapeutic multivitamin 1 tab PO DAILY Supplement 05/25/25
furosemide 20 mg tablet 20 mg PO DAILY #30 tabs 05/26/25
spironolactone 50 mg tablet 50 mg PO DAILY #30 tabs 05/26/25
Home Medication Changes
Initiated on diuretics
Pending Results: No
[2025-05-26 15:54] VITALS: BP 107/61
--- NOTE | 2025-05-26 17:01 | PTCARENOTE ---
Patient discharged home with no needs. This RN removed patient's IV and took vitals prior to DC. Patient dressed and gathered belongings independently in room. This RN reviewed discharge medications and instructions with patient who verbalized
understanding. Patient refused wheelchair escort and ambulated down to car at [facility]. Patient okay to drive self home per MD.
== END 2025-05-26 17:00 | disposition home or self-care (01) ==
LOC: 2 NORTH 22:03
PROVIDERS: Emergency Medicine; Nurse Practitioner Family; Physician Assistant; ADMITTING PHYSICIAN Internal Medicine; ATTENDING PHYSICIAN Internal Medicine; EMERGENCY PHYSICIAN Emergency Medicine; FAMILY PHYSICIAN Nurse Practitioner Primary Care; OTHER PHYSICIAN Internal Medicine Gastroenterology
DX: K70.31 Alcoholic cirrhosis of liver with ascites (principal); R10.9 Unspecified abdominal pain; R74.01 Elevation of levels of liver transaminase levels; R14.0 Abdominal distension (gaseous); E66.9 Obesity, unspecified; K76.6 Portal hypertension; K31.89 Other diseases of stomach and duodenum; I85.10 Secondary esophageal varices without bleeding; K82.8 Other specified diseases of gallbladder; R16.1 Splenomegaly, not elsewhere classified; Z90.79 Acquired absence of other genital organ(s); Z87.440 Personal history of urinary (tract) infections; Z68.33 Body mass index [BMI] 33.0-33.9, adult; Z88.1 Allergy status to other antibiotic agents; Z87.59 Personal history of other complications of pregnancy, childbirth and the puerperium; Z79.899 Other long term (current) drug therapy
CPT/HCPCS: 99285; 49083; 74177; 80053; 82042; 82150; 83615; 83690; 84157; 84703; 85025; 85027; 85610; 87015; 87070; 87205; 88112; 88305; 89051; G0378; Q9967

== ENCOUNTER → 2025-06-16 18:28 | Outpatient (REF) | payer OTHER, SELFPAY | LOC: MRI 18:28 | PROVIDERS: ATTENDING PHYSICIAN Internal Medicine Gastroenterology; FAMILY PHYSICIAN Nurse Practitioner Primary Care | DX: K70.10 Alcoholic hepatitis without ascites (principal) | CPT/HCPCS: 74183; A9581 ==

== ENCOUNTER → 2025-07-10 07:25 | Outpatient (REF) | payer OTHER, SELFPAY | LOC: HWRAD 07:25 | PROVIDERS: ATTENDING PHYSICIAN Internal Medicine Gastroenterology; FAMILY PHYSICIAN Nurse Practitioner Primary Care | DX: K74.60 Unspecified cirrhosis of liver (principal) | CPT/HCPCS: 76700 ==